=== PATIENT | female | born 1990 | race Caucasian/White ===

== ENCOUNTER 2018-02-03 12:10 | Emergency (ER) | payer SELFPAY ==
[~2018-02-03] VITALS: Ht 170.2 cm; Wt 154.5 kg
[2018-02-03 12:19] VITALS: Ht 170.2 cm; Wt 154.5 kg
[2018-02-03 12:52] LABS: BASOPHILS 0.2 % (0-2); EOSINOPHILS 0.5 % (0-7); HEMOGLOBIN 14.7 g/dL (12-16); IMMATURE GRANULOCYTES 0.2 % (0-5); LYMPHOCYTES 31.2 % (15-50); MCH 31.1 pg (26.0-34.0); MCV 88.8 fL (80.0-100.0); MEAN PLATELET VOLUME 10.1 fL (7.4-10.4); MONOCYTES 5.5 % (2-11); NEUTROPHILS 62.4 % (40-80); PLATELET COUNT 313 10x3/uL (130-400); RBC 4.73 10x6/uL (4.00-5.40); RDW 12.8 % (11.5-14.5); WBC 12.7 10x3/uL (4.8-10.8)
[2018-02-03 12:53] LABS: APPEARANCE HAZY (CLEAR); BACTERIA NONE SEEN /hpf (NONE SEEN); BILIRUBIN NEGATIVE (NEGATIVE); COLOR YELLOW (YELLOW); EPITHELIAL CELLS 0-5 /hpf (0-5); GLUCOSE NEGATIVE (NEGATIVE); KETONE NEGATIVE (NEGATIVE); NITRITE NEGATIVE (NEGATIVE); PROTEIN NEGATIVE (NEGATIVE); RED CELLS - URINE RARE /hpf (0-5); SPECIFIC GRAVITY 1.015 (1.005-1.020); UROBILINOGEN NORMAL (NORMAL); WHITE CELLS - URINE OCC /hpf (0-5)
[2018-02-03 13:06] LABS: ALBUMIN 3.7 g/dL (3.4-5.0); ALKALINE PHOSPHATASE 89 U/L (46-116); ALT (SGPT) 41 U/L (10-68); AMYLASE - SERUM 24 U/L (25-115); BILIRUBIN - TOTAL 0.26 mg/dL (0.2-1.3); CALC OSMOLALITY 269 mosm/kg (275-300); CALCIUM 9.3 mg/dL (8.5-10.1); CARBON DIOXIDE 24.6 mmol/L (21.0-32.0); CHLORIDE - SERUM 100 mmol/L (98-107); CREATININE - SERUM 0.8 mg/dL (0.6-1.3); GLUCOSE 94 mg/dL (74-106); LIPASE 99 U/L (73-393); POTASSIUM - SERUM 4.1 mmol/L (3.5-5.1); PROTEIN - SERUM 8.7 g/dL (6.4-8.2); SODIUM 135 mmol/L (136-145); UREA NITROGEN 13 mg/dL (7-18); eGFR NON AFRICAN AMERICAN 90 mL/min (90-120)
[2018-02-03 13:58] LABS: HCG URINE NEGATIVE (NEGATIVE)
[2018-02-03] MEDS ORDERED: ZOFRAN8 MG PO (16:10)
[2018-02-03 18:54] VITALS: BP 116/65
== END 2018-02-03 18:55 | disposition home or self-care (01) ==
LOC: D.ER 12:10
PROVIDERS: Emergency Medicine
DX: R10.32 Left lower quadrant pain (principal); F17.200 Nicotine dependence, unspecified, uncomplicated; R19.7 Diarrhea, unspecified

== ENCOUNTER 2018-02-05 17:42 | Emergency (ER) | payer MEDICAID ==
[~2018-02-05] VITALS: Ht 170.2 cm; Wt 154.5 kg
[~2018-02-05 17:42] MED LIST: ZOFRAN8 MG PO
[2018-02-05 17:53] VITALS: Ht 170.2 cm; Wt 154.5 kg
[2018-02-05] MEDS ORDERED: VIBRAMYCIN 100100 MG PO (19:01)
[2018-02-05] MEDS ORDERED: VOLTAREN75 MG PO (19:01)
[2018-02-05 19:55] VITALS: BP 132/90
== END 2018-02-05 19:55 | disposition home or self-care (01) ==
LOC: D.ER 17:42
DX: L03.113 Cellulitis of right upper limb (principal); F17.200 Nicotine dependence, unspecified, uncomplicated

== ENCOUNTER 2018-02-17 13:51 | Emergency (ER) | payer MEDICAID ==
[~2018-02-17 13:51] MED LIST changes: +VIBRAMYCIN 100100 MG PO; +VOLTAREN75 MG PO
[2018-02-17 14:05] VITALS: Ht 170.2 cm
[2018-02-17] MEDS ORDERED: TORADOL10 MG PO (15:17)
[2018-02-17] MEDS ORDERED: MEDROL DOSE PACK4 MG PO (15:17)
[2018-02-17] MEDS ORDERED: CLEOCIN HCL300 MG PO (15:17)
[2018-02-17 15:21] VITALS: BP 149/82
== END 2018-02-17 15:21 | disposition home or self-care (01) ==
LOC: D.ER 13:51
DX: R21 Rash and other nonspecific skin eruption (principal); F17.200 Nicotine dependence, unspecified, uncomplicated

== ENCOUNTER 2018-02-19 09:20 | Emergency (ER) | payer SELFPAY ==
[~2018-02-19] VITALS: Ht 170.2 cm; Wt 154.2 kg
[~2018-02-19 09:20] MED LIST changes: +CLEOCIN HCL300 MG PO; +MEDROL DOSE PACK4 MG PO; +TORADOL10 MG PO
[2018-02-19 09:29] VITALS: Ht 170.2 cm; Wt 154.2 kg
[2018-02-19 10:53] VITALS: BP 118/63
== END 2018-02-19 10:54 | disposition home or self-care (01) ==
LOC: D.ER 09:20
DX: L03.114 Cellulitis of left upper limb (principal)

== ENCOUNTER 2018-03-11 16:43 | Emergency (ER) | payer MEDICAID ==
[~2018-03-11] VITALS: Ht 170.2 cm; Wt 154.5 kg
[2018-03-11 16:45] VITALS: Ht 170.2 cm; Wt 154.5 kg
[2018-03-11] MEDS ORDERED: PEPCID AC20 MG PO (17:22)
[2018-03-11] MEDS ORDERED: KENALOG 0.1 % O15 GM TOPICAL (17:22)
[2018-03-11 17:40] VITALS: BP 146/89
[2018-03-12] MEDS ORDERED: MEDROL DOSE PACK4 MG PO (12:44)
== END 2018-03-11 17:41 | disposition home or self-care (01) ==
LOC: D.ER 16:43
DX: L50.9 Urticaria, unspecified (principal); F17.200 Nicotine dependence, unspecified, uncomplicated

== ENCOUNTER 2018-03-12 07:55 | Emergency (ER) | payer MEDICAID ==
[~2018-03-12] VITALS: Ht 170.2 cm; Wt 154.5 kg
[~2018-03-12 07:55] MED LIST changes: +KENALOG 0.1 % O15 GM TOPICAL; +PEPCID AC20 MG PO
[2018-03-12 07:58] VITALS: Ht 170.2 cm; Wt 154.5 kg
[2018-03-12 08:45] LABS: BASOPHILS 0.2 % (0-2); HEMATOCRIT 40.9 % (36.0-48.0); IMMATURE GRANULOCYTES 0.2 % (0-5); LYMPHOCYTES 34.7 % (15-50); MCH 31.2 pg (26.0-34.0); MCHC 34.2 g/dL (31.0-37.0); MCV 91.1 fL (80.0-100.0); MEAN PLATELET VOLUME 10.1 fL (7.4-10.4); MONOCYTES 6.5 % (2-11); NEUTROPHILS 57.4 % (40-80); PLATELET COUNT 252 10x3/uL (130-400); RBC 4.49 10x6/uL (4.00-5.40); RDW 13.2 % (11.5-14.5)
[2018-03-12 08:54] LABS: ALBUMIN 3.3 g/dL (3.4-5.0); ALKALINE PHOSPHATASE 74 U/L (46-116); ALT (SGPT) 23 U/L (10-68); BILIRUBIN - TOTAL 0.31 mg/dL (0.2-1.3); C-REACTIVE PROTEIN 1.8 mg/dL (0.0-0.9); CALC OSMOLALITY 274 mosm/kg (275-300); CARBON DIOXIDE 28.1 mmol/L (21.0-32.0); CHLORIDE - SERUM 104 mmol/L (98-107); CREATININE - SERUM 0.7 mg/dL (0.6-1.3); GLUCOSE 96 mg/dL (74-106); PROTEIN - SERUM 7.4 g/dL (6.4-8.2); SODIUM 138 mmol/L (136-145); UREA NITROGEN 9 mg/dL (7-18); eGFR NON AFRICAN AMERICAN > 90 mL/min (90-120)
[2018-03-12 09:59] LABS: ERYTHROCYTE SEDIMENTATION RATE 14 mm/hr (0-20)
[2018-03-12] MEDS ORDERED: MEDROL DOSE PACK4 MG PO (12:44)
[2018-03-12 13:04] VITALS: BP 141/65
[2018-03-13 06:15] LABS: RAPID PLASMA REAGIN Non Reactive (Non Reactive)
== END 2018-03-12 13:07 | disposition home or self-care (01) ==
LOC: D.ER 07:55
PROVIDERS: Family Medicine
DX: L50.9 Urticaria, unspecified (principal); T78.40XA Allergy, unspecified, initial encounter; J02.9 Acute pharyngitis, unspecified; F17.200 Nicotine dependence, unspecified, uncomplicated

== ENCOUNTER 2018-03-15 08:28 | Emergency (ER) | payer MEDICAID ==
[2018-03-15 08:35] VITALS: Ht 170.2 cm
[2018-03-15] MEDS ORDERED: HYDROXYZINE HCL50 MG PO (09:12)
[2018-03-15] MEDS ORDERED: ZITHROMAX TRI-500 MG PO (09:12)
[2018-03-15] MEDS ORDERED: NORCO 5/325 TAB1 TAB PO (09:13)
[2018-03-15 09:49] VITALS: BP 150/088
== END 2018-03-15 09:51 | disposition home or self-care (01) ==
LOC: D.ER 08:28
DX: L50.9 Urticaria, unspecified (principal); F17.200 Nicotine dependence, unspecified, uncomplicated

== ENCOUNTER 2018-04-02 12:39 | Emergency (ER) | payer MEDICAID ==
[~2018-04-02] VITALS: Ht 170.2 cm; Wt 168.2 kg
[~2018-04-02 12:39] MED LIST changes: +HYDROXYZINE HCL50 MG PO; +NORCO 5/325 TAB1 TAB PO; +ZITHROMAX TRI-500 MG PO
[2018-04-02 13:00] VITALS: Ht 170.2 cm; Wt 168.2 kg
[2018-04-02] MEDS ORDERED: VENTOLIN HFA18 GM INH (17:20)
[2018-04-02 17:45] VITALS: BP 131/77
== END 2018-04-02 17:46 | disposition home or self-care (01) ==
LOC: D.ER 12:39
DX: J40 Bronchitis, not specified as acute or chronic (principal); R09.89 Other specified symptoms and signs involving the circulatory and respiratory systems; F17.200 Nicotine dependence, unspecified, uncomplicated

== ENCOUNTER 2018-04-09 09:06 | Emergency (ER) | payer MEDICAID ==
[2018-04-09 09:57] LABS: BASOPHILS 0.2 % (0-2); EOSINOPHILS 1.2 % (0-7); HEMATOCRIT 41.5 % (36.0-48.0); HEMOGLOBIN 14.1 g/dL (12-16); IMMATURE GRANULOCYTES 0.5 % (0-5); LYMPHOCYTES 34.2 % (15-50); MCV 91.2 fL (80.0-100.0); MONOCYTES 4.4 % (2-11); NEUTROPHILS 59.5 % (40-80); PLATELET COUNT 250 10x3/uL (130-400); RBC 4.55 10x6/uL (4.00-5.40); RDW 13.3 % (11.5-14.5); WBC 10.5 10x3/uL (4.8-10.8)
[2018-04-09 10:17] LABS: ALBUMIN 3.3 g/dL (3.4-5.0); ALKALINE PHOSPHATASE 70 U/L (46-116); ALT (SGPT) 26 U/L (10-68); BILIRUBIN - TOTAL 0.26 mg/dL (0.2-1.3); CALC OSMOLALITY 275 mosm/kg (275-300); CALCIUM 8.6 mg/dL (8.5-10.1); CARBON DIOXIDE 24.2 mmol/L (21.0-32.0); CHLORIDE - SERUM 102 mmol/L (98-107); CREATININE - SERUM 0.6 mg/dL (0.6-1.3); GLUCOSE 112 mg/dL (74-106); POTASSIUM - SERUM 4.3 mmol/L (3.5-5.1); PROTEIN - SERUM 7.9 g/dL (6.4-8.2); SODIUM 137 mmol/L (136-145); UREA NITROGEN 14 mg/dL (7-18); eGFR NON AFRICAN AMERICAN > 90 mL/min (90-120)
== END 2018-04-09 11:38 | disposition home or self-care (01) ==
LOC: D.ER 09:06
PROVIDERS: Family Medicine
DX: R05 Cough (principal); R07.89 Other chest pain; R09.89 Other specified symptoms and signs involving the circulatory and respiratory systems; R07.81 Pleurodynia; F17.200 Nicotine dependence, unspecified, uncomplicated

== ENCOUNTER 2018-05-10 11:05 | Emergency (ER) | payer MEDICAID ==
[~2018-05-10] VITALS: Ht 170.2 cm; Wt 150.0 kg
[~2018-05-10 11:05] MED LIST changes: +ACETAMINOPHEN500 M1 PO; +CYCLOBENZAPRINE10 MG PO; +SCOT-TUSSI10 MG/5 ML PO; +VENTOLIN HFA18 GM INH
[2018-05-10 11:36] VITALS: Ht 170.2 cm; Wt 150.0 kg
[2018-05-10] MEDS ORDERED: ZANTAC300 MG PO (11:39)
[2018-05-10] MEDS ORDERED: ZYRTEC10 MG PO (11:41)
[2018-05-10] MEDS ORDERED: FIORICET/ESGIC1 TAB PO (11:41)
[2018-05-10] MEDS ORDERED: PENICILLIN V P500 MG PO (11:42)
[2018-05-10 14:27] LABS: HEMATOCRIT 37.1 % (36.0-48.0); HEMOGLOBIN 12.9 g/dL (12-16); LYMPHOCYTES 30.6 % (15-50); MCHC 34.8 g/dL (31.0-37.0); MCV 89.2 fL (80.0-100.0); MEAN PLATELET VOLUME 10.1 fL (7.4-10.4); NEUTROPHILS 63.3 % (40-80); PLATELET COUNT 232 10x3/uL (130-400); RBC 4.16 10x6/uL (4.00-5.40); RDW 12.4 % (11.5-14.5); WBC 10.7 10x3/uL (4.8-10.8)
[2018-05-10 14:30] LABS: ALBUMIN 3.2 g/dL (3.4-5.0); ALKALINE PHOSPHATASE 66 U/L (46-116); ALT (SGPT) 28 U/L (10-68); BILIRUBIN - TOTAL 0.22 mg/dL (0.2-1.3); CALC OSMOLALITY 275 mosm/kg (275-300); CALCIUM 8.5 mg/dL (8.5-10.1); CARBON DIOXIDE 25.9 mmol/L (21.0-32.0); CHLORIDE - SERUM 103 mmol/L (98-107); CREATININE - SERUM 0.7 mg/dL (0.6-1.3); GLUCOSE 90 mg/dL (74-106); POTASSIUM - SERUM 3.9 mmol/L (3.5-5.1); PROTEIN - SERUM 7.3 g/dL (6.4-8.2); SODIUM 138 mmol/L (136-145); UREA NITROGEN 13 mg/dL (7-18); eGFR NON AFRICAN AMERICAN > 90 mL/min (90-120)
[2018-05-10] MEDS ORDERED: ZOFRAN4 MG PO (14:39)
[2018-05-10 14:52] VITALS: BP 119/40
== END 2018-05-10 14:54 | disposition home or self-care (01) ==
LOC: D.ER 11:05
PROVIDERS: Family Medicine
DX: G43.909 Migraine, unspecified, not intractable, without status migrainosus (principal); R11.2 Nausea with vomiting, unspecified; F17.200 Nicotine dependence, unspecified, uncomplicated

== ENCOUNTER → 2018-06-15 08:49 | Outpatient (CLI) | payer MEDICAID ==
[2018-05-10 11:36] VITALS: BMI 51.8
[~2018-06-15 08:49] MED LIST changes: +FIORICET/ESGIC1 TAB PO; +PENICILLIN V P500 MG PO; +ZANTAC300 MG PO; +ZOFRAN4 MG PO; +ZYRTEC10 MG PO
== END | disposition home or self-care (01) ==
LOC: D.RAD 08:49
DX: R05 Cough (principal)

== ENCOUNTER → 2018-06-29 17:48 | Outpatient (CLI) | payer MEDICAID ==
[2018-05-10 11:36] VITALS: BMI 51.8
[~2018-06-29 17:48] MED LIST changes: +ADDERALL 10 MG10 MG PO; +ADDERALL 20 MG20 M1 PO; +IBUPROFEN800 MG PO; +KLONOPIN0.5 MG PO
== END | disposition home or self-care (01) ==
LOC: D.LABREF 17:48
PROVIDERS: ATTEND Student in an Organized Health Care Education/Training Program
DX: R53.83 Other fatigue (principal)

== ENCOUNTER 2018-07-05 11:21 | Emergency (ER) | payer MEDICAID ==
[~2018-07-05] VITALS: Ht 170.2 cm; Wt 172.7 kg
[~2018-07-05 11:21] MED LIST changes: -ADDERALL 10 MG10 MG PO; -ADDERALL 20 MG20 M1 PO; -IBUPROFEN800 MG PO; -KLONOPIN0.5 MG PO
[2018-07-05 11:26] VITALS: Ht 170.2 cm; Wt 172.7 kg
[2018-07-05] MEDS ORDERED: ADDERALL 20 MG20 M1 PO (11:28)
[2018-07-05] MEDS ORDERED: IBUPROFEN800 MG PO (11:29)
[2018-07-05] MEDS ORDERED: KLONOPIN0.5 MG PO (11:29)
[2018-07-05] MEDS ORDERED: ADDERALL 10 MG10 MG PO (11:29)
[2018-07-05 12:14] LABS: BASOPHILS 0.5 % (0-2); EOSINOPHILS 0.6 % (0-7); HEMATOCRIT 39.3 % (36.0-48.0); HEMOGLOBIN 13.4 g/dL (12-16); IMMATURE GRANULOCYTES 0.3 % (0-5); LYMPHOCYTES 33.6 % (15-50); MCH 30.7 pg (26.0-34.0); MCHC 34.1 g/dL (31.0-37.0); MCV 90.1 fL (80.0-100.0); MEAN PLATELET VOLUME 10.2 fL (7.4-10.4); RBC 4.36 10x6/uL (4.00-5.40); RDW 12.9 % (11.5-14.5); WBC 10.9 10x3/uL (4.8-10.8)
[2018-07-05 12:19] LABS: PLATELET COUNT 282 10x3/uL (130-400)
[2018-07-05 12:20] LABS: APPEARANCE CLEAR (CLEAR); BILIRUBIN NEGATIVE (NEGATIVE); COLOR YELLOW (YELLOW); GLUCOSE NEGATIVE (NEGATIVE); KETONE NEGATIVE (NEGATIVE); NITRITE NEGATIVE (NEGATIVE); PROTEIN NEGATIVE (NEGATIVE); UROBILINOGEN NORMAL (NORMAL)
[2018-07-05 12:28] LABS: HCG SERUM NEGATIVE (NEGATIVE)
[2018-07-05 12:35] LABS: ALBUMIN 3.5 g/dL (3.4-5.0); ALKALINE PHOSPHATASE 83 U/L (46-116); ALT (SGPT) 32 U/L (10-68); AMYLASE - SERUM 20 U/L (25-115); BILIRUBIN - TOTAL 0.27 mg/dL (0.2-1.3); CALC OSMOLALITY 274 mosm/kg (275-300); CALCIUM 8.8 mg/dL (8.5-10.1); CARBON DIOXIDE 26.2 mmol/L (21.0-32.0); CHLORIDE - SERUM 101 mmol/L (98-107); CREATININE - SERUM 0.6 mg/dL (0.6-1.3); GLUCOSE 90 mg/dL (74-106); LIPASE 72 U/L (73-393); POTASSIUM - SERUM 4.3 mmol/L (3.5-5.1); SODIUM 138 mmol/L (136-145); UREA NITROGEN 10 mg/dL (7-18); eGFR NON AFRICAN AMERICAN > 90 mL/min (90-120)
[2018-07-05] MEDS ORDERED: TORADOL10 MG PO (18:07)
[2018-07-05 19:33] VITALS: BP 148/78
== END 2018-07-05 19:36 | disposition home or self-care (01) ==
LOC: D.ER 11:21
PROVIDERS: Family Medicine
DX: N94.89 Other specified conditions associated with female genital organs and menstrual cycle (principal); F17.200 Nicotine dependence, unspecified, uncomplicated

== ENCOUNTER → 2018-07-19 08:15 | Outpatient (CLI) | payer MEDICAID ==
[2018-07-05 11:26] VITALS: BMI 59.6
[~2018-07-19 08:15] MED LIST changes: +ADDERALL 10 MG10 MG PO; +ADDERALL 20 MG20 M1 PO; +IBUPROFEN800 MG PO; +KLONOPIN0.5 MG PO; +ZOLOFT25 MG PO
== END | disposition home or self-care (01) ==
LOC: D.CT 08:00
PROVIDERS: ATTEND Internal Medicine Gastroenterology
DX: R10.33 Periumbilical pain (principal); R10.812 Left upper quadrant abdominal tenderness; R11.2 Nausea with vomiting, unspecified

== ENCOUNTER → 2018-07-25 06:00 | Day surgery (SDC) | payer MEDICAID ==
[2018-07-24 11:11] LABS: BASOPHILS 0.3 % (0-2); EOSINOPHILS 0.8 % (0-7); HEMATOCRIT 38.6 % (36.0-48.0); HEMOGLOBIN 13.2 g/dL (12-16); IMMATURE GRANULOCYTES 0.3 % (0-5); LYMPHOCYTES 30.3 % (15-50); MCH 30.8 pg (26.0-34.0); MCHC 34.2 g/dL (31.0-37.0); MEAN PLATELET VOLUME 10.1 fL (7.4-10.4); MONOCYTES 4.3 % (2-11); PLATELET COUNT 294 10x3/uL (130-400); RBC 4.29 10x6/uL (4.00-5.40); WBC 11.8 10x3/uL (4.8-10.8)
[~2018-07-25] VITALS: Ht 170.2 cm; Wt 176.0 kg
--- NOTE | ~2018-07-25 | OP ---
PATIENT NAME: RAY HERRING MEDICAL RECORD: [id number] :86 LOCATION:[facility] ADMISSION DATE: SURGEON: RAYMOND MANDUJANO MD DATE OF OPERATION: 07/25/2018 PREOPERATIVE DIAGNOSIS: Vulvar and periclitoral condyloma. POSTOPERATIVE DIAGNOSIS: Vulvar and periclitoral condyloma. PROCEDURE: Laser ablation of vulvar condyloma. SPECIMENS: Periclitoral condyloma. COMPLICATIONS: None apparent. FINDINGS: One 3- to 4-mm right vulvar condyloma, several 1-mm condyloma in the posterior fourchette, and a 2- to 3-mm periclitoral condyloma. DESCRIPTION OF PROCEDURE: I became involved in the procedure following the portion performed by Dr. Benton. The patient was prepped and draped in normal sterile fashion in the dorsal lithotomy position. The carbon dioxide laser was then calibrated and tested on a wooden tongue depressor. At this point, attention was turned to her right 3- to 4-mm vulvar condyloma, which was laser ablated to the level of the dermis, which remained intact. Following complete removal of condyloma, the Bovie cautery was used on a very low setting at the edges to decrease the size of the epidermal defect. Two to three 1-mm condylomas were then removed from the posterior fourchette. Attention was then turned to the prepuce of the clitoris where, on the left aspect, a 3-mm condyloma was identified. This was grasped with a forceps and removed at the level of the epidermis using the Metzenbaum scissors. The Bovie cautery on a very low setting was then used to ablate the surgical margins. The epidermal defect did not extend into the dermis and all sites were hemostatic. The patient tolerated the procedure well and was transferred to postanesthesia recovery stable without incident. TRANSINT:[id number] Voice Confirmation ID: [id number] DOCUMENT ID: [id number] RAYMOND MANDUJANO MD CC: [id number] DICTATION DATE: 08/05/18623 ACTIMIZE ARCHITECT: 08/05/18 1517 [facility] 07/25/18 [place] [address]
[~2018-07-25 06:00] MED LIST changes: +HYDROCODON-ACE1 EAC7 PO; +MIRALAX17 GM PO; +VALIUM5 MG PO
[2018-07-25 07:04] VITALS: BP 125/79; Ht 170.2 cm; Wt 176.0 kg
[2018-07-25 07:20] LABS: HCG URINE NEGATIVE (NEGATIVE)
== END | disposition home or self-care (01) ==
LOC: D.OPS 06:00 → D.PAN 08:15 → D.OPS 10:45 → D.PAN 10:45
PROVIDERS: Obstetrics & Gynecology; ATTEND Surgery
DX: K60.1 Chronic anal fissure (principal); A63.0 Anogenital (venereal) warts; N80.0 Endometriosis of uterus; R19.8 Other specified symptoms and signs involving the digestive system and abdomen; K64.0 First degree hemorrhoids; Z01.812 Encounter for preprocedural laboratory examination

== ENCOUNTER 2018-07-26 09:54 | Emergency (ER) | payer MEDICAID ==
[~2018-07-26] VITALS: Ht 170.2 cm; Wt 173.2 kg
[2018-07-26 10:05] VITALS: Ht 170.2 cm; Wt 173.2 kg
[2018-07-26 11:14] VITALS: BP 136/84
== END 2018-07-26 11:20 | disposition home or self-care (01) ==
LOC: D.ER 09:54
DX: G89.18 Other acute postprocedural pain (principal); F17.210 Nicotine dependence, cigarettes, uncomplicated; F41.8 Other specified anxiety disorders

== ENCOUNTER 2018-08-23 08:01 | Emergency (ER) | payer MEDICAID ==
[~2018-08-23] VITALS: Ht 170.2 cm; Wt 175.0 kg
[2018-08-23 08:11] VITALS: Ht 170.2 cm; Wt 175.0 kg
[2018-08-23] MEDS ORDERED: LEXAPRO10 MG (08:15)
[2018-08-23] MEDS ORDERED: PEPCID AC20 MG PO (08:47)
[2018-08-23] MEDS ORDERED: BENADRYL50 MG PO (08:47)
[2018-08-23] MEDS ORDERED: PREDNISONE20 MG PO (08:47)
[2018-08-23 09:21] VITALS: BP 132/70
== END 2018-08-23 09:17 | disposition home or self-care (01) ==
LOC: D.ER 08:01
DX: R21 Rash and other nonspecific skin eruption (principal); F17.200 Nicotine dependence, unspecified, uncomplicated

== ENCOUNTER 2018-08-30 13:19 | Emergency (ER) | payer MEDICAID ==
[~2018-08-30 13:19] MED LIST changes: +BENADRYL50 MG PO; +LEXAPRO10 MG; +PREDNISONE20 MG PO
[2018-08-30 13:26] VITALS: BP 158/86; BMI 60.4
[2018-08-30] MEDS ORDERED: VOLTAREN75 MG PO (14:12)
== END 2018-08-30 14:19 | disposition home or self-care (01) ==
LOC: D.ER 13:19
DX: R10.9 Unspecified abdominal pain (principal)

== ENCOUNTER 2018-09-09 09:56 | Emergency (ER) | payer MEDICAID ==
[2018-09-09 10:11] VITALS: BMI 60.4
[2018-09-09 11:26] VITALS: BP 132/88
== END 2018-09-09 11:31 | disposition home or self-care (01) ==
LOC: D.ER 09:56
DX: L50.9 Urticaria, unspecified (principal)

== ENCOUNTER 2018-09-12 11:11 | Emergency (ER) | payer MEDICAID ==
[~2018-09-12] VITALS: Ht 170.2 cm; Wt 173.3 kg
[2018-09-12 11:15] VITALS: Ht 170.2 cm; Wt 173.3 kg
[2018-09-12 11:53] LABS: BASOPHILS 0.2 % (0-2); HEMATOCRIT 41.4 % (36.0-48.0); IMMATURE GRANULOCYTES 0.2 % (0-5); LYMPHOCYTES 29.9 % (15-50); MCH 29.9 pg (26.0-34.0); MCHC 33.8 g/dL (31.0-37.0); MCV 88.3 fL (80.0-100.0); MEAN PLATELET VOLUME 10.3 fL (7.4-10.4); MONOCYTES 6.5 % (2-11); NEUTROPHILS 62.2 % (40-80); PLATELET COUNT 291 10x3/uL (130-400); RBC 4.69 10x6/uL (4.00-5.40); RDW 13.4 % (11.5-14.5); WBC 12.6 10x3/uL (4.8-10.8)
[2018-09-12 12:00] VITALS: BP 142/76
[2018-09-12 12:12] LABS: APPEARANCE CLEAR (CLEAR); BILIRUBIN NEGATIVE (NEGATIVE); COLOR YELLOW (YELLOW); GLUCOSE NEGATIVE (NEGATIVE); KETONE NEGATIVE (NEGATIVE); NITRITE NEGATIVE (NEGATIVE); PROTEIN NEGATIVE (NEGATIVE); UROBILINOGEN NORMAL (NORMAL)
[2018-09-12 12:13] LABS: BACTERIA FEW /hpf (NONE SEEN); EPITHELIAL CELLS 0-5 /hpf (0-5); RED CELLS - URINE RARE /hpf (0-5); WHITE CELLS - URINE RARE /hpf (0-5)
[2018-09-12 12:18] LABS: HCG URINE NEGATIVE (NEGATIVE)
[2018-09-12 12:20] LABS: ALBUMIN 3.2 g/dL (3.4-5.0); ALKALINE PHOSPHATASE 70 U/L (46-116); ALT (SGPT) 21 U/L (10-68); BILIRUBIN - TOTAL 0.17 mg/dL (0.2-1.3); CALC OSMOLALITY 274 mosm/kg (275-300); CALCIUM 8.5 mg/dL (8.5-10.1); CARBON DIOXIDE 26.3 mmol/L (21.0-32.0); CHLORIDE - SERUM 100 mmol/L (98-107); CREATININE - SERUM 0.7 mg/dL (0.6-1.3); GLUCOSE 96 mg/dL (74-106); PROTEIN - SERUM 7.5 g/dL (6.4-8.2); SODIUM 138 mmol/L (136-145); UREA NITROGEN 10 mg/dL (7-18); eGFR NON AFRICAN AMERICAN > 90 mL/min (90-120)
[2018-09-12 12:22] LABS: AMYLASE - SERUM 21 U/L (25-115); LIPASE 79 U/L (73-393)
[2018-09-12 12:24] LABS: TROPONIN-I < 0.017 ng/mL (0.000-0.060)
[2018-09-12] MEDS ORDERED: VISTARIL25 MG PO (13:54)
--- NOTE | 2018-09-13 17:30 | PN ---
PATIENT:RAY OBRIEN MEDICAL RECORD: [id number] LOCATION:[facility] ADMISSION DATE: 09/12/18 PROGRESS NOTE DATE OF SERVICE: 09/12/2018 PROGRESS NOTE: I was asked by the Emergency Room staff to come and see Ms. Obrien. She presents again complaining of abdominal pain as well as hives and nausea. I came to the patient's bedside. The entire history as well as physical examination was performed in the presence of a female director of human resources. Her PCP is Tj Richard. The patient has an appointment with Dr. Valdes sometime next month to discuss removal of some mesh. She states that she has a Ventrio ST mesh that has been recalled and she is certain that this is the source of her problem. She has seen Dr. Odell and he has done a laparoscopy on her. The patient is accompanied by her father. She has a normal eosinophil count. She states she has had hives since November. She has been told by a healthcare provider that he thought that the hives were due to a mesh infection. I performed limited physical examination on the patient. She does have some pain in the periumbilical area. This may be pain around the edge of the mesh. Sometimes when the abdominal wall is stretched, there could be pain at the margins of the mesh. So there is a possibility that the mesh could be causing pain, but I do not think it is causing hives and that is her main symptom. I discussed with them that removal of mesh for pain is not part of my practice. I told him I am not sure that it is part of Dr. Valdes's practice either. They are very insistent that the mesh be removed. The mesh was placed in [place] for umbilical hernia. The patient is very tearful and cried almost the entire time I was discussing things with her. I have asked her if she has ever sought a surgical opinion elsewhere regarding removal of the mesh and she states that she had not. I told her that we really cannot fit her in any earlier in the office and that it may be to her benefit to seek a surgical opinion elsewhere where she might be able to get in to see a surgeon quicker. I told them that it is very difficult to remove the mesh laparoscopically and that frequently it will cause a lot of pain and you almost always have to replace the mesh with another piece of mesh in order to prevent a recurrent hernia. I am not sure they were satisfied with this explanation, but I wished them luck. TRANSINT:[id number] Voice Confirmation ID: [id number] DOCUMENT ID: [id number] EBEN GEIGER MD at 1730 CC: TJ RICHARD DO and ANURADHA VALDES MD [id number] DICTATION DATE: 09/12/18 1355 MARINE PAINTER: 09/12/18 1435 [facility] 09/12/18 [id number] [place] [address]
== END 2018-09-12 14:18 | disposition home or self-care (01) ==
LOC: D.ER 11:11
PROVIDERS: Family Medicine
DX: R10.9 Unspecified abdominal pain (principal); L50.1 Idiopathic urticaria

== ENCOUNTER 2018-09-26 08:28 | Outpatient (CLI) | payer MEDICAID ==
[~2018-09-26] VITALS: Ht 170.2 cm; Wt 173.6 kg
[~2018-09-26 08:28] MED LIST changes: +VISTARIL25 MG PO
[2018-09-26 08:56] LABS: HEMATOCRIT 40.9 % (36.0-48.0); HEMOGLOBIN 13.9 g/dL (12-16); MCH 30.1 pg (26.0-34.0); MCV 88.5 fL (80.0-100.0); MEAN PLATELET VOLUME 10.3 fL (7.4-10.4); RBC 4.62 10x6/uL (4.00-5.40); RDW 13.8 % (11.5-14.5); WBC 11.5 10x3/uL (4.8-10.8)
[2018-09-26 09:04] VITALS: BP 135/80; Ht 170.2 cm; Wt 173.6 kg
== END 2018-09-26 10:33 | disposition home or self-care (01) ==
LOC: D.OPS 08:28
PROVIDERS: Anesthesiology; ATTEND Internal Medicine Gastroenterology
DX: R19.4 Change in bowel habit (principal); R11.2 Nausea with vomiting, unspecified

== ENCOUNTER 2018-10-17 11:42 | Emergency (ER) | payer MEDICAID ==
[~2018-10-17] VITALS: Ht 170.2 cm; Wt 177.3 kg
[2018-10-17 12:09] VITALS: Ht 170.2 cm; Wt 177.3 kg
[2018-10-17] MEDS ORDERED: TYLENOL #4 W/CO1 TAB PO (12:14)
[2018-10-17] MEDS ORDERED: CYCLOBENZAPRINE10 MG PO (12:15)
[2018-10-17 17:00] VITALS: BP 124/89
== END 2018-10-17 17:01 | disposition home or self-care (01) ==
LOC: D.ER 11:42
DX: M54.16 Radiculopathy, lumbar region (principal)

== ENCOUNTER 2018-10-31 07:20 | Inpatient (IN) | payer MEDICAID ==
[2018-10-26 10:43] LABS: BASOPHILS 0.3 % (0-2); EOSINOPHILS 0.3 % (0-7); HEMATOCRIT 40.4 % (36.0-48.0); HEMOGLOBIN 13.8 g/dL (12-16); IMMATURE GRANULOCYTES 0.3 % (0-5); LYMPHOCYTES 31.1 % (15-50); MCH 30.1 pg (26.0-34.0); MCHC 34.2 g/dL (31.0-37.0); MCV 88.2 fL (80.0-100.0); MONOCYTES 6.4 % (2-11); NEUTROPHILS 61.6 % (40-80); PLATELET COUNT 262 10x3/uL (130-400); RBC 4.58 10x6/uL (4.00-5.40); RDW 13.7 % (11.5-14.5); WBC 11.8 10x3/uL (4.8-10.8)
[2018-10-26 11:03] LABS: CALC OSMOLALITY 276 mosm/kg (275-300); CALCIUM 9.1 mg/dL (8.5-10.1); CARBON DIOXIDE 27.4 mmol/L (21.0-32.0); CHLORIDE - SERUM 102 mmol/L (98-107); CREATININE - SERUM 0.7 mg/dL (0.6-1.3); GLUCOSE 87 mg/dL (74-106); POTASSIUM - SERUM 4.6 mmol/L (3.5-5.1); SODIUM 139 mmol/L (136-145); UREA NITROGEN 13 mg/dL (7-18); eGFR NON AFRICAN AMERICAN > 90 mL/min (90-120)
[2018-10-31] VITALS (11 sets, daily range): BP systolic 101–149; BP diastolic 55–85; Ht 170.2 cm; Wt 177.3 kg
[~2018-10-31] VITALS: Ht 170.2 cm; Wt 177.3 kg
[~2018-10-31 07:20] MED LIST changes: +TYLENOL #4 W/CO1 TAB PO
[2018-10-31 07:49] LABS: HCG URINE NEGATIVE (NEGATIVE)
--- NOTE | 2018-10-31 13:16 | NUR ---
VOICED THAT PT COULD HAVE TORADOL 30MG IV IF NEEDED FOR PAIN. V.O. READ BACK CORRECT. WILL CONTINUE TO MONITOR PAIN.
--- NOTE | 2018-10-31 14:26 | NUR ---
PT RCVD VIA BED FROM RECOVERY TO ROOM 1276. PT AAOx3, CRYING IN PAIN, RATING PAIN 10/10. PT ON 2L OXYGEN VIA NC, O2 SATS 97%. VSS, SEE FLOWSHEET. LR INFUSING ORDERED TO PT'S LEFT HAND PIV. ABD INCISION AT UMBILICUS AND LOW TRANSVERS ABD INCISION ARE BOTH C/D WITH DERMABOND INTACT. PERIPAD PLACED TO LOW ABD INCISION TO ABSORB MOISTURE. ICE PACK TO INCISION. NO VAGINAL BLEEDING NOTED, PERIPAD PLACED TO MONITOR. GUNDERSON CATH IS DRAINING DARK YELLOW URINE TO BEDSIDE DRAINAGE. SCD'S ON LE BILAT AND ON PUMP. PT INSTRUCTED ON INCENTIVE SPIROMETER, UNDERSTANDING VERBALIZED. WILL SET UP CLOTHING PATTERN PREPARER ORDERED FOR PAIN CONTROL.
--- NOTE | 2018-10-31 14:33 | NUR ---
GEAR CUTTING MACHINE SET UP OPERATOR SETUP ORDERED, SEE EMAR FOR DOC. 0.4MG BOLUS DOSE ADMIN VIA GEAR CUTTING MACHINE SET UP OPERATOR PER ORDER. PT AND FAMILY INSTRUCTED ON GEAR CUTTING MACHINE SET UP OPERATOR AND IS PT ADMIN ONLY. UNDERSTANDING VERBALIZED.
--- NOTE | 2018-10-31 14:33 | NUR ---
DILAUDID SANITATION ENGINEER SET UP ORDERED, SEE EMAR FOR DOC. PT AND FAMILY INSTRUCTED ON USE AND THAT ONLY PT MAY PRESS BUTTON. UNDERSTANDING VERBALIZED. SRUX2, CL IN REACH. WILL CONT TO MONITOR.
--- NOTE | 2018-10-31 14:45 | NUR ---
PT REPORTS SOME RELIEF FROM PAIN WITH SPECIALTY PERSON. ICE WATER GIVEN. PT ENCOURAGED TO SIP SLOWLY AND REPORT ANY NAUSEA. EMESIS BAG GIVEN. SRUx2, CL IN REACH.
--- NOTE | 2018-10-31 16:09 | NUR ---
NEW BAG LR UP AT 125ML/H ORDERED. REGLAN ADMIN IVP ORDERED. SEE EMAR FOR MED DOC.
--- NOTE | 2018-10-31 16:15 | NUR ---
INCISION AND PERIPAD CHECKED, NO CHANGES NOTED. C/D, NO DRAINAGE.
--- NOTE | 2018-10-31 16:20 | NUR ---
PT C/O PAIN RATED 8/10, STATES HIGHWAY WORKER IS ONLY PROVIDING "A LITTLE" RELIEF FROM PAIN. DR WYMAN ON UNIT, NOTIFIED OF PT'S COMPLAINTS. STATES WILL GO SEE PT.
--- NOTE | 2018-10-31 16:32 | NUR ---
DR WYMAN AT BEDSIDE. DISCUSSING PT'S PAIN AND POC. ORDER RCVD TO ADMIN 0.5MG BOLUS DOSE DILAUDID NOW VIA PROCESS DEVELOPER, AND CHANGE PT'S PROCESS DEVELOPER ADMIN CRITERIA TO 0.3MG/6MIN WITH 8MG/4HOUR LOCKOUT, WITH 0.5MG BOLUS DOSE PRN Q3H. PHARMACY NOTIFIED AND CRITERIA UPDATED.
--- NOTE | 2018-10-31 16:33 | NUR ---
0.5MG DILAUDID BOLUS ADMIN ORDERED BY DR WYMAN AT BEDSIDE.
--- NOTE | 2018-10-31 16:45 | NUR ---
PT REPORTS MUCH BETTER PAIN RELIEF AFTER INSULATION BOARD HEAD SAW OPERATOR BOLUS AND INCREASING DOSE ORDERED. WILL CONT TO MONITOR.
[2018-10-31 17:13] LABS: HEMATOCRIT 41.4 % (36.0-48.0); HEMOGLOBIN 13.9 g/dL (12-16); MCHC 33.6 g/dL (31.0-37.0); MCV 89.4 fL (80.0-100.0); MEAN PLATELET VOLUME 10.4 fL (7.4-10.4); PLATELET COUNT 266 10x3/uL (130-400); RBC 4.63 10x6/uL (4.00-5.40); RDW 13.7 % (11.5-14.5); WBC 21.8 10x3/uL (4.8-10.8)
[2018-10-31 17:37] LABS: CALC OSMOLALITY 276 mosm/kg (275-300); CALCIUM 8.7 mg/dL (8.5-10.1); CHLORIDE - SERUM 102 mmol/L (98-107); CREATININE - SERUM 0.7 mg/dL (0.6-1.3); GLUCOSE 107 mg/dL (74-106); POTASSIUM - SERUM 4.7 mmol/L (3.5-5.1); SODIUM 138 mmol/L (136-145); UREA NITROGEN 14 mg/dL (7-18); eGFR NON AFRICAN AMERICAN > 90 mL/min (90-120)
--- NOTE | 2018-10-31 18:13 | NUR ---
NEW MOLD RELEASE WORKER VIAL VERIFIED WITH DINESH ADAMS.
[2018-10-31 18:57] LABS: EOSINOPHILS 2 % (0-7); LYMPHOCYTES 7 % (15-50); MONOCYTES 1 % (2-11); NEUTROPHILS 84 % (40-80); PLATELET ESTIMATE NORMAL
--- NOTE | 2018-10-31 19:00 | NUR ---
REPORT TO PM SHIFT.
--- NOTE | 2018-10-31 19:05 | NUR ---
REPORT RECIEVED FROM JOAQUIM MONTIEL.
--- NOTE | 2018-10-31 20:00 | NUR ---
PATIENT LYING QUIETLY IN BED WITH EYES CLOSED. EASILY AROUSED. STATES PAIN 6 OUT OF 10. ASSESSMENT DONE. RESPIRATIONS AT EASE. LUNG SOUNDS CLEAR IN ALL GARCIA. HEART REGULAR RATE AND RHYTHM. ABDOMEN SOFT AND TENDER TO TOUCH. INCISION TO UMBILICUS AND TRANSVERSE INCISION TO LOWER ABDOMEN NOTED. NO REDNESS, EDEMA, OR DRAINAGE NOTED. BOWEL SOUNDS HYPOACTIVE IN ALL QUADRANTS. NO EDEMA NOTED TO EXTREMITIES. SCD'S ON AND WORKING. PATIENT EDUCATED ON COUGHING AND DEEP BREATHING WELL USE OF INCENTIVE SPIROMETER. PATIENT DEMONSTRATED KNOWLEDGE. PATIENT REPOSITIONS SELF IN BED. BED IN LOWEST POSITION, SIDE RAILS UP X 2, C/L AND WATER WITHIN USE.
--- NOTE | 2018-10-31 21:30 | NUR ---
PATIENT LYING QUIETLY IN BED WITH EYES CLOSED. RESPIRATIONS AT EASE. BED IN LOWEST POSITION, SIDE RAILS UP X 2, C/L, DISTRIBUTION ENGINEER BUTTON, AND WATER WITHIN REACH.
--- NOTE | 2018-10-31 23:02 | NUR ---
PATIENT LYING QUIETLY IN BED WITH EYES CLOSED. RESPIRATIONS AT EASE. BED IN LOWEST POSITION, SIDE RAILS UP X 2, WATER WITHIN REACH, C/L AND AEROPHYSICIST BUTTON WITHIN REACH.
--- NOTE | 2018-10-31 23:59 | NUR ---
PATIENT LYING QUIETLY IN BED WITH EYES CLOSED. EASILY AROUSED. STATES HER PAIN LEVEL IS 6 OUT OF 10. PATIENT PUSHED CARBIDE GRINDER BUTTON AT THIS TIME. PATIENT DENIES ANY FURTHER NEEDS. BED IN LOWEST POSITION, SIDE RAILS UP X 2, C/L AND WATER WITHIN REACH.
--- NOTE | 2018-11-01 00:13 | NUR ---
PATIENT SITTING UP IN BED. STATES PAIN 7 OUT OF 10. SUPERVISOR COMPRESSED YEAST SYRINGE EMPTY. REPLACED SUPERVISOR COMPRESSED YEAST SYRINGE AT THIS TIME. SEE MAR. BOLUS OF 0.5 MG ADMINISTERED AT THIS TIME PER PAIENT REQUEST. SABINO MONTIEL SECOND WITNESS. PATIENT DENIES ANY FURTHER NEEDS. BED IN LOWEST POSITION, SIDE RAILS UP X 2, C/L, WATER AND SUPERVISOR COMPRESSED YEAST BUTTON WITHIN REACH.
--- NOTE | 2018-11-01 02:07 | NUR ---
PATIENT SITTING UP IN BED. STATES PAIN IS 7 OUT OF 10. SCHEDULED TORADOL 30 MG ADMINISTERED SLOW IVP. PATIENT DENIES ANY FURTHER NEEDS. BED IN LOWEST POSITION, SIDE RAILS UP X 2, C/L, WATER, AND SPANISH LITERATURE PROFESSOR BUTTON WITHIN REACH.
--- NOTE | 2018-11-01 04:02 | NUR ---
PATIENT LYING QUIETLY IN BED WITH EYES CLOSED. RESPIRATIONS AT EASE. NO SIGNS OF DISTRESS NOTED. BED IN LOWEST POSITION, SIDE RAILS UP X 2, C/L, WATER, AND ADMIN ASST BUTTON WITHIN REACH.
--- NOTE | 2018-11-01 06:10 | NUR ---
CALLED AT THIS TIME. REPORT GIVEN THAT SUPERIOR COURT CLERK SYRINGE IS EMPTY. ORDERS RECEIVED TO SALINE LOCK IV, D/C GUNDERSON, WELL PO MEDICATIONS. SEE MAR FOR NEW MEDICATIONS. ORDERS REPEATED AND VERIFIED.
--- NOTE | 2018-11-01 06:15 | NUR ---
PATIENT SITTING UP IN BED. TEACHER THEATER ARTS DISCONTINUED PER DR. SAWANT ORDER. IV SALINE LOCKED. GUNDERSON CATHETER DISCONTINUED PER DR. WYMAN. 1300 CC'S OF DARK YELLOW URINE NOTED IN GUNDERSON BAG. JOSE PAD CHANGED. PATIENT DENIES ANY FURTHER NEEDS. BED IN LWEST POSITION, SIDE RAILS UP X 2, C/L AND WATER WITHIN REACH.
[2018-11-01 06:21] VITALS: BP 106/53
--- NOTE | 2018-11-01 06:44 | NUR ---
PATIENT SITTING UP IN BED. STATES PAIN 9 OUT OF 10. PRN PERCOCET 10/325 ADMINISTERED PO AT THIS TIME. PATIENT DENIES FURTHER NEEDS. BED IN LOWEST POSITION, SIDE RAILS UP X 2, C/L AND WATER WITHIN REACH.
--- NOTE | 2018-11-01 06:55 | NUR ---
PATIENT REQUESTING TO AMBULATE IN ROOM. ASSISTED PATIENT OUT OF BED. PATIENT AMBULATED IN ROOM. ASSISTED PATIENT BACK TO BED. BED IN LOWEST POSITION, SIDE RAILS UP X 2, C/L AND WATER WITHIN REACH.
[2018-11-01 07:39] VITALS: BP 110/56
--- NOTE | 2018-11-01 07:50 | NUR ---
ENTERED ROOM. PT AWAKE AND TALKING ON PHONE. ASSESSMENT DONE. VERBAL RESPONSES APPRO TO QUESTIONS. NI AT WILL. CO FEELNG LIKE NEEDS TO VOID. CO PAIN AT SURG SITE AND RATES PAIN A 9 ON SCALE OF 0-10. STATES THAT SHE IS PASSING GAS AND STATES IS "STARVING" CLEAR LIQ DIET SERVED. AMBULATORY TO BATHROOM- UNABLE TO VOID AT THIS TIME. RETURNS TO BED.
--- NOTE | 2018-11-01 09:16 | NUR ---
PT CALLS SHEET METAL WORKER HELPER LIGHT. C/O PAIN. THIS NURSE TO ROOM. PT TEARFUL. PT STATES HAS NOT VOIDED YET. PT OOB AND AMB WITH STEADY, BUT SLOW GAIT TO BR. VOIDS 100 ML OF CLOUDY, YELLOW URINE. PERICARE DONE PER PT. PINK VAGINAL DISCHARGE NOTED ON WASHCLOTH. PERIPAD IN PLACE. PT AMBULATES BACK TO BED. PT STATES "IT'S A LITTLE BETTER". SR UP X2. CALL LIGHT IN REACH.
--- NOTE | 2018-11-01 09:25 | NUR ---
ENTERED ROOM TO REPLACE SCD'S. PT CO PAIN AT INCISION. VIEWED INCISION- APPEARANCE WNL- NO DRAINAGE-NO REDNESS. JOSE REPLACED. ICE CAP TO SITE.
--- NOTE | 2018-11-01 09:31 | NUR ---
DR WYMAN CALLS UNIT. REPORT GIVEN OF PT CO TERIBLE PAIN- RATES PAIN A 9 ON SCALE OF 0-10. ORDER RECEIVED TO GIVE ANOTHER DOSE OF PERCOCET NOW.
--- NOTE | 2018-11-01 09:41 | NUR ---
ENTERED ROOM. CO PAIN AT AN 8 ON SCALE OF 0-10. STATES PAIN IS AT INCISION AND ABD. CO BEING HUNGRY AND EQUESTING FOOD.
--- NOTE | 2018-11-01 11:20 | NUR ---
UP TO BATHROOM TO VOID- 250CC URINE IN CONTAINER.
--- NOTE | 2018-11-01 11:33 | NUR ---
DR WYMAN HERE TO SEE PT. DISCUSSES PAIN MANAGEMENT - DISCUSS DIET WITH PT. STATES HE WILL PLACE ORDERS FOR PAIN MANAGEMENT.
[2018-11-01 12:15] VITALS: BP 102/51
--- NOTE | 2018-11-01 13:06 | NUR ---
states pain is better- rates pain a 4-5 on scale of 0-10. states needs to get up to bathroom. states will shower now also.
--- NOTE | 2018-11-01 13:32 | NUR ---
up to bathroom- voided 400cc. into shower- linens changed. instructed on care of incision. returns to bed- tolerated well.
--- NOTE | 2018-11-01 13:44 | NUR ---
states is ready for nap. denies needs.
--- NOTE | 2018-11-01 14:00 | NUR ---
DR WYMAN NOTIFIED PT PAIN IMPROVED, SHOWERED AND INCISION CLEAR. ORDER RECEIVED FOR REGULAR DIET AND ABDOMINAL BINDER IF PT DESIRES.
--- NOTE | 2018-11-01 16:06 | NUR ---
pt states has been sleeping but up to bathroom and voided 800cc in container. requesting pain medication- rates pain an 8 on scale of 0-10. med given.
[2018-11-01 17:15] VITALS: BP 110/51
--- NOTE | 2018-11-01 17:18 | NUR ---
ate 100% of reg diet. co gas at this time. co pain with gas.
--- NOTE | 2018-11-01 17:29 | NUR ---
AMBULATORY AROUND UNIT- TOLERATED WELL.
--- NOTE | 2018-11-01 17:52 | NUR ---
resting in bed. watching tv. abd incision remains clean and dry- appearance wnl.
[2018-11-01 19:41] VITALS: BP 131/61
--- NOTE | 2018-11-01 19:41 | NUR ---
SHIFT ASSESSMENT COMPLETED PER FLOWSHEET. VSS. C/O PAIN 12/08, ABD AND INCISIONAL, CONSTANT BURNING AND STINGING AND PRESSURE. REPORTS THAT FOLLOWING EATING EVENING MEAL SHE HASN'T BEEN ABLE TO PASS FLATUS AND FEELS THAT PRESSURE HAS INCREASED SINCE. ORDERS REC'D FOR SIMETHCONE. ENCOURAGED TO AMBULATE. STATES THAT SHE IS HURTING TO BAD TO AMBULATE AT THIS TIME. REFUSES SCD'S. PERIPAD CURRENTLY COVERING LOWER TRANSVERSE ABD INCISION, VERBALIZES UNDERSTANDING OF INCISIONAL CARE. INCISION WILL APPROXIMATED, GLUE INTACT. NO DRAINAGE OF S/S OF INFECTION NOTED. CLEAN PERIPAD PLACED. ICE WATER PROVIDED. INDEPENDENTLY REPOSITIONED TO RIGHT SIDE. PILLOWS PLACED BEHIND BACK FOR COMFORT AND SUPPORT. 4 MG HYDROMORPHONE AND 0.5 MG KLOPIN GIVEN PER ORDER AND PT REQUEST ALONG WITH SCHEDULED TORADOL. BED IN LOW POSITION WITH UPPER SIDE RAILS RAISED X2. CALL LIGHT AND PHONE WITHIN REACH. WILL CONTINUE TO MONITOR.
--- NOTE | 2018-11-01 20:24 | NUR ---
RESTING WITH EYES CLOSED IN SEMI-FOWLERS POSITION UPON ENTRY TO ROOM, AROUSES TO VOICE. PAIN REASSESSMENT 08/08, STATES THAT PAIN IS "MUCH BETTER, THE DILUADID JUST KNOCKS ME OUT." LT HAND PIV FLUSHED WITH 10 MLS NS, NO S/S OF INFILTRATION NOTED, TOLERATED WELL. 2 GM IVP ANCEF HUNG PER ORDER. 160 MG PO SIMETHICONE GIVEN PER ORDER AND PT REQUEST, EDUCATED ON MED, VERBALIZES UNDERSTANDING AND DENIES QUESTIONS. ENCOURAGED TO EMPTY BLADDER, STATES THAT SHE DOESN'T NEED TO VOID AT THIS TIME, EDUCATED ON IMPORTANCE OF VOIDING FREQUENTLY TO PREVENT OVERFILLING OF BLADDER AND FOR PAIN CONTROLL, VERBALIZES UNDERSTANDING AND DENIES NEED TO VOID. BED IN LOW POSITION WITH UPPER SIDE RAILS RAISED X2. CALL LIGHT AND PHONE WITHIN REACH. CONTINUES TO REFUSE SCD'S. WILL CONTINUE TO MONITOR.
--- NOTE | 2018-11-01 21:03 | NUR ---
ANCEF INFUSION COMPLETED. LT HAND PIV FLUSHED AND SL. DENIES NEEDS AT THIS TIME. STATES THAT SHE IS GOING TO REST WHILE PAIN LEVEL IS DONE.
--- NOTE | 2018-11-01 21:16 | NUR ---
CALLS VIA CALL LIGHT. PT EXPRESSES CONCERN THAT HYDROMORPHONE MAKES HER DROWSY AND IS REQUESTING ADJUSTMENT OF PAIN REGIMEN. EXPRESSES CONCERN THAT WHEN SHE D/C'S HOME SHE WILL HAVE TO CARE FOR HER 5 Y/O STARTING MONDAY AND DOESN'T WANT PAIN MEDICATION THAT MAKES HER SO DROWSY. WILL DISCUSS WITH DR. WYMAN. ALSO CONTINUES TO C/O "GAS PAIN." ENCOURAGED TO AMBULATE ONCE AGAIN, STATES THAT SHE DOESN'T WANT TO CURRENTLY "I WALKED 3 TIMES TODAY ALREADY." EDUCATED ABOUT POSSILBE POST OP COMPLICATIONS AND THAT AMBULATION WILL ALSO LIKELY HELP RELIEVE "GAS PAIN." STATES "I FEEL TOO SLEEPY RIGHT NOW." RN OFFERED TO AMBULATE WITH PT, CONTINUES TO REFUSE. WILL REPORT TO DR. WYMAN.
--- NOTE | 2018-11-01 21:44 | NUR ---
SPOKE WITH DR. WYMAN REGARDING PT CONCERNS ABOUT PAIN MEDICATION AND AMBULATING. ORDERS REC'D TO 1/2 CURRENT PAIN MEDICATIONS AND IF PT UNWILLING TO AMBULUATE BEGIN 40 MG SUBQ LOVENOX DAILY. WILL SPEAK WITH PT REGARDING CHANGES TO PLAN OF CARE.
--- NOTE | 2018-11-01 22:16 | NUR ---
SPOKE WITH REGARDING CHANGES IN CURRENT PAIN MED REGIMEN AND ORDERS FOR LOVENOX IF NOT AMBULATING MORE. PT REFUSES LOVENOX, STATES THAT SHE WILL AMBULATE ON UNIT.
--- NOTE | 2018-11-01 22:35 | NUR ---
UP TO VOID AND AMBULATED ON UNIT X3 ROUNDS WITH STANDBY ASSIST OF Kailyn ALBERT RN. STEADY GAIT NOTED.
--- NOTE | 2018-11-02 00:49 | NUR ---
LAYING ON LEFT SIDE RESTING WITH EYES CLOSED. RESPIRATIONS REGULAR AND UNLABORED, NO S/S OF DISTRESS NOTED. BED IN LOW POSITION WITH UPPER SIDE RAILS RAISED X2. CALL LIGHT AND PHONE WITHIN REACH. WILL CONTINUE TO MONITOR AND ASSIST PRN.
[2018-11-02 01:20] VITALS: BP 139/63
--- NOTE | 2018-11-02 01:20 | NUR ---
C/O PAIN 11/07, ABD PRESSURE AND SORENESS WITH INCISIONAL BURNING AND STINGING. HYDROMORPHONE 4 MG PO GIVEN PER ORDER AND PT REQUEST. TORADOL AND NEUROTIN GIVEN PER ORDER. UP TO BATHROOM WITH STANDBY ASSIST, PASSING FLATUS WHILE AMBULATING TO BATHROOM. REPORTS DECREASE IN PAIN WITH PASSING FLATUS. NONSKID SOCKS PROVIDED. AMBULATORY ON UNIT X2 WITH STANDBY ASSIST, STEADY GAIT NOTED. BACK TO ROOM. FAN AND ICE WATER PROVIDED PER REQUEST. DENIES ADDITIONAL NEEDS. CONTINUES TO REFUSE SCD'S. BED IN LOW POSITION WITH UPPER SIDE RAILS RAISED X2. CALL LIGHT AND PHONE WITHIN REACH. WILL CONT TO MONITOR.
--- NOTE | 2018-11-02 02:08 | NUR ---
PT IN SEMI FOWLERS POSITION WATCHING TV. REQUEST ALBUTEROL INHALER SHE USES AT HOME (1-2 PUFFS Q 4 HR PRN SOB). C/O TIGHTNESS TO UPPER CHEST, "I FEEL LIKE I NEED TO COUGH BUT CAN'T DO IT WELL ENOUGH TO CLEAR THE STUFF." BREATH SOUNDS CLEAR AND EQUAL BILATERALLY. INCENTIVE SPIROMETER DONE WITH RN WITH GOOD EFFORT. DEEP BREATHING DONE WELL WITH GOOD EFFORT, WEAK COUGH EFFORT. REPORTS THAT COUGHING HURTS TO MUCH.
--- NOTE | 2018-11-02 02:22 | NUR ---
DR. WYMAN NOTIFIED OF PT COMPLAINTS AND REQUEST FOR INHALER. ORDERS REC'D.
--- NOTE | 2018-11-02 02:32 | NUR ---
SPOKE WITH RT MIKA REGARDING ALBUTEROL HFA INHALER, PER MIKA, MOLD CLOSER HELPER WOULD HAVE TO GET MED AND BRING TO UNIT.
--- NOTE | 2018-11-02 02:34 | NUR ---
MELINDA WASHINGTON, POULTRY INSPECTOR NOTIFIED OF NEED FOR ALBUTEROL HFA. STATES THAT SHE WILL BRING TO UNIT FOLLOWING GETTING MEDS FOR ER. PT NOTIFIED OF ORDERS REC'D AND DELAY FOR MED GETTING TO UNIT.
--- NOTE | 2018-11-02 03:26 | NUR ---
MELINDA WASHINGTON, TECHNOLOGIST INFECTIOUS DISEASE ON UNIT WITH ORDERED ALBUTEROL HFA INHALER. RN TO BEDSIDE, PT RESTING WITH EYES CLOSED IN SEMI-FOWLERS POSITION, DOES NOT ROUSE TO DOOR OPENING. RESPIRATIONS REGULAR AND UNLABORED, NO S/S OF DISTRESS NOTED. WILL CONTINUE TO MONITOR.
--- NOTE | 2018-11-02 03:39 | NUR ---
CALLS VIA CL. REQUESTS INHALER, PROVIDED PER ORDER AND PT REQUEST. PT USED X2. REQUESTS SANDWICH TRAY AND PROVIDED PER REQUEST. DENIES ADDITIONAL NEEDS. BED IN LOW POSITION WITH UPPER SIDE RAILS RAISED X2. CALL LIGHT AND PHONE WITHIN REACH. WILL CONTINUE TO MONITOR AND ASSIST PRN.
--- NOTE | 2018-11-02 04:26 | NUR ---
LT HAND PIV FLUSHED WITH 10 MLS NS, NO S/S OF INFILTRATION NOTED. FLUSHES WITHOUT DIFFICULTY. 2 GM ANCEF HUNG PER ORDER. REQUESTS MELINDA DC, DESIGNATED BROKER NOTIFIED AND WILL COME TO UNIT TO OVERRIDE. PT EXPLAINED DELAY AND VERBALIZES UNDERSTANDING.
[2018-11-02 05:00] VITALS: BP 127/61
--- NOTE | 2018-11-02 05:00 | NUR ---
C/O PAIN 7/10 ABD PRESSURE AND INCISIONAL BURNING AND STINGING. 4 MG HYDROMORPHONE GIVEN PER ORDER AND PT REQUEST. SIMETHICONE GIVEN PER ORDER AND PT REQUEST. ANCEF INFUSION COMPLETED. LT HAND PIV SL AND FLUSHED. VSS. DENIES ADDITIONAL NEEDS, BED IN LOW POSITION WITH UPPER SIDE RAILS RAISED X2. CALL LIGHT AND PHONE WITHIN REACH. WILL CONTINUE TO MONITOR.
--- NOTE | 2018-11-02 05:58 | NUR ---
PAIN REASSESSMENT COMPLETED. RESTING QUIETLY WITH EYES CLOSED. RESPIRATION REGULAR AND UNLABORED, NO S/S OF DISTRESS NOTED.
[2018-11-02 07:33] VITALS: BP 129/59
--- NOTE | 2018-11-02 08:00 | NUR ---
abd david placed. pt states "oh my that makes it feel so much better".
--- NOTE | 2018-11-02 08:55 | NUR ---
dr. jones on unit, report given to md that pt has requested percocet instead of dilaudid.
--- NOTE | 2018-11-02 09:00 | NUR ---
md to room to speak with pt.
--- NOTE | 2018-11-02 09:14 | OP ---
PATIENT NAME: RAY HERRING MEDICAL RECORD: [id number] :88 LOCATION:[id number] ADMISSION DATE:10/31/18 SURGEON: WINSTON WYMAN MD DATE OF OPERATION: 10/31/2018 PREOPERATIVE DIAGNOSES: 1. Morbid, morbid obesity (greater than 60 BMI). 2. DUB. 3. Pelvic pain. POSTOPERATIVE DIAGNOSES: 1. Morbid, morbid obesity (greater than 60 BMI). 2. DUB. 3. Pelvic pain. 4. Pelvic adhesions. PROCEDURES: 1. Exploratory laparotomy. 2. Subtotal hysterectomy. 3. Left salpingo-oophorectomy. SURGEON: Winston Wyman MD IT NETWORK ARCHITECT: Nghia Iniguez ANESTHETIC: General. FINDINGS: Dense adhesions from the umbilicus to the level of the midabdomen. Greater than 7 cm of subcutaneous tissue from skin to fascia. Uterus was unremarkable as well as left ovary and tube. Right ovary was unremarkable. SPECIMENS REMOVED: 1. Uterus without cervix. 2. Left ovary and tube. SPECIMEN DISPOSITION: All specimens to pathology. ESTIMATED BLOOD LOSS: Less than or equal to 300 cc. FLUIDS: 1400 cc of lactated Ringer's. URINE OUTPUT: 500 cc of clear urine. COMPLICATION: None. DRAIN: Drake to gravity. INDICATION: The patient is a 28-year-old parous female with history of dysfunctional uterine bleeding and pelvic pain. The patient desires definitive treatment. The patient has consented for attempted laparoscopic subtotal hysterectomy, possible exploratory laparotomy, and left salpingo-oophorectomy. DESCRIPTION OF PROCEDURE: After informed consent was assured, the patient was taken to the operating room, where anesthetic was obtained. The patient was prepped and draped after securing the pannus above the operative field. An OPERATIVE REPORT [id number] RAY HERRING incision was made at the umbilicus to accommodate Frandy trocar. This incision was taken down to the level of the fascia and previous mesh placement. This was abandoned when it was apparent immediately upon entering the abdomen that dense adhesions were present. The laparoscopic approach was abandoned and attention was directed at the previous lower abdominal incision. A skin incision was made over this incision and carried down to the underlying layer of the fascia, which was opened in the midline and extended laterally. The rectus bellies were dissected free superiorly and inferiorly. Peritoneum was entered and peritoneal opening was extended. Attempts were made to place an Khari retractor, but due to the patient's morbid obesity, it was unable to adequately provide visualization. A Andrés retractor was now inserted. The bowel was packed free of the lower pelvis and an upper blade was placed. Using a broad large Marga retractor, the bladder was deflected inferiorly. Uterus was grasped with Juan clamps on the cornual regions. The uterus was elevated and the round ligament was grasped and elevated. The round ligament was now stick tied. The broad ligament was entered with Bovie cautery through the round ligament. The dissection was carried down to the level of the bladder and the bladder flap was developed to the midline. The bladder was pushed gently with a sponge stick below the level of the internal os. A window was developed in the broad ligament, and through this window, 2 clamps were placed. The uteroovarian ligament was now mobilized and stick tied with [id number] stitch for hemostasis. The connective tissue surrounding the right vascular bundle was dissected free and 2 clamps were applied here. This vascular bundle of the right side was mobilized with scissors and a Juan stitch was applied for hemostasis. Attention was now directed to the left side. The left round ligament was now elevated and stick tied. The broad ligament was entered through the round ligament here and the dissection was carried up inferiorly and the bladder flap was now fully developed. A window was now developed in the posterior leaf of the broad ligament and 2 clamps were placed on the infundibulopelvic ligament behind the left ovary and tube. This pedicle was developed sharply and a [id number] stitch and free tie were applied here to obtain hemostasis. Dissection continues along the sides of the uterus to free the vessels of the left side. The vessels were skeletonized and clamped with a Juan-Pardeeville clamp. The pedicle was mobilized with scissors and a Juan stitch was applied. Uterus was now removed from its attachments to the cervix. Interrupted Vicryl stitches were placed across the cervical stump. The pelvis was copiously irrigated and irrigant was removed. Slight bleeding has occurred at the edge of the peritoneum and Yessenia was placed here. After placement of the Yessenia, inspection of the operative field revealed adequate hemostasis. Mercedes retractor was removed along with all sponges and count was correct. The fascia was now closed. The inferior aspect of the fascia was opened vertically to obtain better visualization during this procedure and this was closed first. Using #0 PDS, this was closed inferiorly to the level of the previous horizontal incision. Once this was secured, the horizontal incision was closed with looped PDS. This was carried from right to left. After securing the stitch, the subcutaneous tissue was irrigated. Bleeding vessel was cauterized and the fat was closed with 2 layers of plain gut. The skin was closed with a subcuticular stitch. Attention was given to the infraumbilical incision made previously and this was closed with a subcuticular stitch as well. Dermabond was applied to all incisions. The sponge, lap, and needle counts were correct times 3 at the close of this procedure. The patient went to the recovery room in stable condition. TRANSINT:[id number] Voice Confirmation ID: [id number] DOCUMENT ID: [id number] OPERATIVE REPORT [id number] RAY HERRING,WINSTON Palma MD at 0914 CC: [id number] DICTATION DATE: 10/31/18 1320 CUSTOMER SUCCESS INTERN: 10/31/18 1412 ADM IN [facility] [address] [place] [address]
--- NOTE | 2018-11-02 10:00 | NUR ---
iv dc'd with cath intact. pt dressing for discharge. pt denies all other needs at this time. see emar for all meds adm by this rn. srup x2, call light and phone within reach.
[2018-11-02] MEDS ORDERED: DILAUDID2 MG PO (10:31)
[2018-11-02] MEDS ORDERED: MOBIC7.5 MG PO (10:32)
[2018-11-02] MEDS ORDERED: NEURONTIN 300300 MG PO (10:33)
--- NOTE | 2018-11-02 11:00 | NUR ---
discharge instructions explained to pt, pt denies questions, copies provided. pt off unit in stable condition by wheelchair to private vehicle.
== END 2018-11-02 11:00 | disposition home or self-care (01) | DRG 742 ==
LOC: D.OPS 07:20 → D.LD 14:15 → D.OPS 14:16 → D.LD 14:17
PROVIDERS: ADMIT Obstetrics & Gynecology; ATTEND Obstetrics & Gynecology
PROC: 0UT60ZZ Resection of Left Fallopian Tube, Open Approach (ICD-10-PCS; 2018-10-31)
PROC: 0UT90ZZ Resection of Uterus, Open Approach (ICD-10-PCS; principal; 2018-10-31 08:30)
PROC: 0UT10ZZ Resection of Left Ovary, Open Approach (ICD-10-PCS; 2018-10-31 08:30)
DX: N93.8 Other specified abnormal uterine and vaginal bleeding (principal); Z68.44 Body mass index [BMI] 60.0-69.9, adult; R10.2 Pelvic and perineal pain; E66.01 Morbid (severe) obesity due to excess calories

== ENCOUNTER 2019-02-23 10:03 | Emergency (ER) | payer MEDICAID ==
[~2019-02-23] VITALS: Ht 170.2 cm; Wt 177.3 kg
[~2019-02-23 10:03] MED LIST changes: +DILAUDID2 MG PO; +MOBIC7.5 MG PO; +NEURONTIN 300300 MG PO
[2019-02-23 10:31] VITALS: Ht 170.2 cm; Wt 177.3 kg
[2019-02-23 10:55] LABS: HEMATOCRIT 43.2 % (36.0-48.0); HEMOGLOBIN 14.5 g/dL (12-16); LYMPHOCYTES 26.5 % (15-50); MCH 29.5 pg (26.0-34.0); MCHC 33.6 g/dL (31.0-37.0); MEAN PLATELET VOLUME 9.4 fL (7.4-10.4); NEUTROPHILS 69.8 % (40-80); PLATELET COUNT 309 10x3/uL (130-400); RBC 4.91 10x6/uL (4.00-5.40); RDW 12.9 % (11.5-14.5); WBC 14.9 10x3/uL (4.8-10.8)
[2019-02-23 11:14] LABS: CALC OSMOLALITY 273 mosm/kg (275-300); CALCIUM 8.8 mg/dL (8.5-10.1); CARBON DIOXIDE 25.8 mmol/L (21.0-32.0); CHLORIDE - SERUM 102 mmol/L (98-107); CREATININE - SERUM 0.7 mg/dL (0.6-1.3); GLUCOSE 108 mg/dL (74-106); POTASSIUM - SERUM 3.8 mmol/L (3.5-5.1); SODIUM 137 mmol/L (136-145); UREA NITROGEN 9 mg/dL (7-18); eGFR NON AFRICAN AMERICAN > 90 mL/min (90-120)
[2019-02-23 11:17] LABS: ALBUMIN 3.3 g/dL (3.4-5.0); ALKALINE PHOSPHATASE 88 U/L (46-116); ALT (SGPT) 45 U/L (10-68); BILIRUBIN - TOTAL 0.41 mg/dL (0.2-1.3); CREATINE KINASE 80 UL (21-215); PRO BNP 139 pg/mL (0-125)
[2019-02-23] MEDS ORDERED: VIBRAMYCIN 100100 MG PO (11:55)
[2019-02-23] MEDS ORDERED: PREDNISONE20 MG PO (11:55)
[2019-02-23 12:13] VITALS: BP 132/74
[2019-04-05] MEDS ORDERED: ALBUTEROL SULF8.5 GM INH (09:35)
== END 2019-02-23 12:14 | disposition home or self-care (01) ==
LOC: D.ER 10:03
PROVIDERS: Family Medicine
DX: J20.9 Acute bronchitis, unspecified (principal)

== ENCOUNTER 2019-03-29 17:41 | Emergency (ER) | payer MEDICAID ==
[~2019-03-29] VITALS: Ht 170.2 cm; Wt 185.1 kg
[2019-03-29 18:00] VITALS: Ht 170.2 cm; Wt 185.1 kg
[2019-03-29] MEDS ORDERED: TYLENOL #4 W/CO1 TAB (18:01)
[2019-03-29 18:35] LABS: BASOPHILS 0.3 % (0-2); EOSINOPHILS 0.5 % (0-7); HEMATOCRIT 40.3 % (36.0-48.0); HEMOGLOBIN 13.5 g/dL (12-16); IMMATURE GRANULOCYTES 0.3 % (0-5); LYMPHOCYTES 32.9 % (15-50); MCH 30.9 pg (26.0-34.0); MCHC 33.5 g/dL (31.0-37.0); MCV 92.2 fL (80.0-100.0); MEAN PLATELET VOLUME 10.3 fL (7.4-10.4); MONOCYTES 7.4 % (2-11); NEUTROPHILS 58.6 % (40-80); PLATELET COUNT 301 10x3/uL (130-400); RBC 4.37 10x6/uL (4.00-5.40); RDW 13.5 % (11.5-14.5); WBC 11.9 10x3/uL (4.8-10.8)
[2019-03-29 18:50] LABS: APPEARANCE CLEAR (CLEAR); COLOR YELLOW (YELLOW)
[2019-03-29 18:51] LABS: BILIRUBIN NEGATIVE (NEGATIVE); GLUCOSE NEGATIVE (NEGATIVE); KETONE NEGATIVE (NEGATIVE); NITRITE NEGATIVE (NEGATIVE); PROTEIN NEGATIVE (NEGATIVE); UROBILINOGEN NORMAL (NORMAL)
[2019-03-29 18:52] LABS: CALC OSMOLALITY 278 mosm/kg (275-300); CALCIUM 9.2 mg/dL (8.5-10.1); CARBON DIOXIDE 26.2 mmol/L (21.0-32.0); CHLORIDE - SERUM 104 mmol/L (98-107); CREATININE - SERUM 0.8 mg/dL (0.6-1.3); GLUCOSE 113 mg/dL (74-106); POTASSIUM - SERUM 4.1 mmol/L (3.5-5.1); SODIUM 140 mmol/L (136-145); UREA NITROGEN 10 mg/dL (7-18); eGFR NON AFRICAN AMERICAN 89 mL/min (90-120)
[2019-03-29 19:01] LABS: ALBUMIN 3.4 g/dL (3.4-5.0); ALKALINE PHOSPHATASE 87 U/L (46-116); ALT (SGPT) 34 U/L (10-68); AMYLASE - SERUM 21 U/L (25-115); BILIRUBIN - TOTAL 0.15 mg/dL (0.2-1.3); LIPASE 118 U/L (73-393); PROTEIN - SERUM 7.3 g/dL (6.4-8.2)
[2019-03-29 19:04] LABS: TROPONIN-I < 0.017 ng/mL (0.000-0.060)
[2019-03-29] MEDS ORDERED: HYDROCODON-ACE1 EA10 PO (21:42)
[2019-03-29 22:19] VITALS: BP 165/76
[2019-04-05] MEDS ORDERED: ALBUTEROL SULF8.5 GM INH (09:35)
== END 2019-03-29 22:00 | disposition home or self-care (01) ==
LOC: D.ER 17:41
PROVIDERS: Family Medicine
DX: N83.201 Unspecified ovarian cyst, right side (principal); N80.9 Endometriosis, unspecified

== ENCOUNTER 2019-04-08 06:56 | Day surgery (SDC) | payer MEDICAID ==
[2019-04-05 10:26] LABS: CALC OSMOLALITY 273 mosm/kg (275-300); CALCIUM 8.5 mg/dL (8.5-10.1); CARBON DIOXIDE 26.7 mmol/L (21.0-32.0); CHLORIDE - SERUM 102 mmol/L (98-107); CREATININE - SERUM 0.7 mg/dL (0.6-1.3); GLUCOSE 93 mg/dL (74-106); SODIUM 137 mmol/L (136-145); UREA NITROGEN 13 mg/dL (7-18); eGFR NON AFRICAN AMERICAN > 90 mL/min (90-120)
[2019-04-05 10:35] LABS: BASOPHILS 0.4 % (0-2); EOSINOPHILS 2.4 % (0-7); HEMATOCRIT 40.4 % (36.0-48.0); HEMOGLOBIN 13.9 g/dL (12-16); IMMATURE GRANULOCYTES 0.2 % (0-5); LYMPHOCYTES 24.7 % (15-50); MCH 31.3 pg (26.0-34.0); MCHC 34.4 g/dL (31.0-37.0); MEAN PLATELET VOLUME 10.3 fL (7.4-10.4); MONOCYTES 7.5 % (2-11); NEUTROPHILS 64.8 % (40-80); PLATELET COUNT 330 10x3/uL (130-400); RBC 4.44 10x6/uL (4.00-5.40); RDW 13.5 % (11.5-14.5); WBC 12.3 10x3/uL (4.8-10.8)
[~2019-04-08] VITALS: Ht 170.2 cm; Wt 183.7 kg
--- NOTE | ~2019-04-08 | OP ---
PATIENT NAME: RAY HERRING MEDICAL RECORD: [id number] :88 LOCATION:D.OPS ADMISSION DATE: SURGEON: WINSTON WYMAN MD DATE OF OPERATION: 04/08/2019 PREOPERATIVE DIAGNOSES: 1. Pelvic pain. 2. Pelvic mass. POSTOPERATIVE DIAGNOSES: 1. Simple right ovarian cyst. 2. Severe pelvic adhesions. PROCEDURES: 1. Diagnostic laparoscopy. 2. Right cystectomy. SURGEON: Winston Wyman MD EXTRUDER OPERATOR HORIZONTAL: Serafin. ANESTHESIOLOGIST: Juan Oliveira PLASTER HELPER: Delgado Rodríguez. ANESTHESIA: General. FINDINGS: There are dense adhesions of the omentum and small bowel to the anterior abdominal wall. Right ovary with 4 cm cyst anteriorly, the medial aspect not adhesed, simple cyst containing straw-colored fluid. SPECIMEN REMOVED: Ovarian cyst wall and capsule. SPECIMEN DISPOSITION: Pathology. ESTIMATED BLOOD LOSS: Minimal. FLUIDS: 300 cc lactated Ringer's. URINE OUTPUT: 200 cc of clear urine. COMPLICATIONS: None. DRAINS: None. INDICATIONS: The patient is a 28-year-old female with previous hysterectomy with increasing pelvic pain and pressure. The patient was found to have a pelvic mass on ultrasound. The patient was consented for diagnostic laparoscopy and cystectomy. DESCRIPTION OF PROCEDURE: After informed consent was assured, the patient was taken to the operating room where anesthetic was obtained without difficulty. The patient is now prepped and draped in the usual sterile fashion. The attention was directed to the umbilicus where an incision was made and trocar inserted. Pneumoperitoneum was developed and accessory ports now placed in the OPERATIVE REPORT [id number] RAY HERRING right lower quadrant. Through this port, a blunt probe was used and the ovaries easily identified and is anterior to the bowel. Thunderbeat coagulation cutter was now inserted. The base of the cyst is identified at its attachment to the ovary. The cyst cavity was entered. This dissection was carried out until a 2 cm window was removed from the cyst and cyst wall. This was grasped with a Thunderbeat coagulation cutter and removed from the pelvis and sent to pathology. The pelvis was irrigated, irrigant removed and inspection of the operative site revealed adequate hemostasis. The camera was now placed through the right lower quadrant and looks back anteriorly and superiorly and the trocar was identified. It is well away from any vital organ and there appears to be no trauma to bowel or adjacent structures. The pneumoperitoneum was now released and the trocars were removed. The primary trocars were removed after release of the complete pneumoperitoneum. All sites closed with subcuticular stitch and Dermabond applied. Sponge, lap, needle counts were correct times 2. TRANSINT:[id number] Voice Confirmation ID: [id number] DOCUMENT ID: [id number] WINSTON WYMAN MD CC: [id number] DICTATION DATE: 04/08/19 1100 WOOD MODEL BUILDER: 04/08/19 1352 [facility] 04/08/19 [id number] [place] [address]
[~2019-04-08 06:56] MED LIST changes: +ALBUTEROL SULF8.5 GM INH; +HYDROCODON-ACE1 EA10 PO; +TYLENOL #4 W/CO1 TAB
[2019-04-08 08:02] VITALS: Ht 170.2 cm; Wt 183.7 kg
--- NOTE | 2019-04-08 11:59 | NUR ---
1159 FL DIET SERVED
--- NOTE | 2019-04-08 11:59 | NUR ---
1150 UP TO BR VOIDS QS
--- NOTE | 2019-04-08 13:10 | NUR ---
DISCHARGE INSTRUCTIONS PROVIDED, IV REMOVED WITH TIP INTACT. WHEELED OUT TO PT VEHICLE.
== END 2019-04-08 13:14 | disposition home or self-care (01) ==
LOC: D.OPS 06:56 → D.PAN 07:00 → D.OPS 09:00 → D.PAN 09:05 → D.OPS 13:14
PROVIDERS: Anesthesiology; ATTEND Obstetrics & Gynecology
DX: R10.2 Pelvic and perineal pain (principal); R19.00 Intra-abdominal and pelvic swelling, mass and lump, unspecified site; N83.291 Other ovarian cyst, right side; N73.6 Female pelvic peritoneal adhesions (postinfective); E78.5 Hyperlipidemia, unspecified; E66.01 Morbid (severe) obesity due to excess calories; Z68.41 Body mass index [BMI] 40.0-44.9, adult

== ENCOUNTER 2019-04-12 15:24 | Inpatient (IN) | payer MEDICAID ==
[~2019-04-12] VITALS: Ht 170.2 cm; Wt 181.4 kg
[2019-04-12 16:18] LABS: BASOPHILS 0.2 % (0-2); EOSINOPHILS 0.5 % (0-7); HEMATOCRIT 41.5 % (36.0-48.0); HEMOGLOBIN 13.9 g/dL (12-16); IMMATURE GRANULOCYTES 0.5 % (0-5); LYMPHOCYTES 16.5 % (15-50); MCH 30.7 pg (26.0-34.0); MCHC 33.5 g/dL (31.0-37.0); MCV 91.6 fL (80.0-100.0); MEAN PLATELET VOLUME 9.9 fL (7.4-10.4); MONOCYTES 5.6 % (2-11); NEUTROPHILS 76.7 % (40-80); PLATELET COUNT 281 10x3/uL (130-400); RBC 4.53 10x6/uL (4.00-5.40); RDW 13.5 % (11.5-14.5); WBC 19.9 10x3/uL (4.8-10.8)
[2019-04-12 16:19] LABS: CALC OSMOLALITY 265 mosm/kg (275-300); CALCIUM 9.1 mg/dL (8.5-10.1); CARBON DIOXIDE 27.1 mmol/L (21.0-32.0); CHLORIDE - SERUM 97 mmol/L (98-107); CREATININE - SERUM 0.6 mg/dL (0.6-1.3); GLUCOSE 88 mg/dL (74-106); POTASSIUM - SERUM 4.1 mmol/L (3.5-5.1); SODIUM 134 mmol/L (136-145); UREA NITROGEN 9 mg/dL (7-18); eGFR NON AFRICAN AMERICAN > 90 mL/min (90-120)
[2019-04-12 16:20] LABS: APTT 27.4 SECONDS (22.8-39.4); PROTIME 12.7 SECONDS (11.6-15.0)
[2019-04-12 16:36] LABS: ALBUMIN 3.4 g/dL (3.4-5.0); ALKALINE PHOSPHATASE 82 U/L (46-116); ALT (SGPT) 26 U/L (10-68); BILIRUBIN - TOTAL 0.36 mg/dL (0.2-1.3); CKMB 0.3 U/L (0.0-3.6); CREATINE KINASE 51 UL (21-215); PROTEIN - SERUM 7.5 g/dL (6.4-8.2)
[2019-04-12 16:41] LABS: APPEARANCE CLEAR (CLEAR); BILIRUBIN NEGATIVE (NEGATIVE); COLOR YELLOW (YELLOW); GLUCOSE NEGATIVE (NEGATIVE); KETONE NEGATIVE (NEGATIVE); NITRITE NEGATIVE (NEGATIVE); PROTEIN NEGATIVE (NEGATIVE); UROBILINOGEN NORMAL (NORMAL)
[2019-04-12 19:00] VITALS: BP 132/72
--- NOTE | 2019-04-12 19:11 | NUR ---
BS REPORT TO DINESH BUNCH
--- NOTE | 2019-04-12 19:16 | NUR ---
PATIENT TO CT VIA STRETCHER PER OVIDIO, PT STABLE.
--- NOTE | 2019-04-12 19:25 | NUR ---
BACK FROM CT, CALL LIGHT WITHIN REACH
[2019-04-12 20:09] VITALS: BP 106/54
[2019-04-12 21:00] VITALS: BP 177/61
[2019-04-12 22:45] VITALS: BP 118/65
--- NOTE | 2019-04-12 22:46 | NUR ---
PT ADMITTED FROM THE ER WITH FEVER, EXP LAP ON 04/08/19 WITH ABD PAIN. SHE STATES SHE HAS SOME CYST REMOVED FROM HER ONE OVARY. PT STATES SHE HAS SOME RESP. PROBLEMS WITH DYSPNEA AND COUGHING. HER SPUTUM IS THICK AND GREEN TINGED. PT IS NOT ON O2 AT THIS TIME. PT THREE INCISION SITES WERE VIEWED. THE ON IN THE UMBILICUS LOOKS GOOD WITH NO DRAINAGE. THE SITES ON EITHER SIDE OF HER ABD. LOOK SLIGHTLY PINK WITH NO DRAINAGE. THE TWO ABD SITED ARE UNDER FOLDS OF SKIN. SHE HAS AN IV SITED IN THE LEFT AC. SHE STATES IT TOOK 4 STICKS TO GET THE IV SHE HAS. SHE HAS 0.9% NS INFUSING AT 150ML/HR. SHE HAS IV ANTIBIOTICS ORDERED. PT C/O OF PAIN AT A 01/08 AFTER RECEIVING A TOTAL OF 16 MG OF MORPHINE IN THE ER. A CBC WAS ORDERED FOR TOMORROW MORNING. AT TIME OF ADMISSION HER WBC IS 19.9 PT STATES WEIGHT IS 400 LBS. PT/INR WNL. PT IS A SMOKER. SHE ADMITS TO 1/2 PPD. INFORMATION OFFERED ABOUT QUITING SMOKING. PT HAS A DOPPLER STUDY OF LOWER EXTREMITIES WHICH WAS NEGATIVE FOR DVT. SHE HAS AN ORDER FOR A CHEST CT BUT PT IS ALLERGIC TO THE CONTRAST DYE. SHE WILL BE PREMEDICATED BEFORE SCAN TOMORROW. PT IS ON A CLEAR LIQUID DIET UNTIL SEES PT.
[2019-04-12] MEDS ORDERED: PERCOCET 5-3251 TAB PO (22:57)
[2019-04-12] MEDS ORDERED: NEURONTIN 300300 MG PO (22:58)
[2019-04-12] MEDS ORDERED: MOBIC7.5 MG PO (22:59)
[2019-04-12] MEDS ORDERED: KLONOPIN0.5 MG PO (23:02)
[2019-04-12 23:22] VITALS: BP 118/64; BMI 62.8
--- NOTE | 2019-04-13 00:30 | NUR ---
WENT INTO PT ROOM TO APPLY ALLERGY BAND. SHE AND HER ARE SLEEPING SOUNDLY.
--- NOTE | 2019-04-13 00:40 | NUR ---
DILAUDID COACH WIRER PUMP INITIATED PER ORDERS
--- NOTE | 2019-04-13 02:00 | NUR ---
PT IS COUGHING. SHE HAS THICK CLEAR LOOKING SPUTUM NOW. SHE IS SLEEPING ON AND OFF. IS SLEEPING. IV FLUIDS CONT. tEMP IS 98.8. PT STATES SHE CAN FEEL HER TEMP COMNG UP.
--- NOTE | 2019-04-13 03:05 | NUR ---
PT COUGHING AGAIN. RN GAVE HER AN INCINTIVE SPIROMITER TO USE. I EXPLAINED HOW TO MAKE THIS WORK. I TOLD HER THIS WOULD MAKE HER COUGH BUT THE SPUTUM COULD BE COUGHED UP.
--- NOTE | 2019-04-13 04:00 | NUR ---
PT CALLED FOR A GLASS OF WATER. THIS WAS SERVED TO HER. SHE ALSO STATES THAT HER DEVELOPER ADVISOR SYRINGE HASN'T MOVED ANY SINCE GETTING IT HOOKED UP. I CHECKED THE PUMP, SYRNIGE, AND ASSURED HER IT WAS WORKING CORRECTLY.
--- NOTE | 2019-04-13 04:30 | NUR ---
CALLED CT FOR THE PROTOCOL FOR WHAT TO GIVE BEFORE CT WHEN PT ALLERGIC TO THE DYE. THIS WAS SUPPOSED TO BE FAXED EARLIER, BUT WASN'T. I CALLED X2 TO ASK IT TO BE REFAXED BUT I DID NOT GET AN ANSWER UNTIL 419. ORDERS HAVE BEEN WRITTEN AND THE FIRST FRONT VENTILATOR HAS BEEN NOTIFIED THAT SHE WILL NEED TO BRING THE MEDS TO US.
--- NOTE | 2019-04-13 05:00 | NUR ---
IV ANTIBIOTIC HUNG. TEMP WAS 98.8. PT IS SITTING UP IN BED NOW. SHE REQUESTED AND WAS SERVED WATER. STATES HER THROAT HURTS.
--- NOTE | 2019-04-13 06:06 | NUR ---
PT IS QUIET FOR NOW. NO COUGHING THE LAST SEVERAL MINUTES. DOING WELL AT THIS TIME.
--- NOTE | 2019-04-13 06:30 | NUR ---
AT THE DESK AT THIS TIME. REPORT OF CT PROTOCOL GIVEN TO AT THIS TIME. MD ASKED TO VERIFY THIS WITH RADIOLOLGY. RADIOLOLOGY CALLED AND IT WAS VERIFIED THAT THE PATIENT WOULD NOT BE ABLE TO HAVE THE SCAN BEFORE 6 P.M. TONIGHT SINCE FIRST DOSE OF PREDNISONE WAS GIVEN AT 0500. JAMES IN RADIOLOGY STATED TO SEE IF A DIMER COULD BE DRAWN INSTEAD OF THE CT. IF THE D-DIMER CAOULD NOT BE DRAWN THEN THE CT WOULD BE DONE ABOUT 6 P.M. Reinier SUN RN
--- NOTE | 2019-04-13 06:50 | NUR ---
BACK TO WOMEN'S DESK AND STATED THAT HE WOULD ORDER A D-DIMER BUT HE WANTED THE CT DONE. STATES TO PLACE SCDS ON PATIENT AT THIS TIME. Reinier SUN RN
[2019-04-13 07:17] LABS: HEMATOCRIT 35.3 % (36.0-48.0); HEMOGLOBIN 11.4 g/dL (12-16); MCH 30.2 pg (26.0-34.0); MCHC 32.3 g/dL (31.0-37.0); MCV 93.6 fL (80.0-100.0); MEAN PLATELET VOLUME 9.8 fL (7.4-10.4); PLATELET COUNT 227 10x3/uL (130-400); RBC 3.77 10x6/uL (4.00-5.40); RDW 13.9 % (11.5-14.5); WBC 21.7 10x3/uL (4.8-10.8)
--- NOTE | 2019-04-13 07:18 | NUR ---
RECEIVED SHIFT REPORT FROM LUCIANO DILL RN, INFORMED PT THAT I WILL BE BACK SHORTLY TO DO ASSESSMENT, PT VERBALIZES UNDERSTANDING, BREAKFAST TRAY SERVED, PT DENIES FURTHER NEEDS
--- NOTE | 2019-04-13 07:30 | NUR ---
DR MANDUJANO ON UNIT, VERBAL ORDERS RCEIVED TO CHANGE DIET TO REGULAR DIET, AND NOTIFY HIM IF TEMP GREATER THAN 100.5
[2019-04-13 07:40] LABS: EOSINOPHILS 2 % (0-7); LYMPHOCYTES 20 % (15-50); MONOCYTES 3 % (2-11); NEUTROPHILS 72 % (40-80); PLATELET ESTIMATE NORMAL
[2019-04-13 08:15] VITALS: BP 87/65
--- NOTE | 2019-04-13 08:15 | NUR ---
ASSESSMENT PER FLOW SHEET, VS OBTAINED, IV IN LEFT AC INTACT WITH NO REDNESS OR EDEMA INFUSING VIA PUMP LR AT 125 ML/HR, DILAUDID FIELD SOFTWARE ENGINEER TO DELIVER 0.2MG/1OMINS, PT RATES ABD PAIN 10/08, PT INST ON AND VERBALIZES UNDERSTANDING OF FIELD SOFTWARE ENGINEER, PT PUSHES BUTTON AT THIS TIME, 1 UMB AND 2 LOWER LAP INC WITH DERMABOND CDI WITH NO DRAINAGE NOTED, PT REPORTS FLATUS, BM, AND VOIDING WITH NO DIFFICULTY, PT INST ON AND DEMONSTRATED I.S. WITH GOOD EFFORT, PT INST ON AND PROVIDED PILLOW TO SPLINT ABD WHEN COUGHING, SCD'S ON AND WORKING PROPERLY, PT REQUESTED AND SERVED FRESH H20, AND FAN TO CIRCULATE AIR, PT INFORMED THAT SHE MAY AMB AROUND UNIT, BUT WAS NOT ALLOWED TO GO OUTSIDE TO SMOKE, PT VERBALIZES UNDERSTANDING, DENIES FURTHER NEEDS AT THIS TIME, BED IN LOW POSITION, SIDE RAILS X 2, CALL LIGHT IN REACH
--- NOTE | 2019-04-13 09:05 | NUR ---
DAGO FROM IMAGING CALLED REGARDING CT, CONTINUE ORDERS OF PREMEDICATION FOR CT SCAN, CT WILL BE DONE AT 1800
--- NOTE | 2019-04-13 09:23 | NUR ---
PT LOCKER ROOM ATTENDANT LIGHT, SCD'S DISCONNECTED, PT UP TO BR, GAIT STEADY, VOIDED WITH NO DIFFICULTY, PT BACK TO BED, SCD'S RECONNECTED AND WORKING PROPERLY, PT DENIES FURTHER NEEDS, BED IN LOW POSITION, SIDE RAILS X 2, CALL LIGHT IN REACH
--- NOTE | 2019-04-13 10:02 | NUR ---
DR MANDUJANO PAGED
--- NOTE | 2019-04-13 10:03 | NUR ---
DR MANDUJANO CALLS UNIT, REPORT TO VERIFY ORDERS FOR RESP CONS, ORDERS RECEIVED FOR PULMONOLOGY CONS AND UPDRAFTS Q4-6HPRN, ORDERS READ BACK AND VERIFIED
--- NOTE | 2019-04-13 10:06 | NUR ---
DR VINSON, CAMP TENDER PAGED
--- NOTE | 2019-04-13 10:10 | NUR ---
DR VINSON CALLS UNIT, ORDERS RECEIVED FOR DUONEB QID AND ALBUTEROL 2.5MG Q2HPRN, ORDERS READ BACK AND VERIFIED
--- NOTE | 2019-04-13 10:39 | NUR ---
NEW VIAL OF DILAUDID TO LOT PORTER PUMP PER MD ORDERS, SEE EMAR, PT DENIES NEEDS AT THIS TIME, PT'S SON AND S/O AT BEDSIDE
--- NOTE | 2019-04-13 12:22 | NUR ---
SHIFT REPORT TO RAJ MCLAUGHLIN RN
--- NOTE | 2019-04-13 12:23 | NUR ---
SHIFT REPORT TO JOSEPH JAY RN
--- NOTE | 2019-04-13 12:30 | NUR ---
ASSUMED CARE OF THIS PATIENT AT THIS TIME. REPORT RECIEVED. INFORMED PT ON 02 AT 2 LITERS AND TO MAINTAIN O2 SATS >95. PT TO RECEIVE CONTRAST ALLERGY PROTOCOL PRE-OP MEDS AT [address] AT 1800 THIS PM. IV NS INFUSING IN RIGHT AC, RUBBERIZING MECHANIC CONTROLLER BEEPING, PER REPORT NEEDS RUBBERIZING MECHANIC TUBING CHANGE WHICH WAS DONE WITHOUT DIFFICULTY. AMBULATED TO 1274 WITHOUT DIFFICULTY. UP AD TOR TO VOID. ORIENTED TO NEW ROOM. SIDE RAILS UP X 2, CALL LIGHT IN REACH. REGULAR DIET SERVED. SIDE RAILS UP X 2, CALL LIGHT IN REACH. O2 ON AT 2 LITER VIA NC.
[2019-04-13 13:00] VITALS: BP 142/65
--- NOTE | 2019-04-13 13:00 | NUR ---
FINISHED LUNCH. SCD'S REPLACED AND WORKING BILATERALLY. SITTING WITH HOB AT 45 DEGREES. INCENTIVE SPIROMETER USED X 3 FOLLOWED BY DEEP PRODUCTIVE COUGH, YELLOW THICK MUCUS WITH FAINT BLOOD TINGED STREAK. EXPLAINED TO PT POSSIBLE SECONDARY TO HARD COUGHING, DRY NOSE THROAT. HAS BEEN USING FAN IN ROOM. ENCOURAGED TO CONTINUE TO PO HYDRATE TO LOOSEN MUCUS. ALSO DISCUSSED AFFECTS OF SMOKING ON CILIA AND IMPORTANCE OF CONSIDERING TRYING TO QUIT SMOKING. SIDE RAILS UP X 2, CALL LIGHT IN REACH.
--- NOTE | 2019-04-13 13:40 | NUR ---
CONFLICT IN ORDER FOR ALBUTEROL ORDERED FOR QID THEN WAS MARKED PRN. CONTACTED DR VINSON TO CONFIRM ORDER IS FOR QID AND NOT PRN. CONCURS ALBUTEROL QID.
--- NOTE | 2019-04-13 13:45 | NUR ---
O2 SATS < 95%. INCREASED O2 TO L LITERS BY NC. PATIENT AROUSED FROM SLEEP EASILY.
--- NOTE | 2019-04-13 14:00 | NUR ---
RESPIRATORY THERAPIST HERE. INFORMED OF 02 INCREASE WITH NOTED IMPROVEMENT OF 02 SATS. ANTIPATES LEAVING 02 AT 3 L.
--- NOTE | 2019-04-13 14:29 | NUR ---
TALKED TO Marcie HICKEY RN REGARDING ORDER FOR 02. PER RN SHE RECIEVED O2 ORDER FROM DR MANDUJANO THIS AM TO MAINTAIN 02 SATS > OR EQUAL TO 95%.
--- NOTE | 2019-04-13 14:42 | NUR ---
SITTING UP IN BED TALKING TO . DENIES NEEDING ANYTHING AT PRESENT. CONTINUES USE OF INCENTIVE SPIROMETER. IV PATENT NS AT 125ML/HR IN RIGHT AC. DILAUDID OIL AND GAS WELL TREATMENT OPERATOR CONTROLLER IN REACH. SCD'S IN PLACE AND WORKING BILATERALLY. SAYS SHE FEELS BETTER AFTER RESPIRATORY TREATMENT. SIDE RAILS UP X 2, CALL LIGHT IN REACH.
--- NOTE | 2019-04-13 15:35 | NUR ---
02 SATS MAINTAINING >95%. PULSE OX OFF. UP AD TOR TO BATHROOM. TOOK SCD'S OFF. DESIRES TO LEAVE OFF "THEY MAKE ME HOT". EXPLAINED PURPOSE OF SCDS'. AGREED TO HAVE THEM BACK ON AT 1600. ICE WATER GIVEN. VISITOR SLEEPING ON COUCH. SIDE RAILS UP X 2, CALL LIGHT IN REACH.
--- NOTE | 2019-04-13 16:03 | NUR ---
SITTING UP IN BED WATCHING TV. AUDIBLE COUGH NOTED FROM ROOM. PRODUCTIVE. OCCASIONAL 6/10 CHEST, BACK AND LOW ABD PAIN, SAYS PUSHING THE CHILD MONITOR BUTTON HELPS. ENCOURAGED TO CONTINUE TO USE INCENTIVE SPIROMETER, DEEP BREATH AND COUGH. SCD'S PLACED BACK ON BILATERALLY AND WORKING. SIDERAILS UP X 2, CALL LIGHT IN REACH.
--- NOTE | 2019-04-13 16:35 | NUR ---
JARED YEAST WASHER DC'D. PT INFORMED OF PLAN TO SWITCH TO PO PAIN MEDICATION.
--- NOTE | 2019-04-13 16:41 | NUR ---
CONFIRMED [address] MANDUJANO. NEW ORDERS RECEIVED. SEE ORDERS.
[2019-04-13 16:50] VITALS: BP 134/62
--- NOTE | 2019-04-13 16:53 | NUR ---
NORCO 10 MG GIVEN PO FOR RELIEF OF 6/10 RIGHT UPPER ABD ACHING. SIDE RAILS UP X2, CALL LIGHT IN REACH. SAYS SHE PLANS TO QUIT SMOKING SHE SAYS SHE IS FEELING BETTER NOW.
--- NOTE | 2019-04-13 17:14 | NUR ---
DURING BENADRYL AND PREDNASONE ADMINISTRATION PATIENT STATES "ARE YOU GIVING ME ZOFRAN? IF THEY WOULD JUST GIVE ME ZOFRAN I WON'T HAVE THE NAUSEA AND VOMITING. I MAY THROW UP ONCE" SAYS SHE HAS TOLD SEVERAL PEOPLE TODAY. CONTACTED DR MANDUJANO. ORDERS RECIEVED FOR ZOFRAN.
--- NOTE | 2019-04-13 17:30 | NUR ---
UP TO BATHROOM TO VOID. SAYS HER PAIN IS MUCH BETTER, ALMOST GONE. SAYS THE NORCO WORKED BETTER THAN THE DILAUDID. SITE FOREMAN NOTIFIED OF NEED FOR ODT ZOFRAN OUT OF PIXIX. WILL HOLD DINNER UNTIL PT RETURNS FROM CT IN CASE OF N&V. IN ROOM.
--- NOTE | 2019-04-13 17:35 | NUR ---
DR GIBBONS VISITED. REAL ESTATE SALES ASSOCIATE WAS HERE BUT LEFT BEFORE PULLING SELENE.
--- NOTE | 2019-04-13 17:45 | NUR ---
RADIOLIGY HERE TO ENGINEER AND GEOLOGIST PATIENT. WAITING FOR ASPHALT PLANT OPERATOR TO RETURN TO [facility].
--- NOTE | 2019-04-13 17:55 | NUR ---
RADIOLOGY OFF FLOOR, TO CALL WHEN PT READY.
--- NOTE | 2019-04-13 18:01 | NUR ---
BRAND RECORDER CONTACTED AND INFORMED PT NEEDS SELENE BEFORE GOING TO CT. SAYS WE ARE NEXT ON HER LIST.
--- NOTE | 2019-04-13 18:15 | NUR ---
ZOFRAN GIVEN ODT. RADIOLOGY NOTIFIED PATIENT READY FOR PICKUP. IV PATENT LEFT ANTECUBITAL NS AT 125 ML/HR. IV HAS BEEN IN LEFT ANTECUBITAL ALL DAY, THIS CORRECTS ANY DOCUMENTATION OF RIGHT ANTECUBITAL.
--- NOTE | 2019-04-13 18:17 | NUR ---
RADIOLOGY HERE TO TAKE PATIENT FOR CT SCAN VIA WHEELCHAIR.
--- NOTE | 2019-04-13 18:40 | NUR ---
RETURNED FROM CT IN WHEELCHAIR. DENIES N&V. REGULAR DIET SERVED. IV NS PLACED BACK ON ALARIS PUMP AT 125 ML/HR. SIDERAILS UP X2, CALL LIGHT IN REACH.
[2019-04-13 19:41] VITALS: BP 149/67
--- NOTE | 2019-04-13 19:41 | NUR ---
PT REC'D COMING FROM RESTROOM AT THIS TIME. IV TO THE LEFT AC PATENT. SITE CLEAR. INCISIONS X3 NOTED TO ABDOMEN. NO DRAINAGE NOTED. INCISION TO RT LOWER ABDOMEN PARTIALLY HEALED. O2 AT 3L VIA NC. PT TOLERATING WELL. SCDWS PLACED. PT RELUCTANT TO WEAR THEM. EXPLAINED THE IMPORTANCE OF SCDS. NO ACUTE DISTRESS NOTED. SEE FLOWSHEET FOR COMPLETE ASSESSMENT. Reinier SUN RN
--- NOTE | 2019-04-13 20:20 | NUR ---
PT SITTING UP EATING IN BED AT THIS TIME. RESPIRATORY IN ROOM FOR TREATMENT. NO DISTRESS NOTED. Reinier SUN RN
--- NOTE | 2019-04-13 21:28 | NUR ---
2100 MEDICATIONS GIVEN AT THIS TIME. PT ALSO MEDICATED FOR PAIN LEVEL OF 9 WITH HYDROCODONE. LOVENOX TO THE LLQ. NO ACUTE DISTRESS NOTED AT THIS TIME. Reinier SUN RN
--- NOTE | 2019-04-13 22:30 | NUR ---
PT REC'D UP GOING TO THE BATHROOM. DENIES ANY NEEDS/PAIN. Reinier SUN RN
--- NOTE | 2019-04-13 23:21 | NUR ---
NEW BAG NS HUNG TO CONTINUE TO INFUSE AT 125 MLS/HR PER ORDER. PT RESTING WITH EYES CLOSED, BUT AROUSED TO TOUCH AND VOICE. DENIES NEEDS. BED IN LOW POSITION WITH SRUP X2. CALL LIGHT AND PHONE WITHIN REACH. SIGNIFICANT OTHER RESTING ON COUCH AT BEDSIDE. SCD'S ON BLE. FAN ON AND ROOM TEMP DECREASED PER PT REQUEST.
[2019-04-14 02:00] VITALS: BP 125/54
--- NOTE | 2019-04-14 02:00 | NUR ---
VITAL SIGNS STABLE AT THIS TIME. PT RESTING COMFORTABLY. NO DISTRESS NOTED.Reinier SUN RN
--- NOTE | 2019-04-14 04:39 | NUR ---
ANTIBIOTIC UP AT THIS TIME. PT MEDICATED FOR PAIN WITH HYDROCODONE. Reinier SUN RN
--- NOTE | 2019-04-14 04:45 | NUR ---
SPUTUM SAMPLE COLLEDTED AND TO LAB. Reinier SUN RN
[2019-04-14 05:33] LABS: BASOPHILS 0 % (0-2); EOSINOPHILS 0 % (0-7); HEMATOCRIT 35.3 % (36.0-48.0); HEMOGLOBIN 11.3 g/dL (12-16); IMMATURE GRANULOCYTES 0.9 % (0-5); LYMPHOCYTES 7.3 % (15-50); MCH 30.2 pg (26.0-34.0); MCV 94.4 fL (80.0-100.0); MEAN PLATELET VOLUME 10.2 fL (7.4-10.4); MONOCYTES 4.4 % (2-11); NEUTROPHILS 87.4 % (40-80); PLATELET COUNT 244 10x3/uL (130-400); RBC 3.74 10x6/uL (4.00-5.40); RDW 13.7 % (11.5-14.5); WBC 22.6 10x3/uL (4.8-10.8)
[2019-04-14 06:06] LABS: COMPLEMENT C4 31.6 mg/dL (17.4-52.2)
[2019-04-14 07:41] VITALS: BP 145/70
--- NOTE | 2019-04-14 07:41 | NUR ---
AWAKE. ALERT AND ORIENTED. SHIFT ASSESSMENT COMPLETED. FRESH WATER GIVEN. DESIRES PAIN MEDICATION WHEN TIME. SIDE RAILS UP X 2, CALL LIGHT IN REACH. VISITOR SLEEPING ON COUCH.
--- NOTE | 2019-04-14 08:24 | NUR ---
NORCO 10 MG GIVEN PO FOR RELIEF OF 8/10 UPPER ABDOMINAL ACHING, SHARP PAIN WORSE WITH COUGHING. SAYS THE NORCO HELPS A LOT BY DECREASING THE COUGHING AND PAIN. SIDE RAILS UP X 2, CALL LIGHT IN REACH.
--- NOTE | 2019-04-14 09:11 | NUR ---
DR MANDUJANO VISITING PATIENT.
--- NOTE | 2019-04-14 09:45 | NUR ---
ENTERED ROOM AND NOTICE PATIENT WITH BLACK ITEM IN HAND. ASKED PT WHAT IS WAS, DID NOT WANT TO TELL THIS RN. FINALLY PT ADMITTED TO VAPING STATES "I'M NOT INHALING". INSTRUCTED PT THAT SHE CANNOT USE IN HOSPITAL AND THAT SPOUSE NEEDS TO REMOVE FROM THE ROOM. VERBALIZED UNDERSTANDING AND SAYS SHE WILL GIVE TO SPOUSE. DR MANDUJANO ON L&D AND INFORMED OF ABOVE INFORMATION. EXPLAINED TO PT DUE TO RESPIRATORY ISSUES SHE SHOULD NOT BE VAPING OR SMOKING DUE TO INCREASE RISK FOR LUNG DAMAGE.
--- NOTE | 2019-04-14 10:00 | NUR ---
UP TO SHOWER. IV SITE COVERED. ITEMS GIVEN FOR SHOWER, COMPLETE LINEN CHANGE DONE.
--- NOTE | 2019-04-14 10:23 | NUR ---
NICODERM PATCH CAME OFF UPPER RIGHT ARM. PT DESIRES TO CONTINUE TO USE. REPLACE PATCH AT THIS TIME UPPER RIGHT SHOULDER BLADE. INSTRUCTED TO NOTIFY RN IF PATCH COMES OFF OR SHE DESIRES REMOVAL FOR PROPER DISPOSAL.
--- NOTE | 2019-04-14 10:33 | NUR ---
PRIOR TO RETURNING TO BED HAD COUGHING SPELL WITH C/O GENERALIZED CHEST PAIN, O2 BACK ON, ENCOURAGED SLOW BREATHING, SMALL SIPS OF WATER. COUGHING RESOLVED DID CHEST PAIN. SAYS THIS HAPPENS TO HER SOMETIMES WHEN COUGHING. RETURNED TO BED. SCDS PLACED, IV RESTARTED, SIDERAILS UP X 2, CALL LIGHT IN REACH.
--- NOTE | 2019-04-14 10:40 | NUR ---
PATIENT HAS ACCESS TO HOSPITAL PORTAL AND CAN SEE LAB RAD RESULTS. SAYS SHE LOOKED AT US RESULTS OF OVARY AND CONCERNED THAT THE CYST SHE HAD SURGERY FOR IS STILL THERE. INSTRUCTED THAT PHYSICIAN WILL NEED TO DISCUSS WITH HER AND CAN BETTER ANSWER HER QUESTIONS. WILL ASK MD TO TALK TO PATIENT IF HE RETURNS TO L&D TODAY. VERBALIZED UNDERSTANDING.
--- NOTE | 2019-04-14 10:50 | NUR ---
NOTED DR VINSON PROGRESS NOTE SAYS TO TITRATE O2 TO MAINTAIN 02 SAT'S ABOVE 90%. PT WITH 02 SAT AT 94% ON ROOM AIR EARLIER THIS AM. CURRENTLY RECEIVING RESP TREATMENT. O2 DECREASED TO 1 L VIA NC PER RESPIRATORY THERAPIST AT THIS TIME.
--- NOTE | 2019-04-14 11:11 | NUR ---
CRYING, UPSET BECAUSE HER WANTS HER TO COME HOME BECAUSE HE SAYS HE CANNOT TAKE CARE OF EVERYTHING INCLUDING HER 7 YEAR OLD SON. SON HAS BEEN STAYING WITH PT'S FATHER. NO FRIENDS OR OTHER RELATIVES THAT CAN ASSIST. INFORMED PT THAT DOUBT MD WILL MEDICALLY DISCHARGE HER. SHE SAYS SHE MAY HAVE TO LEAVE ANYWAY. SHE WILL CALL HER FATHER AND DISCUSS. ALSO OFFERED DRY PAN CHARGER CONSULT FOR POSSIBLE ASSISTANCE, PT DECLINES AT THIS TIME.
[2019-04-14 12:03] VITALS: BP 133/69
--- NOTE | 2019-04-14 12:04 | NUR ---
SITTING UP IN BED LOOKING AT CELL PHONE. IN ROOM. BROUGHT PT LUNCH. PT SAYS HER PAIN IS STARTING TO GET BAD AGAIN. "I THINK I CAN HAVE IT IN ABOUT 20 MINS" (REFERRING TO PAIN MEDICATION). 12/08 UPPER ABD/LOWER RIGHT COSTAL REGION. SIDERAILS UP X 2, CALL LIGHT IN REACH.
--- NOTE | 2019-04-14 12:24 | NUR ---
RETURNING FROM BATHROOM, NOTED TO HAVE PROLONG COUGHING EPISODE WITH C/O UPPER CHEST PAIN. RETURNED TO BED, O2 BACK ON AT 1 L PER NASAL CANNULA, ENCOURAGED SLOW BREATHS, SMALL SIPS OF WATER AND RELAXATION. COUGHING EPISODE PASSED, SAYS PAIN IS GETTING BETTER. NORCO 10 MG GIVEN PO FOR RELIEF OF 9/10 PAIN ACHING/SHARP. C/O PAIN NEAR IV SITE, TAPE REMOVED, STATES "IT DOESN'T HURT NOW. AREA RED UNDER TAPE AFTER REMOVAL. CHANGED OPT SITE, REMOVED ALL EXISTING TAPE, CLOTH TAPE PLACED. STATES "THAT IS BETTER". NO ERRYTHEMA AT SITE OR SIGNS OF INFILTRATION. WILL MONITOR. PT TO NOTIFY RN IF ANY PAIN. VISITORS X 4 IN ROOM. SIDERAILS UP X 2, CALL LIGHT.
--- NOTE | 2019-04-14 14:10 | NUR ---
IV PUMP INCREASED BEEPING DUE TO OCCLUSION. IV DC'D, NOTED BENT CATHETER. TIP INTACT. WILL RESTART.
--- NOTE | 2019-04-14 14:20 | NUR ---
DR VINSON VISITED PT. INFORMED THAT PATIENT SAYS SHE FEELS LIKE SHE COUGHS MORE AT THE CURRENT OXYGEN LEVEL (1 LITER) PER DR GIBBONS CAN UP O2 NEEDED SINCE SHE DOES NOT HAVE COPD. O2 INCREASED TO 2 LITERS. IV RESTARTED IN LEFT HAND WITHOUT DIFFICULTY. 20 G CATH. NS PLACED BACK ON ALARIS PUMP AT 125 ML/HR. SIDE RAILS UP X 2, CALL LIGHT IN REACH. SAYS SHE HAS BEEN USING INCENTIVE SPIROMETER AND FLUTTER HOURLY. ENCOURAGED TO CONTINUE USE WITH EVERY COMMERCIAL BREAK. VERALIZED UNDERSTANDING.
--- NOTE | 2019-04-14 15:47 | NUR ---
CBC, RPR, NPO, START IV ORDERED ON WRONG PT. METALLURGICAL SPECIALIST ALREADY TO ROOM AND FERNANDA BLOOD. LAB NOTIFIED OF CANCELLATION OF ORDER. PT NOTIFIED. C/O SWELLING IN RIGHT KNEE. DR MANDUJANO ON L&D AND NOTIFIED. RIGHT AND LEFT CALF WARM, + PEDAL PULSES BILATERALLY, CALF MEASUREMENT 17 4/3" BILATERALLY. PT FEELS HER RIGHT SIDE IS MORE SWOLLEN THAN LEFT SIDE TO INCLUDE KNEE AND LEFT HAND. WEARING CALF LENGTH TIGHTER EXERCISE PANTS. RECOMMENDED TO PATIENT THAT SHE SHOULD CONSIDER TAKING THEM OFF. ALSO ENCOURAGE FREQUENT MOVEMENT OF LE. SCD'S ON. REMINDED PT THAT THEY NEED TO GO ON AFTER GETTING UP TO BATHROOM TO VOID. SAYS SHE CANNOT REACH THEM. INSTRUCTED TO CALL RN TO GET HELP TO REPLACE. VERBALIZED UNDERSTANDING. SAYS HER UPPER ABDOMEN AND CHEST ACHING/SHARPNESS IS INCREASING. NOW 6 05/02/09. SAYS HER PAIN MEDICATION IS DUE IN 45 MINS. IN ROOM. SIDE RAILS UP X 2. NO DISTRESS NOTED. 02 AT 2 LITER PER NC. O2 SATS AT 97%. PT SAYS SHE FEELS BETTER WITH O2 AT THIS RATE.
--- NOTE | 2019-04-14 16:33 | NUR ---
SITTING UP IN BED, TV ON, LOOKING AT CELL PHONE. NORCO 10 MG GIVEN PO FOR RELIEF OF UPPER ABDOMENAL, CHEST ACHING/SHARP PAIN. STATES "THAT MEDICINE REALLY HELPS. MY PAIN GOES DOWN TO A 2 OR THREE IN ABOUT 10 MINS." O2 CONT AT 2 L PER NC. SCD'S IN PLACE BILATERALLY AND WORKING. IV PATENT. NO CURRENT VISITORS. SAYS SHE JUST FINISHED USING INCENTIVE SPIROMETER AND FLUTTER. REVIEWED NEXT MEDICATIONS FOR RESPIRATORY TREATMENTS AT 1900 AND SCHEDULED MEDS AT 2100. VERBALIZED UNDERSTANDING. FRESH WATER GIVEN. CALL LIGHT IN REACH. TO CALL IF ANYTHING IS NEEDED. ENCOURAGED TO CONTINUE TO MOVE EXTREMETIES FREQUENTLY TO ENCOURAGE BLOOD FLOW AND DECREASE EDEMA.
[2019-04-14 16:36] VITALS: BP 153/70
--- NOTE | 2019-04-14 19:11 | NUR ---
TO ROOM TO CHECK ON PATIENT. SITTING UP IN BED, STARTED TALKING THEN CRYING SAYING SHE NEEDED A "P" BREATHING TREATMENT. HAS PRN TREATMENTS ORDERED, IT IS TIME FOR SCHEDULED TREATMENT. RESPIRATORY THERAPY NOTIFIED. PULSE OX PLACED 97%. O2 ON AT 2 LITERS. ENCOURAGED TO RELAX, TAKE SMALL SIPS OF WATER, REFOCUS. CRYING SLOWED DOWN AND FOLLOWED DIRECTIONS. SIDE RAILS UP X2, CALL LIGHT IN REACH. BEDSIDE REPORT GIVEN TO LYDIA MCKNIGHT RN.
--- NOTE | 2019-04-14 19:48 | NUR ---
RT AT BEDSIDE FOR TREATMENTS AND ASSESSMENT.
[2019-04-14 21:01] VITALS: BP 141/69
--- NOTE | 2019-04-14 21:01 | NUR ---
SHIFT ASSESSMENT COMPLETED PER FLOWSHEET. VSS. 2L O2 VIA NC ON. FINE CRACKLES AUSCULATED TO LEFT LOWER LOBE. PRODUCTIVE COUGH OF YELLOW TO GREEN THICK SPUTUM NOTED. MEDS GIVEN PER EMAR. SCD'S CURRENTLY OFF AND PLACED BACK ON PT. L HAND PIV INFUSING WITHOUT DIFFICULTY, NO S/S OF INFILTRATION NOTED. REINFORCED IMPORTANCE OF USING FLUTTER VALVE AND INCENTIVE SPIROMETER, VERBALIZES UNDERSTANDING. LOVENOX GIVEN TO LUQ, TOLERATED WELL. ENCOURAGED PO FLUID, ICE WATER PROVIDED. REQUEST MEDICATION FOR COUGH. WILL NOTIFY MD OF PT REQUEST.
--- NOTE | 2019-04-14 21:26 | NUR ---
DR. MANDUJANO PAGED TO NOTIFY OF PT REQUEST FOR COUGH MEDS. ORDERS REC'D.
--- NOTE | 2019-04-14 21:40 | NUR ---
AGUSTÍN RRT NOTIFIED OF NEED FOR KESHIA AND GERARD. STATES THAT SHE WILL BRING TO UNIT.
--- NOTE | 2019-04-14 22:23 | NUR ---
UPDATED ON CHANGES IN POC, VERBALIZES UNDERSTANDING. GERARD HUNG PER ORDER AND KESHIA PROVIDED PER PT REQUEST. EDUCATED ON BOTH MEDS. SCD'S ON BLE. ICE WATER PROVIDED. DENIES ADDITIONAL NEEDS AT THIS TIME. BED IN LOW POSITION WITH SRUP X2. CALL LIGHT AND PHONE WITHIN REACH. WILL CONTINUE TO MONITOR.
--- NOTE | 2019-04-15 00:39 | NUR ---
C/O PAIN TO UPPER ABD AND CHEST, SORENESS. 12/08, NORCO GIVEN PER ORDER AND REQUEST. VSS. ICE WATER PROVIDED. SCD'S ON BLE. FAN ON PER PT REQUEST. DENIES ADDITIONAL NEEDS. BED IN LOW POSITION WITH SRUP X2. CALL LIGHT AND PHONE WITHIN REACH. WILL CONTINUE TO MONITOR. O2 NC REMAINS AT 2L/MIN.
[2019-04-15 00:42] VITALS: BP 131/60
--- NOTE | 2019-04-15 01:21 | NUR ---
PAIN REASSESSMENT COMPLETED. RESTING WITH EYES CLOSED LAYING ON LEFT SIDE. HOB ELEVATED 30 DEGREES. RESP REGULAR AND UNLABORED. NC REMAINS ON. SCD'S ON BLE. BED IN LOW POSITION WITH SRUP X2. CALL LIGHT AND PHONE WITHIN REACH. WILL CONTINUE TO MONITOR.
--- NOTE | 2019-04-15 03:01 | NUR ---
LAYING ON LT SIDE RESTING WITH EYES CLOSED. RESP REGULAR AND UNLABORED, NO S/S OF DISTRESS NOTED. O2 AND SCD'S ON. BED IN LOW POSITION WITH SRUP X2. CALL LIGHT AND PHONE WITHIN REACH. WILL CONTINUE TO MONITOR.
--- NOTE | 2019-04-15 04:39 | NUR ---
SCHEDULED ENOC HUNG PER ORDER. C/O CHEST SORENESS 12/08, NORCO GIVEN PER ORDER AND PT REQUEST. ROBITUSSIN ALSO GIVEN PER PT REQUEST. CONTINUES TO HAVE PRODUCTIVE COUGH, THICK YELLOW SPUTUM NOTED WITH OCCASIONAL SCANT AMT OF BLOOD. REQUEST PRN RT TREATMENT. RT NOTIFIED AND WILL COME TO UNIT. SCD'S OFF PER PT AND REQUEST TO LEAVE SCD'S OFF. BED IN LOW POSITION WITH SRUP X2. CALL LIGHT AND PHONE WITHIN REACH. WILL CONTINUE TO MONITOR AND ASSIST PRN.
[2019-04-15 04:47] VITALS: BP 153/72
--- NOTE | 2019-04-15 05:21 | NUR ---
PAIN REASSESSMENT COMPLETED. 10/08, STATES THAT PAIN MED "HELPED A LITTLE." ICE WATER PROVIDED. DENIES ADDITIONAL NEEDS.
--- NOTE | 2019-04-15 06:17 | NUR ---
RAILWAY SIGNAL ELECTRICIAN TO DESK, STATES THAT PT IS REFUSING AM LAB DRAW. RN TO ROOM TO FOLLOW UP WITH PT AND EXPLAIN IMPORTANCE AND PURPOSE OF LAB DRAW.
--- NOTE | 2019-04-15 06:22 | NUR ---
RN TO BEDSIDE. PT EDUCATED ON PURPOSE OF AND IMPORTANCE OF LAB DRAW, VERBALIZES UNDERSTANDING AND IS AGREEABLE TO LAB DRAW. NATALY [employer] ARCHITECT NOTIFIED.
--- NOTE | 2019-04-15 06:22 | NUR ---
NATALY, INSTANT POTATO PROCESSING SUPERVISOR AT BEDSIDE TO DRAW ORDERED LAB. PT C/O VAGINAL BURNING, STINGING, AND ITCHING. STATES "IT FEELS JUST A YEAST INFECTION." NO DISCHARGE NOTED AND PT DENIES DISCHARGE. WILL REPORT TO DR. MANDUJANO.
[2019-04-15 06:45] LABS: BASOPHILS 0.2 % (0-2); EOSINOPHILS 1.7 % (0-7); HEMATOCRIT 32.9 % (36.0-48.0); HEMOGLOBIN 10.5 g/dL (12-16); IMMATURE GRANULOCYTES 0.8 % (0-5); LYMPHOCYTES 22.2 % (15-50); MCH 30.3 pg (26.0-34.0); MCHC 31.9 g/dL (31.0-37.0); MCV 95.1 fL (80.0-100.0); MEAN PLATELET VOLUME 9.8 fL (7.4-10.4); NEUTROPHILS 67.1 % (40-80); PLATELET COUNT 237 10x3/uL (130-400); RBC 3.46 10x6/uL (4.00-5.40); RDW 14.2 % (11.5-14.5)
--- NOTE | 2019-04-15 06:46 | NUR ---
DR. MANDUJANO PAGED WITH IMMEDIATE CALL BACK REC'D. REPORT GIVEN REGARDING PT COMPLAINTS OF VAGINAL BURNING, STINGING, AND ITCHING. ORDERS REC'D.
[2019-04-15 07:05] LABS: WBC 14.1 10x3/uL (4.8-10.8)
[2019-04-15 07:15] LABS: CALC OSMOLALITY 279 mosm/kg (275-300); CALCIUM 7.9 mg/dL (8.5-10.1); CARBON DIOXIDE 23.8 mmol/L (21.0-32.0); CHLORIDE - SERUM 108 mmol/L (98-107); CREATININE - SERUM 0.5 mg/dL (0.6-1.3); GLUCOSE 88 mg/dL (74-106); MAGNESIUM - SERUM 1.9 mg/dL (1.8-2.4); PHOSPHOROUS 3.1 mg/dL (2.5-4.9); SODIUM 141 mmol/L (136-145); UREA NITROGEN 12 mg/dL (7-18); eGFR NON AFRICAN AMERICAN > 90 mL/min (90-120)
[2019-04-15 08:28] VITALS: BP 136/65
--- NOTE | 2019-04-15 08:28 | NUR ---
THIS RN TO ROOM FOR SHIFT ASSESSMENT. VSS, SHIFT ASSESSMENT COMPLETE, SEE FLOWSHEET FOR FULL ASSESSMENT DETAILS. PT RATING PAIN 8/10 AT THIS TIME, UPPER ABD/CHEST MUSCLES FROM COUGHING. PT REQUESTING NORCO. WILL ADMIN ORDERED.
--- NOTE | 2019-04-15 09:23 | NUR ---
PT SIG OTHER TO UNIT DESK STATING PT IS REQUESTING PRN UPDRAFT. RESPIRATORY PAGED AND NOTFIED.
--- NOTE | 2019-04-15 09:36 | NUR ---
RESPIRATORY TO ROOM FOR UPDRAFT.
--- NOTE | 2019-04-15 10:37 | NUR ---
DR WYMAN GIVES VERBAL ORDER TO TRANSFER PT TO MED SURG FLOOR AT APPROX 1000. CHARGE NURSE DINESH BIRD NOTIFIES RN SOCIAL SERVICES. TINO RN SOCIAL SERVICES CALLS BACK WITH BED #2227 TO TRANSFER PT TO.
--- NOTE | 2019-04-15 11:30 | NUR ---
PT GIVEN UPDATE ON POC AND ORDER FOR TRANSFER. SIG OTHER GATHERING BELONGINGS.
--- NOTE | 2019-04-15 11:40 | NUR ---
REPORT GIVEN TO RECEIVING RN.
--- NOTE | 2019-04-15 11:50 | NUR ---
THIS RN SPOKE WITH PHARMACIST REGARDING TIMING OF VANK PEAK/TROUGH ORDERS NEEDED. STATES THEY WILL MANAGE LAB TIMES.
--- NOTE | 2019-04-15 11:56 | NUR ---
PT TRANSFERRED TO ROOM 1227 VIA W/C PER TRANSFER ORDER. REPORT GIVEN TO RECEIVING RN. PT TO BED WITH SRUx2, LOW POSITION. OXYGEN AT 2L NC AND IV INFUSING ORDERED.
--- NOTE | 2019-04-15 12:00 | NUR ---
PT RECIEVED FROM LABOR AND DELIEVERY. NO SIGNS OF DISTRESS. IV TO LEFT HAND PATENT NO REDNESS OR TENDERNESS. HAS 3 LAP SITES TO ABDOMEN. COMPLAINS OF PAIN. WILL ADDRESS. ON 2L NC. DENIES ANY FURTHER NEED AT THIS TIME. CALL LIGHT IN REACH. BED LOW POSITION. FAMILY AT BEDSIDE
[2019-04-15 13:24] VITALS: BP 102/61
[2019-04-15 20:50] VITALS: BP 118/62
--- NOTE | 2019-04-15 21:19 | NUR ---
MEDS GIVEN PER JUN. LAP SITES TO ABD. C/D/I. C/O PAIN INCISIONAL AREA. RATES LEVEL #6. NORCO TAB ONE PO GIVEN FOR PAIN CONTROL.
--- NOTE | 2019-04-15 22:47 | NUR ---
ASSESSMENT PER FLOWSHEET. IV PATENT LEFT HAND OF NS AT 125CC'S/HR SITE CLEAR.
[2019-04-16 00:59] VITALS: BP 108/59
--- NOTE | 2019-04-16 01:53 | NUR ---
C/O INCISIONAL PAIN RATES PAIN LEVEL #8. NORCO TAB ONE PO GIVEN FOR PAIN CONTROL.
[2019-04-16 04:06] VITALS: BP 123/68
[2019-04-16 06:59] LABS: BASOPHILS 0.1 % (0-2); EOSINOPHILS 0.1 % (0-7); HEMATOCRIT 35.8 % (36.0-48.0); HEMOGLOBIN 11.8 g/dL (12-16); IMMATURE GRANULOCYTES 0.6 % (0-5); LYMPHOCYTES 10.4 % (15-50); MCH 30.7 pg (26.0-34.0); MCV 93.2 fL (80.0-100.0); MEAN PLATELET VOLUME 9.8 fL (7.4-10.4); MONOCYTES 1.8 % (2-11); RBC 3.84 10x6/uL (4.00-5.40); RDW 13.5 % (11.5-14.5)
[2019-04-16 07:22] LABS: PLATELET COUNT 301 10x3/uL (130-400)
--- NOTE | 2019-04-16 07:30 | NUR ---
PATIENT IN BED WITH IV INTACT. SITTING UP TALKING ON PHONE. DENIES ANY NEEDS AT THIS TIME. CALL LIGHT WITHIN REACH.
[2019-04-16 07:34] LABS: CALC OSMOLALITY 276 mosm/kg (275-300); CALCIUM 9.3 mg/dL (8.5-10.1); CARBON DIOXIDE 28.8 mmol/L (21.0-32.0); CHLORIDE - SERUM 101 mmol/L (98-107); CREATININE - SERUM 0.8 mg/dL (0.6-1.3); GLUCOSE 180 mg/dL (74-106); MAGNESIUM - SERUM 2.3 mg/dL (1.8-2.4); PHOSPHOROUS 3.1 mg/dL (2.5-4.9); POTASSIUM - SERUM 4.7 mmol/L (3.5-5.1); PRO BNP 606 pg/mL (0-125); SODIUM 136 mmol/L (136-145); UREA NITROGEN 12 mg/dL (7-18); eGFR NON AFRICAN AMERICAN 89 mL/min (90-120)
[2019-04-16 08:11] LABS: IMMUNOGLOBULIN A 181 mg/dL (87-352); IMMUNOGLOBULIN G 752 mg/dL (700-1600)
[2019-04-16 09:24] VITALS: BP 139/84
--- NOTE | 2019-04-16 09:28 | MORECARE ---
CASE MANAGEMENT DISCHARGE SUMMARY PATIENT: RAY HERRING UNIT: [id number] ADM DATE: 04/12/19 AGE: 28 : [birth year] SEX: F ROOM/BED: D.2227 AUTHOR: AARON NAVARRETE PHYSICIAN: REFERRING PHYSICIAN: RAYMOND MANDUJANO MD DATE OF SERVICE: 04/16/19 Discharge Plan Patient Name: RAY HERR[facility] [facility] 1990 Planned Disposition: Home Anticipated Discharge Date: Discharge Date: Expected LOS: Initial Reviewer: [email or web address] Initial Review Date: 04/16/2019 Generated: 04/16/19 10:28 am DCPIA - Discharge Planning Initial Assessment Updated by [email or web address]: Olesya Mckeon on 04/16/19 9:27 am * Is the patient Alert and Oriented? Yes * How many steps to enter\exit or inside your home? 0/0 * PCP [facility] on [address] - she sees Niall Bryant or Dina * Pharmacy [facility] on [facility] * Preadmission Environment Home with Family * ADLs Independent * Equipment None * List name and contact numbers for known caregivers / representatives who currently or will assist patient after discharge: Juan melchor?e - [phone] * Verbal permission to speak to the caregivers and representatives has been obtained from the patient. Yes * Community resources currently utilized None * Additional services required to return to the preadmission environment? Yes * Can the patient safely return to the preadmission environment? Yes * Has this patient been hospitalized within the prior 30 days at any hospital? No Patient Name: RAY HERRING Page [id number] at 0928 All edits/amendments must be made on the electronic document DICTATION DATE: 04/16/19927 PACKAGING SALES CONSULTANT: ITZEL 04/16/19927 RPT#: [id number] DC DATE: STATUS: ADM IN [facility] [address] [place] [address] END OF REPORT
--- NOTE | 2019-04-16 09:36 | MORECARE ---
CASE MANAGEMENT DISCHARGE SUMMARY PATIENT: RAY HERRING UNIT: [id number] ADM DATE: 04/12/19 AGE: 28 : [birth year] SEX: F ROOM/BED: D.2227 AUTHOR: ROSALBA,DOC PHYSICIAN: REFERRING PHYSICIAN: RAYMOND MANDUJANO MD DATE OF SERVICE: 04/16/19 Discharge Plan Patient Name: RAY HERRING Facility: [facility]:[place] : 1990 Planned Disposition: Home Anticipated Discharge Date: Discharge Date: Expected LOS: Initial Reviewer: [id number] Initial Review Date: 04/16/2019 Generated: 04/16/19 10:35 am Comments DCP- Discharge Planning Updated by [email or web address]: Olesya Mckeon on 04/16/19 8:[address] Patient Name: RAY HERRING Admission Status: ER Accout number: [id number] Admission Date: 04-12-2019 : 1990 Admission Diagnosis: Attending: RAYMOND MANDUJANO Current LOS: 4 Anticipated DC Date: Planned Disposition: Home Primary Insurance: MEDICAID [place] Discharge Planning Comments: CM met with patient to complete initial dc planning assessment. CM educated patient on the CM role and verbal consent given by patient to complete assessment. Patient lives at home with her fiancee. At discharge patient plans to return and feels this is a safe discharge. CM discussed availability of home health, rehab services, and medical equipment. Patient states she will need a nebulizer if Dr. Dallas orders it, RAJINDER for Michael signed. I will need to contact Dr. Dallas for the order. CM will continue to follow and will assist as needed with dc plans/needs. Oil Treater: Olesya Mckeon DCPIA - Discharge Planning Initial Assessment Updated by [email or web address]: Olesya Mckeon on 04/16/19 9:27 am * Is the patient Alert and Oriented? Yes * How many steps to enter\exit or inside your home? 0/0 * PCP [facility] on [address] - she sees Niall Bryant or Dina * Pharmacy [facility] on [facility] * Preadmission Environment Home with Family * ADLs Independent * Equipment None * List name and contact numbers for known caregivers / representatives who currently or will assist patient after discharge: Juan Jacobsencirilo melchor?e - [phone] * Verbal permission to speak to the caregivers and representatives has been obtained from the patient. Yes * Community resources currently utilized None * Additional services required to return to the preadmission environment? Yes * Can the patient safely return to the preadmission environment? Yes * Has this patient been hospitalized within the prior 30 days at any hospital? No Coverage Notice Reviewer: [id number] Roddy Mckeon Notice Issued Date-Time: 04/16/2019 9:31 Notice Type: Patient Choice Letter Notice Delivered To: Patient Relationship to Patient: Rn Research Name: Delivery Method: HAND - Hand Delivered Brandy Days: Prior Verbal Notification: Recipient Understood Notice: Yes Recipient Signature: Yes Med Rec Note Co-signed by Attending: Coverage Notice Comment: RAJINDER for Michael Ugalde DP export: 04/16/19 8:28 Patient Name: RAY HERRING Page [phone] at 0936 All edits/amendments must be made on the electronic document DICTATION DATE: 04/16/19934 MORTGAGE PROCESSOR: TIZEL 04/16/19934 RPT#: [id number] DC DATE: STATUS: ADM IN [facility] [address] [place] [address] END OF REPORT
[2019-04-16 10:10] LABS: ANA REFLEX - DIRECT Negative (Negative)
[2019-04-16 13:14] VITALS: BP 122/60
--- NOTE | 2019-04-16 14:11 | NUR ---
PATIENT WANTING TO GO HOME. EXPLAINED HAD TO WAIT FOR PHYSICIAN TO OK. VERBALIZED UNDERSTANDING. NO COMPLAINTS. CALL LGIHT WITHIN REACH. IV INTACT.
--- NOTE | 2019-04-16 15:00 | MORECARE ---
CASE MANAGEMENT DISCHARGE SUMMARY PATIENT: RAY HERRING UNIT: [id number] ADM DATE: 04/12/19 AGE: 28 : [birth year] SEX: F ROOM/BED: D.2227 AUTHOR: ROSALBA,DOC PHYSICIAN: REFERRING PHYSICIAN: RAYMOND MANDUJANO MD DATE OF SERVICE: 04/16/19 Discharge Plan Patient Name: RAY HERRING Facility: [facility]:[place] : 1990 Planned Disposition: Home Anticipated Discharge Date: Discharge Date: Expected LOS: Initial Reviewer: [email or web address] Initial Review Date: 04/16/2019 Generated: 04/16/19 3:59 pm Comments DCP- Discharge Planning Updated by [email or web address]: Olesya Mckeon on 04/16/19 8:[address] Patient Name: RAY HERRING Admission Status: ER Accout number: [id number] Admission Date: 04-12-2019 : 1990 Admission Diagnosis: Attending: RAYMOND MANDUJANO Current LOS: 4 Anticipated DC Date: Planned Disposition: Home Primary Insurance: MEDICAID [place] Discharge Planning Comments: CM met with patient to complete initial dc planning assessment. CM educated patient on the CM role and verbal consent given by patient to complete assessment. Patient lives at home with her fiancee. At discharge patient plans to return and feels this is a safe discharge. CM discussed availability of home health, rehab services, and medical equipment. Patient states she will need a nebulizer if Dr. Dallas orders it, RAJINDER for Michael signed. I will need to contact Dr. Dallas for the order. CM will continue to follow and will assist as needed with dc plans/needs. Bushing Press Operator: Olesya Mckeon DCPIA - Discharge Planning Initial Assessment Updated by [email or web address]: Olesya Mckeon on 04/16/19 9:27 am * Is the patient Alert and Oriented? Yes * How many steps to enter\exit or inside your home? 0/0 * PCP [facility] on [address] - she sees Niall Bryant or Dina * Pharmacy [facility] on [facility] * Preadmission Environment Home with Family * ADLs Independent * Equipment None * List name and contact numbers for known caregivers / representatives who currently or will assist patient after discharge: Juan Juarez Roddy tristanporsha?e - [phone] * Verbal permission to speak to the caregivers and representatives has been obtained from the patient. Yes * Community resources currently utilized None * Additional services required to return to the preadmission environment? Yes * Can the patient safely return to the preadmission environment? Yes * Has this patient been hospitalized within the prior 30 days at any hospital? No External Providers External Provider: Reynaldo Next Contact Date: Service Request Date: Service Type: Resolution: Reviewer: Comments: Coverage Notice Reviewer: [id number] Roddy Mckeon Notice Issued Date-Time: 04/16/2019 9:31 Notice Type: Patient Choice Letter Notice Delivered To: Patient Relationship to Patient: Clinical Aide Name: Delivery Method: HAND - Hand Delivered Brandy Days: Prior Verbal Notification: Recipient Understood Notice: Yes Recipient Signature: Yes Med Rec Note Co-signed by Attending: Coverage Notice Comment: RAJINDER for Michael Last DP export: 04/16/19 8:36 Patient Name: RAY HERRING Page 12764 at 1500 All edits/amendments must be made on the electronic document DICTATION DATE: 04/16/191458 INSTALLER: ITZEL 04/16/191458 RPT#: [id number] DC DATE: STATUS: ADM IN [facility] [address] [place] [address] END OF REPORT
--- NOTE | 2019-04-16 15:09 | MORECARE ---
CASE MANAGEMENT DISCHARGE SUMMARY PATIENT: RAY HERRING UNIT: [id number] ADM DATE: 04/12/19 AGE: 28 : [birth year] SEX: F ROOM/BED: D.2227 AUTHOR: ROSALBA,DOC PHYSICIAN: REFERRING PHYSICIAN: RAYMOND MANDUJANO MD DATE OF SERVICE: 04/16/19 Discharge Plan Patient Name: RAY HERRING Facility: [facility]:[place] : 1990 Planned Disposition: Home Anticipated Discharge Date: Discharge Date: Expected LOS: Initial Reviewer: [email or web address] Initial Review Date: 04/16/2019 Generated: 04/16/19 4:09 pm Comments DCP- Discharge Planning Updated by [email or web address]: Olesya Mckeon on 04/16/19 2:[address] CLINICAL FAXED TO [facility] FOR NEBULIZER. CM WILL CONTINUE TO FOLLOW AND ASSIST WITH DISCHARGE PLANNING/NEEDS. DCP- Discharge Planning Updated by [email or web address]: Olesya Mckeon on 04/16/19 8:[address] Patient Name: RAY HERRING Admission Status: ER Accout number: [id number] Admission Date: 04-12-2019 : 1990 Admission Diagnosis: Attending: RAYMOND MANDUJANO Current LOS: 4 Anticipated DC Date: Planned Disposition: Home Primary Insurance: MEDICAID [place] Discharge Planning Comments: CM met with patient to complete initial dc planning assessment. CM educated patient on the CM role and verbal consent given by patient to complete assessment. Patient lives at home with her fiancee. At discharge patient plans to return and feels this is a safe discharge. CM discussed availability of home health, rehab services, and medical equipment. Patient states she will need a nebulizer if Dr. Dallas orders it, RAJINDER for [facility] signed. I will need to contact Dr. Dallas for the order. CM will continue to follow and will assist as needed with dc plans/needs. Tariff Compiling Clerk: Olesya Mckeon DCPIA - Discharge Planning Initial Assessment Updated by [id number]: Olesya Mckeon on 04/16/19 9:27 am * Is the patient Alert and Oriented? Yes * How many steps to enter\exit or inside your home? 0/0 * PCP [facility] [address] - she sees Niall Alfarogreg or Dina * Pharmacy [facility] [address] * Preadmission Environment Home with Family * ADLs Independent * Equipment None * List name and contact numbers for known caregivers / representatives who currently or will assist patient after discharge: Juan melchor?e - [phone] * Verbal permission to speak to the caregivers and representatives has been obtained from the patient. Yes * Community resources currently utilized None * Additional services required to return to the preadmission environment? Yes * Can the patient safely return to the preadmission environment? Yes * Has this patient been hospitalized within the prior 30 days at any hospital? No Coverage Notice Reviewer: [id number] Roddy Mckeon Notice Issued Date-Time: 04/16/2019 9:31 Notice Type: Patient Choice Letter Notice Delivered To: Patient Relationship to Patient: Manager Card Name: Delivery Method: HAND - Hand Delivered Brandy Days: Prior Verbal Notification: Recipient Understood Notice: Yes Recipient Signature: Yes Med Rec Note Co-signed by Attending: Coverage Notice Comment: RAJINDER for Michael Ugalde DP export: 04/16/19 2:00 Patient Name: RAY HERRING Page 34510 at 1509 All edits/amendments must be made on the electronic document DICTATION DATE: 04/16/191508 SUPERVISOR SLEEPING BAG DEPARTMENT: ITZEL 04/16/19 150 RPT#: [id number] DC DATE: STATUS: ADM IN [facility] [address] [place] [address] END OF REPORT
[2019-04-16 16:27] VITALS: BP 136/72
--- NOTE | 2019-04-16 18:47 | NUR ---
PATIENT IN BED WITH IV INTACT. NO COMPLAINTS OR SIGNS OF DISTRESS. FAMILY AT BEDSIDE. CALL LIGHT WITHIN REACH.
[2019-04-16 20:40] VITALS: BP 130/70
--- NOTE | 2019-04-16 23:19 | NUR ---
I have reviewed this patient and I concur with the Shift Assessment completed by the Licensed Practical Nurse today this shift.
[2019-04-17 01:00] VITALS: BP 118/58
--- NOTE | 2019-04-17 02:15 | NUR ---
PT RESTING IN BED. EYES CLOSED. NO SIGNS OF DISTRESS. BREATHING EVEN AND UNLABORED. IV SITE LA FA DRESSING CLEAN DRY AND INTACT. NO SIGNS OF INFECTION. 2LO2 NASAL CANNULA. BOWEL SOUNDS ACTIVE NO LOWER LEG SWELLING PRESENT. WILL CONTINUE PLAN OF CARE. CALL LIGHT IN REACH. BED LOWERED AND LOCKED. BED RAILS UPX2.
[2019-04-17 04:47] VITALS: BP 133/67
[2019-04-17 06:09] LABS: IGG SUBCLASS 1 359 mg/dL (248-810); IGG SUBCLASS 2 255 mg/dL (130-555); IGG SUBCLASS 3 60 mg/dL (15-102); IGG SUBCLASS 4 37 mg/dL (2-96); IGGS - IGG SERUM 745 mg/dL (700-1600)
[2019-04-17 06:34] LABS: BASOPHILS 0.1 % (0-2); EOSINOPHILS 0 % (0-7); HEMATOCRIT 34.9 % (36.0-48.0); HEMOGLOBIN 11.4 g/dL (12-16); IMMATURE GRANULOCYTES 1.3 % (0-5); LYMPHOCYTES 13.9 % (15-50); MCH 30.6 pg (26.0-34.0); MCHC 32.7 g/dL (31.0-37.0); MCV 93.8 fL (80.0-100.0); MEAN PLATELET VOLUME 10.2 fL (7.4-10.4); MONOCYTES 6.3 % (2-11); NEUTROPHILS 78.4 % (40-80); PLATELET COUNT 303 10x3/uL (130-400); RBC 3.72 10x6/uL (4.00-5.40); RDW 13.4 % (11.5-14.5); WBC 18.1 10x3/uL (4.8-10.8)
[2019-04-17 06:54] LABS: CALC OSMOLALITY 274 mosm/kg (275-300); CALCIUM 8.7 mg/dL (8.5-10.1); CARBON DIOXIDE 27.9 mmol/L (21.0-32.0); CHLORIDE - SERUM 101 mmol/L (98-107); CREATININE - SERUM 0.6 mg/dL (0.6-1.3); GLUCOSE 163 mg/dL (74-106); POTASSIUM - SERUM 4.5 mmol/L (3.5-5.1); SODIUM 135 mmol/L (136-145); UREA NITROGEN 15 mg/dL (7-18); eGFR NON AFRICAN AMERICAN > 90 mL/min (90-120)
--- NOTE | 2019-04-17 07:44 | NUR ---
ALERT AND ORIENTED. LUNGS WITH BILATERAL WHEEZES. HEART SOUNDS S1 AND S2 HEARD IN ALL GARCIA. BOWEL SOUNDS ACTIVE X 4. SKIN INTACT WITHOUT REDNESS. IV TO LEFT HAND PATENT WITHOUT REDNESS. O2 IN PLACE AT 2L NC. DENIES NEEDS. BED LOW. CALL LOPEZ AND PERSONAL ITEMS IN REACH. WILL CONTINUE TO MONITOR.
--- NOTE | 2019-04-17 08:00 | NUR ---
REQUESTED AND GIVEN PRN PAIN MEDICATION.
[2019-04-17 09:02] VITALS: BP 117/64
[2019-04-17 11:10] LABS: C1 ESTERASE INHIBITOR 35 mg/dL (21-39)
--- NOTE | 2019-04-17 12:00 | NUR ---
REQUESTED AND GIVEN PRN PAIN MEDICATION.
[2019-04-17 12:55] VITALS: BP 146/84
--- NOTE | 2019-04-17 14:42 | NUR ---
RESTING IN BED. DENIES NEEDS. WILL CONTINUE TO MONITOR.
--- NOTE | 2019-04-17 15:50 | NUR ---
PATIENT STATES DR GIBBONS WAS ON FLOOR AND DID NOT GET TO SEE. WANTS TO GO HOME. DR GIBBONS PAGED.
[2019-04-17 16:38] VITALS: BP 117/56
--- NOTE | 2019-04-17 19:40 | NUR ---
SITTING UP IN BED WATCHING TV. ALERT AND ORIENTED X4. RESP IRREG. SOB NOTED. REPORTS PROD COUGH WITH CHOWDHURY SPUTUM. REPORTS PAIN IN RT CHEST AND BACK 7. SOB WITH MIN EXERTION. NS @ 50 MLHR INFUSING IN LT HAND WITHOUT DIFF. SCDS REFUSED. AMBULATORY. CL IN REACH.
--- NOTE | 2019-04-17 20:19 | NUR ---
MEDICATED WITH NORCO FOR C/O PAIN IN RT CHEST AND SIDE. CL IN REACH.
[2019-04-17 20:35] VITALS: BP 113/56
--- NOTE | 2019-04-18 00:35 | NUR ---
MEDICATED WITH NORCO FOR C/O PAIN IN RT CHEST AND SIDE. CL IN REACH.
[2019-04-18 01:26] VITALS: BP 110/43
[2019-04-18 03:07] LABS: IMMUNOGLOBULIN E 196 IU/mL (6-495)
--- NOTE | 2019-04-18 04:30 | NUR ---
MEDICATED WITH NORCO FOR C/O RT CHEST AND BACK PAIN. CL IN REACH.
[2019-04-18 05:20] VITALS: BP 154/80
[2019-04-18 06:11] LABS: BASOPHILS 0.1 % (0-2); EOSINOPHILS 0.1 % (0-7); HEMATOCRIT 38.3 % (36.0-48.0); HEMOGLOBIN 12.8 g/dL (12-16); IMMATURE GRANULOCYTES 2.4 % (0-5); LYMPHOCYTES 19.3 % (15-50); MCHC 33.4 g/dL (31.0-37.0); MCV 92.7 fL (80.0-100.0); MONOCYTES 6.8 % (2-11); NEUTROPHILS 71.3 % (40-80); PLATELET COUNT 345 10x3/uL (130-400); RBC 4.13 10x6/uL (4.00-5.40); RDW 13.3 % (11.5-14.5); WBC 18.4 10x3/uL (4.8-10.8)
[2019-04-18 06:24] LABS: CALC OSMOLALITY 278 mosm/kg (275-300); CALCIUM 8.9 mg/dL (8.5-10.1); CARBON DIOXIDE 27.7 mmol/L (21.0-32.0); CHLORIDE - SERUM 100 mmol/L (98-107); CREATININE - SERUM 0.7 mg/dL (0.6-1.3); GLUCOSE 156 mg/dL (74-106); POTASSIUM - SERUM 4.9 mmol/L (3.5-5.1); SODIUM 137 mmol/L (136-145); UREA NITROGEN 18 mg/dL (7-18); eGFR NON AFRICAN AMERICAN > 90 mL/min (90-120)
--- NOTE | 2019-04-18 07:28 | NUR ---
A/A/OX4. POST OP DAY 9 FOR OVARIAN CYST REMOVAL. HAVING PRODUCTIVE COUGH AND REPORTS KNOTT SPUTUM BUT NONE OBSERVED AT THIS TIME. IV PATENT TO LEFT HAND WITHOUT REDNESS OR EDEMA NOTED AT SITE. NO REQUESTS VOICED. ASSESSMENT COMPLETED AND WILL CONTINUE POC.
[2019-04-18 10:53] VITALS: BP 109/51
--- NOTE | 2019-04-18 11:12 | MORECARE ---
CASE MANAGEMENT DISCHARGE SUMMARY PATIENT: RAY HERRING UNIT: [id number] ADM DATE: 04/12/19 AGE: 28 : 88 SEX: F ROOM/BED: D.2227 AUTHOR: ROSALBA,DOC PHYSICIAN: REFERRING PHYSICIAN: RAYMOND MANDUJANO MD DATE OF SERVICE: 04/18/19 Discharge Plan Patient Name: RAY HERRING Facility: [facility]:[place] : 1990 Planned Disposition: Home Anticipated Discharge Date: Discharge Date: Expected LOS: Initial Reviewer: [email or web address] Initial Review Date: 04/16/2019 Generated: 04/18/19 12:11 pm Comments DCP- Discharge Planning Updated by [email or web address]: Olesya Mckeon on 04/18/19 10:[address] Walk test completed per RT. She does not qualify for home oxygen. Her oxygen saturation is 98% on room air at rest and 96% on room air with exertion. She already has her nebulizer from [facility] in the room and will need to get her neb meds at her pharmacy. CM will continue to follow and assist with discharge planning/needs. DCP- Discharge Planning Updated by [email or web address]: Olesya Eliasabbie on 04/16/19 2:[address] CLINICAL FAXED TO [facility] FOR NEBULIZER. CM WILL CONTINUE TO FOLLOW AND ASSIST WITH DISCHARGE PLANNING/NEEDS. DCP- Discharge Planning Updated by [id number]: Olesya Mckeon on 04/16/19 8:[address] Patient Name: RAY HERRING Admission Status: ER Accout number: [id number] Admission Date: 04-12-2019 : 1990 Admission Diagnosis: Attending: RAYMOND MANDUJANO Current LOS: 4 Anticipated DC Date: Planned Disposition: Home Primary Insurance: MEDICAID [place] Discharge Planning Comments: CM met with patient to complete initial dc planning assessment. CM educated patient on the CM role and verbal consent given by patient to complete assessment. Patient lives at home with her fiancee. At discharge patient plans to return and feels this is a safe discharge. CM discussed availability of home health, rehab services, and medical equipment. Patient states she will need a nebulizer if Dr. Dallas orders it, RAJINDER for [facility] signed. I will need to contact Dr. Dallas for the order. CM will continue to follow and will assist as needed with dc plans/needs. Fax Machine Repairer: Olesya Mckeon DCPIA - Discharge Planning Initial Assessment Updated by [id number]: Olesya Mckeon on 04/16/19 9:27 am * Is the patient Alert and Oriented? Yes * How many steps to enter\exit or inside your home? 0/0 * PCP [facility] [address] - she sees Niall Bryant or Dina * Pharmacy [facility] on [facility] * Preadmission Environment Home with Family * ADLs Independent * Equipment None * List name and contact numbers for known caregivers / representatives who currently or will assist patient after discharge: Juan melchor?e - [phone] * Verbal permission to speak to the caregivers and representatives has been obtained from the patient. Yes * Community resources currently utilized None * Additional services required to return to the preadmission environment? Yes * Can the patient safely return to the preadmission environment? Yes * Has this patient been hospitalized within the prior 30 days at any hospital? No Coverage Notice Reviewer: [id number] - Olesya Mckeon Notice Issued Date-Time: 04/16/2019 9:31 Notice Type: Patient Choice Letter Notice Delivered To: Patient Relationship to Patient: Maintenance Carpenter Name: Delivery Method: HAND - Hand Delivered Brandy Days: Prior Verbal Notification: Recipient Understood Notice: Yes Recipient Signature: Yes Med Rec Note Co-signed by Attending: Coverage Notice Comment: RAJINDER for Michael Last DP export: 04/16/19 2:09 Patient Name: RAY HERRING Page [phone] at 1112 All edits/amendments must be made on the electronic document DICTATION DATE: 04/18/19 1111 APPLICATIONS PROGRAMMER ANALYST: ITZEL 04/18/19 1111 RPT#: [id number] DC DATE: STATUS: ADM IN [facility] [address] [place] [address] END OF REPORT
[2019-04-18 12:45] VITALS: BP 135/62
[2019-04-18 14:12] VITALS: Ht 170.2 cm; Wt 181.4 kg
--- NOTE | 2019-04-18 17:00 | NUR ---
DR. WYMAN ON LD, VERBAL ORDER RECEIVED FROM FOR TYLENOL #4, ONE BY MOUTH EVERY 4 HOURS, NO REFILLS, #25, WITH RE[facility] PHONE# [phone]. PRESCRIPTION CALLED TO PHARMACY.
--- NOTE | 2019-04-19 14:24 | MORECARE ---
CASE MANAGEMENT DISCHARGE SUMMARY PATIENT: RAY HERRING UNIT: [id number] ADM DATE: 04/12/19 AGE: 28 : 88 SEX: F ROOM/BED: D.2227 AUTHOR: ROSALBA,DOC PHYSICIAN: REFERRING PHYSICIAN: RAYMOND MANDUJANO MD DATE OF SERVICE: 04/19/19 Discharge Plan Patient Name: RAY HERRING Facility: [facility]:[place] : 1990 Planned Disposition: Home Anticipated Discharge Date: Discharge Date: 04/18/2019 Expected LOS: 0 Initial Reviewer: [email or web address] Initial Review Date: 04/16/2019 Generated: 04/19/19 3:24 pm Comments DCP- Discharge Planning Updated by [email or web address]: Olesya Mike on 04/18/19 10:[address] Walk test completed per RT. She does not qualify for home oxygen. Her oxygen saturation is 98% on room air at rest and 96% on room air with exertion. She already has her nebulizer from [facility] in the room and will need to get her neb meds at her pharmacy. CM will continue to follow and assist with discharge planning/needs. DCP- Discharge Planning Updated by [email or web address]: Olesya Mike on 04/16/19 2:[address] CLINICAL FAXED TO [facility] FOR NEBULIZER. CM WILL CONTINUE TO FOLLOW AND ASSIST WITH DISCHARGE PLANNING/NEEDS. DCP- Discharge Planning Updated by [email or web address]: Olesya Eliasabbie on 04/16/19 8:[address] Patient Name: RAY HERRING Admission Status: ER Accout number: [id number] Admission Date: 04-12-2019 : 1990 Admission Diagnosis: Attending: RAYMOND MANDUJANO Current LOS: 4 Anticipated DC Date: Planned Disposition: Home Primary Insurance: MEDICAID [place] Discharge Planning Comments: CM met with patient to complete initial dc planning assessment. CM educated patient on the CM role and verbal consent given by patient to complete assessment. Patient lives at home with her fiancee. At discharge patient plans to return and feels this is a safe discharge. CM discussed availability of home health, rehab services, and medical equipment. Patient states she will need a nebulizer if Dr. Dallas orders it, RAJINDER for Michael signed. I will need to contact Dr. Dallas for the order. CM will continue to follow and will assist as needed with dc plans/needs. Segment Block Layer: Olesya Mckeon DCPIA - Discharge Planning Initial Assessment Updated by [id number]: Olesya Mckeon on 04/16/19 9:27 am * Is the patient Alert and Oriented? Yes * How many steps to enter\exit or inside your home? 0/0 * PCP [facility] on [address] - she sees Niall Manny or Dina * Pharmacy [facility] * Preadmission Environment Home with Family * ADLs Independent * Equipment None * List name and contact numbers for known caregivers / representatives who currently or will assist patient after discharge: Juan melchor?e - [phone] * Verbal permission to speak to the caregivers and representatives has been obtained from the patient. Yes * Community resources currently utilized None * Additional services required to return to the preadmission environment? Yes * Can the patient safely return to the preadmission environment? Yes * Has this patient been hospitalized within the prior 30 days at any hospital? No Coverage Notice Reviewer: [id number] - Olesya Mckeon Notice Issued Date-Time: 04/16/2019 9:31 Notice Type: Patient Choice Letter Notice Delivered To: Patient Relationship to Patient: Ems Director Name: Delivery Method: HAND - Hand Delivered Brandy Days: Prior Verbal Notification: Recipient Understood Notice: Yes Recipient Signature: Yes Med Rec Note Co-signed by Attending: Coverage Notice Comment: RAJINDER for Michael Last DP export: 04/18/19 10:12 Patient Name: RAY HERRING Page [phone] at 1424 All edits/amendments must be made on the electronic document DICTATION DATE: 04/19/191422 APPAREL RENTAL CLERK: ITZEL 04/19/19 142 RPT#: [id number] DC DATE:04/18/19 STATUS: DIS IN [facility] [address] [place] [address] END OF REPORT
[2019-04-23 16:08] LABS: COMPLEMENT C1Q 11.3 mg/dL (10.3-20.5)
== END 2019-04-18 17:47 | disposition home or self-care (01) | DRG 193 ==
LOC: D.ER 15:24 → D.MS 21:33 → D.WS 21:33 → D.LD 21:33 → D.MS 04-15 11:40
PROVIDERS: Family Medicine; Internal Medicine Pulmonary Disease; ADMIT Obstetrics & Gynecology; ATTEND Obstetrics & Gynecology
DX: J18.9 Pneumonia, unspecified organism (principal); J81.0 Acute pulmonary edema; Z68.44 Body mass index [BMI] 60.0-69.9, adult; J45.901 Unspecified asthma with (acute) exacerbation; G89.18 Other acute postprocedural pain; E66.01 Morbid (severe) obesity due to excess calories; J20.9 Acute bronchitis, unspecified; M54.9 Dorsalgia, unspecified; D64.9 Anemia, unspecified; F41.8 Other specified anxiety disorders; N80.9 Endometriosis, unspecified; R50.82 Postprocedural fever; D72.829 Elevated white blood cell count, unspecified

== ENCOUNTER 2019-05-01 19:34 | Emergency (ER) | payer MEDICAID ==
[~2019-05-01] VITALS: Ht 170.2 cm; Wt 181.8 kg
[~2019-05-01 19:34] MED LIST changes: +PERCOCET 5-3251 TAB PO
[2019-05-01 19:46] VITALS: Ht 170.2 cm; Wt 181.8 kg
[2019-05-01 20:20] LABS: BASOPHILS 0.4 % (0-2); EOSINOPHILS 1.2 % (0-7); HEMATOCRIT 40.2 % (36.0-48.0); HEMOGLOBIN 13.5 g/dL (12-16); IMMATURE GRANULOCYTES 0.4 % (0-5); LYMPHOCYTES 34.2 % (15-50); MCH 30.6 pg (26.0-34.0); MCHC 33.6 g/dL (31.0-37.0); MCV 91.2 fL (80.0-100.0); MEAN PLATELET VOLUME 9.5 fL (7.4-10.4); MONOCYTES 7.1 % (2-11); NEUTROPHILS 56.7 % (40-80); PLATELET COUNT 282 10x3/uL (130-400); RBC 4.41 10x6/uL (4.00-5.40); RDW 13.1 % (11.5-14.5); WBC 11.3 10x3/uL (4.8-10.8)
[2019-05-01 20:27] LABS: HCG SERUM NEGATIVE (NEGATIVE)
[2019-05-01 20:31] LABS: CALC OSMOLALITY 276 mosm/kg (275-300); CALCIUM 8.7 mg/dL (8.5-10.1); CARBON DIOXIDE 25.9 mmol/L (21.0-32.0); CHLORIDE - SERUM 101 mmol/L (98-107); CREATININE - SERUM 0.7 mg/dL (0.6-1.3); GLUCOSE 128 mg/dL (74-106); SODIUM 138 mmol/L (136-145); UREA NITROGEN 10 mg/dL (7-18); eGFR NON AFRICAN AMERICAN > 90 mL/min (90-120)
[2019-05-01 20:38] LABS: ALBUMIN 3.2 g/dL (3.4-5.0); ALKALINE PHOSPHATASE 76 U/L (46-116); ALT (SGPT) 37 U/L (10-68); AMYLASE - SERUM 22 U/L (25-115); BILIRUBIN - TOTAL 0.11 mg/dL (0.2-1.3); LIPASE 113 U/L (73-393); PROTEIN - SERUM 7.4 g/dL (6.4-8.2); TROPONIN-I < 0.017 ng/mL (0.000-0.060)
[2019-05-01] MEDS ORDERED: VOLTAREN75 MG PO (22:02)
[2019-05-01] MEDS ORDERED: TYLENOL #4 W/CO1 TAB PO (22:02)
[2019-05-01] MEDS ORDERED: ZOFRAN ODT4 MG/UDTAB PO (22:03)
[2019-05-01 22:11] VITALS: BP 134/88
== END 2019-05-01 22:12 | disposition home or self-care (01) ==
LOC: D.ER 19:34
PROVIDERS: Family Medicine
DX: N83.209 Unspecified ovarian cyst, unspecified side (principal); R11.0 Nausea

== ENCOUNTER 2019-05-15 05:00 | Inpatient (IN) | payer MEDICAID ==
[2019-05-13 12:05] LABS: BASOPHILS 0.2 % (0-2); EOSINOPHILS 0.9 % (0-7); HEMATOCRIT 38.3 % (36.0-48.0); HEMOGLOBIN 13.1 g/dL (12-16); IMMATURE GRANULOCYTES 0.4 % (0-5); LYMPHOCYTES 35.7 % (15-50); MCH 31.2 pg (26.0-34.0); MCHC 34.2 g/dL (31.0-37.0); MCV 91.2 fL (80.0-100.0); MEAN PLATELET VOLUME 9.9 fL (7.4-10.4); MONOCYTES 5.3 % (2-11); NEUTROPHILS 57.5 % (40-80); PLATELET COUNT 264 10x3/uL (130-400); RDW 13.5 % (11.5-14.5); WBC 10.1 10x3/uL (4.8-10.8)
[2019-05-13 12:11] LABS: CALC OSMOLALITY 269 mosm/kg (275-300); CALCIUM 8.4 mg/dL (8.5-10.1); CARBON DIOXIDE 24.3 mmol/L (21.0-32.0); CHLORIDE - SERUM 102 mmol/L (98-107); CREATININE - SERUM 0.7 mg/dL (0.6-1.3); GLUCOSE 97 mg/dL (74-106); POTASSIUM - SERUM 4.1 mmol/L (3.5-5.1); SODIUM 136 mmol/L (136-145); UREA NITROGEN 8 mg/dL (7-18); eGFR NON AFRICAN AMERICAN > 90 mL/min (90-120)
[2019-05-15] VITALS (9 sets, daily range): BP systolic 100–149; BP diastolic 54–82; Ht 170.2 cm; Wt 185.9 kg
[~2019-05-15] VITALS: Ht 170.2 cm; Wt 185.9 kg
[~2019-05-15 05:00] MED LIST changes: +PROVENTIL/2.5 MG/3 M; +ZOFRAN ODT4 MG/UDTAB PO
--- NOTE | 2019-05-15 10:30 | NUR ---
RECEIVED PATIENT FROM PACU VIA STRETCHER. PT. TRANSFERRED FROM STRETCHER TO BED WITH ASSIST X4, UTILIZING ROLLER. PT ASSISTED SELF TO CENTER OF BED AND ADJUSTED SELF FOR COMFORT. PT. AWAKE, ALERT, RESPONDING APPRORIATELY. O2 AT 3L VIA NC. IV IN RIGHT AC OF LR INFUSING TO GRAVITY. IV PLACED ON PUMP INFUSING AT 125CC/HR. UMBILICAL INCISION NOTED. INCISION CLOSED WITH SKIN GLUE AND INTACT WITHOUT DRAINAGE. BRUISING NOTED AT UMBILICAL SITE. LOW ABDOMENAL TRANSVERSE INCISION NOTED. CLOSED AND INTACT WITH GLUE WITHOUT DRAINAGE. SURGICAL DRESSING IN PLACE OVER INCISION, NOT SECURED. NOT DRAINAGE NOTED ON DRESSING. SCD'S IN PLACE, ON AND CIRCULATING. GUNDERSON CATHETER SECURED AND DRAINING TO GRAVITY DARK YELLOW URINE. STATES IS STARTING TO FEEL PAIN IN ABDOMEN. ICE CHIPS AND WATER GIVEN.
--- NOTE | 2019-05-15 11:27 | NUR ---
PT REQUESTING PAIN MEDICINE. DILAUDID 2MG GIVEN IVP SLOW OVER 2 MINUTES.
--- NOTE | 2019-05-15 11:30 | NUR ---
OXYGEN DECREASED TO 2LITERS/MIN VIA NC.
--- NOTE | 2019-05-15 12:00 | NUR ---
called to room by pt, upon entering room pt is breathing quickly and complaining that she needs a equipment engineer to control her pain. She is able to slow her breathing when prompted. Explain to pt that Dr Odell could be notified for equipment engineer but she just received IV pain med same as the equipment engineer, she agrees to give med time and see if she has decrease pain. Drake cath repositioned and 200ml clear urine drained from bladder, she does state that sharp pressure is not as intense after this. Spouse and son at bedside, side rails up x 2 with phone and call light in her reach.
--- NOTE | 2019-05-15 12:45 | NUR ---
PT PATTERN KEEPER LIGHT. STATES IS STILL HURTING DESPITE DILAUDID 2MG. DR. WYMAN NOTIFIED OF PATIENT STATUS AND THAT DILAUDID 4MG HAS BEEN PLACED ON HOLD BY PHARMACY. INSTRUCTED BY DR. WYMAN TO GIVE ADDITIONAL 2MG DILAUDID NOW AND TO REQUEST PHARMACY REMOVE THE HOLD ON DILAUDID 4MG FOR FUTURE PAIN RELIEF PATIENT IS NOT NAIVE TO NARCOTICS AND HAS A BMI GREATER THAN 62.
--- NOTE | 2019-05-15 13:05 | NUR ---
IN ROOM TO ADMINISTER PAIN MED. PATIENT CRYING REPORTING PAIN LEVEL OF 10. DILAUDID 2MG GIVEN IVP SLOW OVER 2 MINUTES. AND SON AT BEDSIDE.
--- NOTE | 2019-05-15 14:15 | NUR ---
IN TO SEE PATIENT. RESTING COMFORTABLY, CELL PHONE IN HAND, WATCHING TELEVSION. STATES PAIN IS MUCH BETTER. FAN GIVEN FOR PATIENT COMFORT. NO OTHER COMPLAINTS OR NEEDS AT THIS TIME.
--- NOTE | 2019-05-15 15:44 | NUR ---
PT C/O ABDOMINAL PAIN OF "9" ON 0-10 PAIN SCALE. TORADOL 30 MG GIVEN SIVP OVER 2 MINUTES. PT INSTRUCTED ON MED. VERBALIZES UNDERSTANDING.
--- NOTE | 2019-05-15 17:00 | NUR ---
REQUESTING PAIN MEDICATION. DILAUDID 4MG GIVEN IVP SLOW OVER 2 MINUTES. GUNDERSON CONTINUES DRAINING CONCENTRATED URINE. INCISION REMAINS CLEAN, DRY AND INTACT WITH ABSORBANT DRESSING OVER INCISION UNSECURED. DISCUSSED WITH PATIENT TRYING PO PAIN MEDS AT 2100 WHEN PAIN MEDS WILL BE DUE AND AMBULATING IN ROOM. INFORMED PATIENT THAT DR. WYMAN HAS SAID SHE MAY HAVE REGULAR DIET WHEN TOLERATING PO PAIN MEDICATION AND AMBULATING. PT STATES UNDERSTANDING. PATIENT STATES SHE IS USING INCENTIVE SPIROMETER SEVERAL TIMES PER HOUR. OXYGEN PER NASAL CANULA HAS BEEN DISCONTINUED.
--- NOTE | 2019-05-15 19:00 | NUR ---
REPORT RECEIVED FROM HONEY MONTIEL
--- NOTE | 2019-05-15 19:30 | NUR ---
PATIENT SITTING UP IN BED. STATES PAIN 4 OUT OF 10 WHEN NOT MOVING. ASSESSMENT AND VITAL SIGNS DONE. RESPIRATIONS AT EASE. LUNG SOUNDS CLEAR IN ALL GARCIA. HEART REGULAR RATE AND RHYTHM. ABDOMEN SOFT, TENDER TO TOUCH. BOWEL SOUNDS HYPOACTIVE IN ALL QUADRANTS. PATIENT DENIES PASSING FLATUS AT THIS TIME. INCISION INTACT. ABD PAD OVER INCISION. NO REDNESS, DRAINAGE, OR EDEMA NOTED TO INCISION. NO EDEMA NOTED TO EXTREMITIES. SCD'S ON LOWER EXTREMITIES. SCD'S ON AND WORKING. GUNDERSON CATHETER INTACT. GUNDERSON DRAINING CLEAR, YELLOW URINE TO GRAVITY. GUNDERSON CATHETER BAG EMPTIED. 1600 CC'S OF CLEAR YELLOW URINE OBTAINED. IV IN R AC INFUSING LR @ 125 ML/HR. NO REDNESS OR EDEMA NOTED TO SITE. PATIENT EDUCATED ON COUGHING AND DEEP BREATHING. PATIENT TILTED TO R SIDE. EDUCATED ON IMPORTANCE OF REPOSITIONING. EDUCATED ON USE OF INCENTIVE SPIROMETER. PATIENT DEMONSTRATED KNOWLEDGE ON USE. PATIENT ALSO COUGHING AND DEEP BREATHING. EDUCATED PATIENT ON CARE OF INCISION. PATIENT VERBALIZED UNDERSTANDING. NEW ICE PACK PLACED ON INCISION. BED IN LOWEST POSITION, SIDE RAILS UP X 2, C/L AND WATER WITHIN REACH. PATIENT DENIES ANY FURTHER NEEDS OR CONCERNS AT THIS TIME. NO SIGNS OF DISTRESS NOTED.
--- NOTE | 2019-05-15 20:51 | NUR ---
PATIENT SITTING UP IN BED. REPOSITIONED TO BACK. PATIENT STATES PAIN 9 OUT OF 10. SCHEDULED NEURONTIN 300 MG ADMINISTERED PO, PRN TORADOL 10 MG ADMINISTERED PO, PRN PERCOCET 10/325 MG ADMINISTERED PO. PATIENT COUGHING AND DEEP BREATHING. CRACKERS AND PEANUT BUTTER OFFERED TO PATIENT. PATIENT DENIES ANY FURTHER NEEDS. BED IN LOWEST POSITION, SIDE RAILS UP X 2, C/L AND WATER WITHIN REACH.
--- NOTE | 2019-05-15 22:00 | NUR ---
PATIENT SITTING UP IN BED. STATES PAIN LEVEL HAS DECREASED TO 5/10. EMPTIED 1000 CC'S OF CLEAR URINE FROM GUNDERSON BAG. REMOVED GUNDERSON CATHETER AFTER DEFLATING BALLOON. PATIENT TOLERATED WELL. IV SALINE LOCKED. PATIENT AMBULATED WITH ASSIST TO BATHROOM WITH STEADY GAIT. UNABLE TO VOID AT THIS TIME. PATIENT CHANGED INTO PERSONAL CLOTHES WITH ASSIST. PATIENT AMBULATED IN HALLWAY WITH STEADY GAIT ACCOMPANIED THIS RN. PATIENT BACK TO BED AFTER AMBULATING IN HALLWAY. PATIENT ASSISTED BACK TO BED. ICE PACK TO INCISION. PATIENT NOW SITTING UP IN BED EATING SANDWICH TRAY. PATIENT DENIES ANY FURTHER NEEDS. BED IN LOWEST POSITION, SIDE RAILS UP X 2, C/L AND WATER WITHIN REACH.
--- NOTE | 2019-05-15 23:17 | NUR ---
PATIENT SITTING UP IN BED. STATES PAIN 4 OUT OF 10. PATIENT REPOSITIONED TO LEFT SIDE. DENIES ANY FURTHER NEEDS. BED IN LOWEST POSITION, SIDE RAILS UP X 2, C/L AND WATER WITHIN REACH.
--- NOTE | 2019-05-16 01:00 | NUR ---
PATIENT LYING IN BED QUIETLY. STATES PAIN 3 OUT OF 10. PRN PERCOCET 10/325 ADMINISTERED PO. PATIENT REPOSITIONED SELF TO HER BACK. DENIES ANY FURHTER NEEDS. BED IN LOWEST POSITION, SIDE RAILS UP X 2, C/L AND WATER WITHIN REACH.
[2019-05-16 01:03] VITALS: BP 115/57
--- NOTE | 2019-05-16 02:54 | NUR ---
PATIENT LYING IN BED WITH EYES CLOSED. EADILY AROUSED. STATES PAIN 5 OUT OF 10. SCHEDULED TORADOL 10 MG ADMINISTERED PO. PATIENT AMBULATED WITH ASSIST TO BATHROOM. PATIENT VOIDED 400 CC'S OF CLEAR YELLOW URINE. PATIENT AMBULATED BACK TO BED WITH STEADY GAIT. PATIENT TILTED TO LEFT SIDE. PATIENT COUGHING AND DEEP BREATHING. NEW ICE PACK APPLIED TO INCISION. PATIENT DENIES ANY FURTHER NEEDS OR CONCERNS. BED IN LOWEST POSITION, SIDE RAILS UP X 2, C/L AND WATER WITHIN REACH.
--- NOTE | 2019-05-16 04:57 | NUR ---
PATIENT LYING QUIETLY IN BED WITH EYES CLOSED. EASILY AROUSED. STATES PAIN 8 OUT OF 10. PRN PERCOCET 10/325 ADMINISTERED PO. PATIENT REPOSITIONED SELF TO BACK. PATIENT COUGHING AND DEEP BREATHING. VITAL SIGNS DONE AT THIS TIME. PATIENT DENIES FURTHER NEEDS. BED IN LOWEST POSITION, SIDE RAILS UP X 2, C/L AND WATER WITHIN REACH.
[2019-05-16 05:01] VITALS: BP 137/60
--- NOTE | 2019-05-16 06:15 | NUR ---
PATIENT LYING QUIETLY IN BED WITH EYES CLOSED. RESPIRATIONS AT EASE. NO SIGNS OF DISTRESS NOTED. BED IN LOWEST POSITION, SIDE RAILS UP X 2, C/L AND WATER WITHIN REACH.
--- NOTE | 2019-05-16 07:15 | NUR ---
AM ASSESSMENT COMPLETED CHARTED TO FLOWSHEET. PT IS AWAKE AND ALERT X 3 THIS AM, SHE IS DRESSED AND SITTING UP IN BED WITH COMPLAINT OF PAIN AT INCISION SITE THAT SHE RATES AT 4/10. SALINE LOCK TO RIGHT AC, PATENT AND FLUSHED EASILY WITH 5ML NS. BOWEL SOUNDS PRESENT X 4 BUT REMAIN HYPOACTIVE TO BILAT LOWER QUADRANTS. SHE DENIES NAUSEA AND NO DIZZINESS WHEN AMB. UNDERSTANDS THAT ONE ADDITIONAL MEASURED VOID IS NEEDED. BIKINI INCISION IS CLEAN AND DRY, ABD SOFT TO TOUCH. BILAT SCD'S IN PLACE PER ORDERS. QUESTIONS ASKED ABOUT DISCHARGE TODAY AND TIME DR WOULD BE IN TO SEE HER THIS AM. THOSE QUESTIONS ARE ANSWERED PER THIS RN, PT DENIES ANY OTHER NEEDS OR CONCERNS THIS AM. SIDE RAILS UP X 2 WITH PHONE IN REACH.
--- NOTE | 2019-05-16 08:45 | NUR ---
PT UP TO VOID WITH NO ASSISTANCE NEEDED. ABLE TO VOID 500ML WITH NO COMPLAINTS, ASSISTANCE NEEDED WITH JOSE CARE. BACK TO BED AND POSITIONED SELF FOR COMFORT. RATES PAIN AT 7/10, MEDS GIVEN SCANNED TO EMAR. LIGHTS TURNED OUT PER PT REQUEST. SIDE RAILS UP X 2 WITH PHONE AND CALL LIGHT IN REACH.
--- NOTE | 2019-05-16 09:29 | NUR ---
CALLED BACK TO ROOM. SALINE LOCK REMOVED INTACT FROM RIGHT AC PER PT REQUEST. LIGHTS BACK OUT, CALL LIGHT IN REACH WITH SIDE RAILS UP X 2.
--- NOTE | 2019-05-16 11:30 | NUR ---
PT CALLS OUT REQUESTING PAIN MED.
--- NOTE | 2019-05-16 12:54 | NUR ---
PAIN MED GIVEN SCANNED TO EMAR. RATES PAIN AT INCISION SITE AT 9/10, SHE IS SITTING UP EATING REGULAR DIET, PT CAUTIONED ABOUT EATING ALOT OF FRIED FOODS DUE TO INCREASE GAS. STATES HER UNDERSTANDING. CALL LIGHT IN REACH.
[2019-05-16] MEDS ORDERED: ESTRACE2 MG PO (13:23)
[2019-05-16] MEDS ORDERED: MOBIC7.5 MG PO (13:35)
[2019-05-16] MEDS ORDERED: NEURONTIN 300300 MG PO (13:38)
[2019-05-16] MEDS ORDERED: PERCOCET 7.5/321 TAB PO (13:38)
--- NOTE | 2019-05-16 14:26 | NUR ---
VERBAL AND WRITTEN DISCHARGE INSTRUCTIONS GONE OVER WITHOUT QUESTIONS OR CONCERNS. PT GIVEN WRITTEN SCRIPTS FOR MOBIC 15MG, NEUROTIN 300MG, PERCOCET 7.5/325MG AND ESTRACE 1MG. S/S OF INFECTIONS GONE OVER WITH PT AND SHE UNDERSTANDS THAT IF ANY OF THESE PRESENT THAN SHE IS TO GO TO THE ER. WILL CALL WHEN HER SPOUSE ARRIVES.
--- NOTE | 2019-05-16 14:30 | NUR ---
PLATE HANGER NOTIFIED FOR WHEELCHAIR.
--- NOTE | 2019-05-16 14:40 | NUR ---
PT TAKEN OUT BY WHEELCHAIR HOME WITH SPOUSE.
--- NOTE | 2019-06-01 10:50 | OP ---
PATIENT NAME: RAY HERRING MEDICAL RECORD: [id number] :[birth year] LOCATION:[id number] ADMISSION DATE:05/15/19 SURGEON: WINSTON WYMAN MD DATE OF OPERATION: 05/15/2019 PREOPERATIVE DIAGNOSES: 1. Morbid obesity. 2. Chronic pelvic pain. 3. Right pelvic mass. POSTOPERATIVE DIAGNOSES: 1. Morbid obesity. 2. Chronic pelvic pain. 3. Right pelvic mass. 4. Pelvic adhesions. PROCEDURES: 1. Diagnostic laparoscopy. 2. Exploratory laparotomy. 3. Right salpingo-oophorectomy. SURGEON: Winston Wyman MD ALARM MECHANIC: Dr. Betancourt. STUDENT RNA: Brittany. ANESTHESIA: General. FINDINGS: The patient with morbid obesity and 8 cm of subcutaneous tissue between skin and fascia. Adhesions are encountered in the right lower quadrant limiting visualization and mobility of the ovary. At the time of exploratory laparotomy, 6 to 7 cm simple cystic occurring on the right ovary. SPECIMENS REMOVED: Right ovary with mass. SPECIMEN DISPOSITION: Pathology. ESTIMATED BLOOD LOSS: Less than 150 cc. FLUIDS: 1600 cc lactated Ringer's. URINE OUTPUT: 100 cc of clear urine. COMPLICATIONS: None. DRAIN: Drake to gravity. INDICATIONS: The patient is a 28-year-old female with a history of chronic pelvic pain. The patient had undergone subtotal hysterectomy and LSO. The patient has persistent right pelvic pain and recurrent ovarian cysts. The patient is requesting removal of cyst and ovary. The patient understands the risks and benefits of this procedure and understands the need for hormone replacement therapy in the context of the Women's Health Initiative. OPERATIVE REPORT [id number] RAY HERRING DESCRIPTION OF PROCEDURE: After informed consent was assured, the patient was taken to the operating room, anesthetic was obtained. The patient was then prepped and draped in usual sterile fashion. An incision was made at the umbilicus. A long trocar was used to gain access to the abdomen. Pneumoperitoneum was developed and the patient is in Trendelenburg position. Accessory ports placed with visualization of the right lower quadrant being poor due to adhesions and limitations of Trendelenburg. Because of the obesity, it is decided to move forward with an exploratory laparotomy. The trocar was removed after release of the pneumoperitoneum and an incision was made in the midline horizontally 2 fingerbreadths above the symphysis. This dissection was carried down through the subcutaneous tissues using Bovie cautery until the fascia was reached. Once the fascia was reached, the opening extended laterally. The rectus bellies were in the midline. The peritoneum was entered. The pelvis was explored and the ovary identified. Adhesions were encountered and taken down sharply. Once the adhesions had been taken down, the ovary and cyst had been mobilized, it was brought up to the incision and Juan clamps were used to clamp the infundibulopelvic ligament. The ureter was observed to be below the operative field. The pedicle was developed with scissors and a Juan stitch applied to obtain hemostasis on the infundibulopelvic ligament. Remaining dissection of the attachment of the ovary to the right sidewall was carried out with Metzenbaum scissors. Once the ovary and cyst been removed, pelvis was irrigated, irrigant removed. The fascia was now closed with PDS in a running fashion. The subcutaneous tissues closed in 2 separate layers with plain gut. Skin incision was closed and sterile dressing applied. Sponge, lap, and needle counts correct times 2. The patient was awakened and went to the recovery area in stable condition. TRANSINT:[id number] Voice Confirmation ID: [id number] DOCUMENT ID: [id number] WINSTON WYMAN MD at 1050 CC: [id number] DICTATION DATE: 05/30/19 1002 BATCH AND FURNACE OPERATOR: 05/30/19 1110 DIS IN 05/16/19 [facility] [address] [place] [address]
== END 2019-05-16 14:30 | disposition home or self-care (01) | DRG 742 ==
LOC: D.OPS 05:00 → D.PAN 07:00 → D.LD 08:47 → D.OPS 09:46 → D.LD 05-16 14:30
PROVIDERS: Surgery; ADMIT Obstetrics & Gynecology; ATTEND Obstetrics & Gynecology
PROC: 0UT00ZZ Resection of Right Ovary, Open Approach (ICD-10-PCS; 2019-05-15)
PROC: 0UT50ZZ Resection of Right Fallopian Tube, Open Approach (ICD-10-PCS; principal; 2019-05-15 07:00)
DX: N83.201 Unspecified ovarian cyst, right side (principal); Z68.44 Body mass index [BMI] 60.0-69.9, adult; R19.00 Intra-abdominal and pelvic swelling, mass and lump, unspecified site; R10.2 Pelvic and perineal pain; E66.01 Morbid (severe) obesity due to excess calories

== ENCOUNTER 2019-05-27 08:38 | Emergency (ER) | payer MEDICAID ==
[~2019-05-27] VITALS: Ht 170.2 cm; Wt 185.0 kg
[~2019-05-27 08:38] MED LIST changes: +ESTRACE2 MG PO; +PERCOCET 7.5/321 TAB PO
[2019-05-27 08:43] VITALS: BP 143/98; Ht 170.2 cm; Wt 185.0 kg
[2019-05-27 09:42] LABS: BASOPHILS 0.2 % (0-2); EOSINOPHILS 0.7 % (0-7); HEMATOCRIT 36.4 % (36.0-48.0); HEMOGLOBIN 12.3 g/dL (12-16); IMMATURE GRANULOCYTES 0.5 % (0-5); LYMPHOCYTES 37.9 % (15-50); MCH 30.4 pg (26.0-34.0); MCHC 33.8 g/dL (31.0-37.0); MCV 89.9 fL (80.0-100.0); MEAN PLATELET VOLUME 9.9 fL (7.4-10.4); MONOCYTES 5.8 % (2-11); NEUTROPHILS 54.9 % (40-80); PLATELET COUNT 315 10x3/uL (130-400); RBC 4.05 10x6/uL (4.00-5.40); RDW 13.5 % (11.5-14.5); WBC 9.7 10x3/uL (4.8-10.8)
[2019-05-27 10:02] LABS: CALC OSMOLALITY 274 mosm/kg (275-300); CALCIUM 8.6 mg/dL (8.5-10.1); CARBON DIOXIDE 23.9 mmol/L (21.0-32.0); CHLORIDE - SERUM 103 mmol/L (98-107); CREATININE - SERUM 0.7 mg/dL (0.6-1.3); GLUCOSE 99 mg/dL (74-106); POTASSIUM - SERUM 4.4 mmol/L (3.5-5.1); SODIUM 138 mmol/L (136-145); UREA NITROGEN 11 mg/dL (7-18); eGFR NON AFRICAN AMERICAN > 90 mL/min (90-120)
[2019-05-27 10:09] LABS: ALBUMIN 3.2 g/dL (3.4-5.0); ALKALINE PHOSPHATASE 68 U/L (30-120); ALT (SGPT) 27 U/L (10-68); BILIRUBIN - TOTAL 0.16 mg/dL (0.2-1.3); PROTEIN - SERUM 7.3 g/dL (6.4-8.2)
[2019-05-27] MEDS ORDERED: ELIQUIS5 MG PO (14:00)
[2019-05-27] MEDS ORDERED: GUAIFEN-CODEINE10 ML PO (14:00)
== END 2019-05-27 14:27 | disposition home or self-care (01) ==
LOC: D.ER 08:38
PROVIDERS: Family Medicine
DX: I82.611 Acute embolism and thrombosis of superficial veins of right upper extremity (principal); R05 Cough; J45.909 Unspecified asthma, uncomplicated; Z72.0 Tobacco use; Z90.721 Acquired absence of ovaries, unilateral

== ENCOUNTER → 2019-05-29 07:51 | Outpatient (CLI) | payer MEDICAID ==
[2019-05-27 08:43] VITALS: BMI 63.9
[~2019-05-29 07:51] MED LIST changes: +ELIQUIS5 MG PO; +GUAIFEN-CODEINE10 ML PO
== END | disposition home or self-care (01) ==
LOC: D.CT 07:51
PROVIDERS: ATTEND Obstetrics & Gynecology
DX: G89.18 Other acute postprocedural pain (principal)

== ENCOUNTER 2019-08-24 15:08 | Emergency (ER) | payer MEDICAID ==
[~2019-08-24] VITALS: Ht 170.2 cm; Wt 0.0 kg
[2019-08-24 15:15] VITALS: Ht 170.2 cm; Wt 0.0 kg
[2019-08-24 15:53] LABS: BASOPHILS 0.2 % (0-2); EOSINOPHILS 0.8 % (0-7); HEMATOCRIT 43.3 % (36.0-48.0); HEMOGLOBIN 14.2 g/dL (12-16); IMMATURE GRANULOCYTES 0.8 % (0-5); LYMPHOCYTES 32.8 % (15-50); MCH 29.9 pg (26.0-34.0); MCHC 32.8 g/dL (31.0-37.0); MCV 91.2 fL (80.0-100.0); MEAN PLATELET VOLUME 10.1 fL (7.4-10.4); MONOCYTES 6.4 % (2-11); PLATELET COUNT 328 10x3/uL (130-400); RBC 4.75 10x6/uL (4.00-5.40); RDW 13.5 % (11.5-14.5); WBC 10.4 10x3/uL (4.8-10.8)
[2019-08-24 16:00] LABS: CALC OSMOLALITY 268 mosm/kg (275-300); CALCIUM 9.1 mg/dL (8.5-10.1); CARBON DIOXIDE 23.4 mmol/L (21.0-32.0); CHLORIDE - SERUM 99 mmol/L (98-107); CREATININE - SERUM 0.8 mg/dL (0.6-1.3); GLUCOSE 140 mg/dL (74-106); POTASSIUM - SERUM 4.1 mmol/L (3.5-5.1); SODIUM 134 mmol/L (136-145); UREA NITROGEN 11 mg/dL (7-18); eGFR NON AFRICAN AMERICAN 89 mL/min (90-120)
[2019-08-24 16:06] LABS: ALBUMIN 3.3 g/dL (3.4-5.0); ALKALINE PHOSPHATASE 89 U/L (30-120); ALT (SGPT) 26 U/L (10-68); BILIRUBIN - TOTAL 0.22 mg/dL (0.2-1.3); PROTEIN - SERUM 8.4 g/dL (6.4-8.2)
[2019-08-24 16:20] LABS: BILIRUBIN NEGATIVE (NEGATIVE); GLUCOSE NEGATIVE (NEGATIVE); KETONE NEGATIVE (NEGATIVE); NITRITE NEGATIVE (NEGATIVE); UROBILINOGEN NORMAL (NORMAL)
[2019-08-24 16:24] LABS: WHITE CELLS - URINE 0-5 /hpf (NEGATIVE)
[2019-08-24 16:25] LABS: BACTERIA FEW /hpf (NEGATIVE); RED CELLS - URINE 0-5 /hpf (0-5)
[2019-08-24] MEDS ORDERED: HYDROCODON-ACE1 EAC2 PO (17:24)
[2019-08-24 17:56] VITALS: BP 136/72
== END 2019-08-24 17:57 | disposition home or self-care (01) ==
LOC: D.ER 15:08
PROVIDERS: Emergency Medicine
DX: R10.30 Lower abdominal pain, unspecified (principal); J45.909 Unspecified asthma, uncomplicated

== ENCOUNTER 2019-09-16 18:12 | Emergency (ER) | payer MEDICAID ==
[~2019-09-16] VITALS: Ht 170.2 cm; Wt 192.3 kg
[~2019-09-16 18:12] MED LIST changes: +HYDROCODON-ACE1 EAC2 PO
[2019-09-16 18:20] VITALS: Ht 170.2 cm; Wt 192.3 kg
[2019-09-16 19:21] LABS: BASOPHILS 0.3 % (0-2); HEMATOCRIT 40.5 % (36.0-48.0); HEMOGLOBIN 13.2 g/dL (12-16); IMMATURE GRANULOCYTES 0.5 % (0-5); LYMPHOCYTES 34.8 % (15-50); MCH 29.8 pg (26.0-34.0); MCHC 32.6 g/dL (31.0-37.0); MCV 91.4 fL (80.0-100.0); MEAN PLATELET VOLUME 9.8 fL (7.4-10.4); MONOCYTES 4.9 % (2-11); NEUTROPHILS 58.5 % (40-80); PLATELET COUNT 322 10x3/uL (130-400); RBC 4.43 10x6/uL (4.00-5.40); RDW 13.7 % (11.5-14.5); WBC 10.7 10x3/uL (4.8-10.8)
[2019-09-16 19:30] LABS: CALC OSMOLALITY 270 mosm/kg (275-300); CALCIUM 8.7 mg/dL (8.5-10.1); CARBON DIOXIDE 24.9 mmol/L (21.0-32.0); CHLORIDE - SERUM 102 mmol/L (98-107); CREATININE - SERUM 0.6 mg/dL (0.6-1.3); GLUCOSE 151 mg/dL (74-106); POTASSIUM - SERUM 3.9 mmol/L (3.5-5.1); SODIUM 134 mmol/L (136-145); UREA NITROGEN 13 mg/dL (7-18); eGFR NON AFRICAN AMERICAN > 90 mL/min (90-120)
[2019-09-16 19:39] LABS: ALBUMIN 3.3 g/dL (3.4-5.0); ALKALINE PHOSPHATASE 73 U/L (30-120); ALT (SGPT) 22 U/L (10-68); AMYLASE - SERUM 23 U/L (25-115); BILIRUBIN - TOTAL 0.17 mg/dL (0.2-1.3); LIPASE 77 U/L (73-393); PROTEIN - SERUM 7.9 g/dL (6.4-8.2)
[2019-09-16 19:40] LABS: TROPONIN-I < 0.017 ng/mL (0.000-0.060)
[2019-09-16] MEDS ORDERED: HYDROCODON-ACE1 EA10 PO ×2 (19:48→21:04)
[2019-09-16 20:30] VITALS: BP 176/81
== END 2019-09-16 20:30 | disposition home or self-care (01) ==
LOC: D.ER 18:12
PROVIDERS: Family Medicine
DX: R10.9 Unspecified abdominal pain (principal); G89.29 Other chronic pain; L50.9 Urticaria, unspecified; J45.909 Unspecified asthma, uncomplicated; Z72.0 Tobacco use

== ENCOUNTER 2019-09-30 07:59 | Day surgery (SDC) | payer MEDICAID ==
[~2019-09-30] VITALS: Ht 170.2 cm; Wt 203.2 kg
[2019-09-30 08:29] LABS: HEMOGLOBIN 13.5 g/dL (12-16); MCH 30.1 pg (26.0-34.0); MCHC 32.9 g/dL (31.0-37.0); MCV 91.5 fL (80.0-100.0); MEAN PLATELET VOLUME 10.1 fL (7.4-10.4); RBC 4.48 10x6/uL (4.00-5.40); RDW 14.1 % (11.5-14.5); WBC 12.7 10x3/uL (4.8-10.8)
[2019-09-30] MEDS ORDERED: TRICOR145 MG PO (08:43)
[2019-09-30] MEDS ORDERED: TYLENOL W/CODEI1 TAB PO (08:44)
[2019-09-30 08:50] VITALS: BP 137/68; Ht 170.2 cm; Wt 203.2 kg
--- NOTE | 2019-09-30 12:51 | NUR ---
1135 AWAKE & ALERT. REQUESTS D/C. GIVEN DISCHARGE INFORMATION INCLUDING: MED REC, SHEET LISTING NSAIDS TO AVOID, HIGH FIBER DIET INFORMATION & POST ENDOSCOPIC D/C INSTRUCTION SHEET. PT VOICED UNDERSTANDING. TO PRIVATE CAR BY THIS NURSE. HOME WITH FATHER. Ashanti TERRAZAS R.N.
--- NOTE | 2019-10-01 14:16 | OP ---
PATIENT NAME: RAY HERRING MEDICAL RECORD: [id number] :86 LOCATION:D.OPS ADMISSION DATE: SURGEON: MOISE DUPREE DO DATE OF OPERATION: 09/30/2019 PROCEDURE: Colonoscopy with biopsies. INDICATIONS FOR PROCEDURE: Irregular bowel habits, left upper quadrant abdominal tenderness, nausea and vomiting, tenderness of periumbilical region. SCOPE: Olympus video pediatric colonoscope. MEDICATIONS: Propofol 800 mg IV per anesthesia. WITHDRAWAL TIME: 6 minutes. ESTIMATED BLOOD LOSS: Minimal. COMPLICATIONS: None. FINDINGS: Informed consent was given. The patient was made comfortable with the above medication. After reaching an adequate level of sedation by slow IV push, the patient was placed on her left side. A digital rectal examination was performed and was normal. The endoscope was then advanced under direct visualization through the rectum to the cecum and terminal ileum. The endoscope was slowly withdrawn and mucosa was carefully examined. The prep quality was good. There were no polyps visualized on today's examination. No diverticula visualized. Retroflexion was performed in the rectum with normal appearing rectal wall being seen. There were no abnormalities in the entire examination. Stool was collected to submit for further studies regarding the patient's history of diarrhea and random biopsies were collected to rule out microscopic colitis. The endoscope was withdrawn from the patient. The patient tolerated the procedure well and there were no complications. IMPRESSION: Normal colon to cecum and terminal ileum. PLAN AND RECOMMENDATIONS: 1. Discharge home when recovery parameters are met. 2. Follow up biopsy specimen results. 3. High fiber diet. 4. Supplement diet with 1 tablespoon of Metamucil daily. 5. Trial of dicyclomine 20 mg t.i.d. p.r.n. loose stools or abdominal pain. 6. Consider cholestyramine if the dicyclomine is not adequate to help with bowel movements as the patient has had a cholecystectomy. 7. Follow up in GI clinic in 4-6 weeks. 8. Recall colonoscopy at age 48 for colon cancer screening purposes. 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
== END 2019-09-30 11:35 | disposition home or self-care (01) ==
LOC: D.OPS 07:59
PROVIDERS: Anesthesiology; ATTEND Internal Medicine Gastroenterology
DX: R19.4 Change in bowel habit (principal); R10.12 Left upper quadrant pain; R11.2 Nausea with vomiting, unspecified; R10.815 Periumbilic abdominal tenderness

== ENCOUNTER 2019-11-01 18:07 | Emergency (ER) | payer MEDICAID ==
[~2019-11-01] VITALS: Ht 170.2 cm; Wt 181.8 kg
[~2019-11-01 18:07] MED LIST changes: +TRICOR145 MG PO; +TYLENOL W/CODEI1 TAB PO
[2019-11-01 18:08] VITALS: BP 145/85; Ht 170.2 cm; Wt 181.8 kg
[2019-11-01] MEDS ORDERED: VOLTAREN75 MG PO (18:21)
[2019-11-01] MEDS ORDERED: VIGAMOX3 ML RIGHT EYE (18:21)
[2019-11-01] MEDS ORDERED: AUGMENTIN 875-11 TAB PO (18:21)
== END 2019-11-01 18:43 | disposition home or self-care (01) ==
LOC: D.ER 18:07
DX: H04.301 Unspecified dacryocystitis of right lacrimal passage (principal); J45.909 Unspecified asthma, uncomplicated; R10.9 Unspecified abdominal pain

== ENCOUNTER 2019-11-09 22:51 | Emergency (ER) | payer MEDICAID ==
[~2019-11-09] VITALS: Ht 170.2 cm; Wt 182.8 kg
[~2019-11-09 22:51] MED LIST changes: +AUGMENTIN 875-11 TAB PO; +VIGAMOX3 ML RIGHT EYE
[2019-11-09 22:59] VITALS: Ht 170.2 cm; Wt 182.8 kg
[2019-11-09] MEDS ORDERED: TYLENOL W/CODEI1 TAB (23:02)
[2019-11-09 23:33] LABS: BASOPHILS 0.4 % (0-2); EOSINOPHILS 3.7 % (0-7); HEMATOCRIT 37.9 % (36.0-48.0); HEMOGLOBIN 12.5 g/dL (12-16); IMMATURE GRANULOCYTES 1.2 % (0-5); MCH 30.2 pg (26.0-34.0); MCV 91.5 fL (80.0-100.0); MEAN PLATELET VOLUME 9.9 fL (7.4-10.4); MONOCYTES 5.2 % (2-11); NEUTROPHILS 58.5 % (40-80); PLATELET COUNT 271 10x3/uL (130-400); RBC 4.14 10x6/uL (4.00-5.40); RDW 13.7 % (11.5-14.5); WBC 8.9 10x3/uL (4.8-10.8)
[2019-11-09 23:44] LABS: CALC OSMOLALITY 270 mosm/kg (275-300); CALCIUM 8.6 mg/dL (8.5-10.1); CARBON DIOXIDE 29.1 mmol/L (21.0-32.0); CHLORIDE - SERUM 101 mmol/L (98-107); CREATININE - SERUM 0.7 mg/dL (0.6-1.3); GLUCOSE 106 mg/dL (74-106); POTASSIUM - SERUM 3.8 mmol/L (3.5-5.1); SODIUM 136 mmol/L (136-145); UREA NITROGEN 9 mg/dL (7-18); eGFR NON AFRICAN AMERICAN > 90 mL/min (90-120)
[2019-11-09 23:51] LABS: ALBUMIN 3.1 g/dL (3.4-5.0); ALKALINE PHOSPHATASE 76 U/L (30-120); ALT (SGPT) 22 U/L (10-68); AMYLASE - SERUM 13 U/L (25-115); LIPASE 54 U/L (73-393); PROTEIN - SERUM 7.1 g/dL (6.4-8.2); TROPONIN-I < 0.017 ng/mL (0.000-0.060)
[2019-11-10] MEDS ORDERED: LASIX20 MG PO (01:20)
[2019-11-10] MEDS ORDERED: POTASSIUM CHLO20 MEQ PO (01:20)
[2019-11-10] MEDS ORDERED: HYDROCODON-ACE1 EAC7 PO (01:23)
[2019-11-10 01:40] VITALS: BP 148/82
== END 2019-11-10 01:40 | disposition home or self-care (01) ==
LOC: D.ER 22:51
PROVIDERS: Emergency Medicine
DX: I87.303 Chronic venous hypertension (idiopathic) without complications of bilateral lower extremity (principal)

== ENCOUNTER 2020-01-02 15:03 | Emergency (ER) | payer MEDICAID ==
[~2020-01-02] VITALS: Ht 170.2 cm; Wt 191.4 kg
[~2020-01-02 15:03] MED LIST changes: +LASIX20 MG PO; +POTASSIUM CHLO20 MEQ PO; +TYLENOL W/CODEI1 TAB
[2020-01-02 15:14] VITALS: Ht 170.2 cm; Wt 191.4 kg
[2020-01-02 15:41] LABS: BASOPHILS 0.4 % (0-2); EOSINOPHILS 0.9 % (0-7); HEMATOCRIT 41.1 % (36.0-48.0); HEMOGLOBIN 13.7 g/dL (12-16); IMMATURE GRANULOCYTES 0.4 % (0-5); LYMPHOCYTES 36.2 % (15-50); MCH 30.2 pg (26.0-34.0); MCHC 33.3 g/dL (31.0-37.0); MCV 90.5 fL (80.0-100.0); MEAN PLATELET VOLUME 9.8 fL (7.4-10.4); MONOCYTES 6.3 % (2-11); NEUTROPHILS 55.8 % (40-80); PLATELET COUNT 269 10x3/uL (130-400); RBC 4.54 10x6/uL (4.00-5.40); RDW 13.5 % (11.5-14.5)
[2020-01-02 16:10] LABS: ANION GAP 16.3 mmol/L (8-16); CALCIUM 8.9 mg/dL (8.5-10.1); CARBON DIOXIDE 23.8 mmol/L (21.0-32.0); CREATININE - SERUM 1.1 mg/dL (0.6-1.3); POTASSIUM - SERUM 4.1 mmol/L (3.5-5.1)
[2020-01-02 16:18] LABS: ALBUMIN 3.2 g/dL (3.4-5.0); BILIRUBIN - TOTAL 0.17 mg/dL (0.2-1.3); PROTEIN - SERUM 7.3 g/dL (6.4-8.2)
[2020-01-02 16:45] VITALS: BP 144/90
== END 2020-01-02 16:45 | disposition home or self-care (01) ==
LOC: D.ER 15:03
PROVIDERS: Family Medicine
DX: R10.9 Unspecified abdominal pain (principal); G89.29 Other chronic pain; F41.9 Anxiety disorder, unspecified; L50.9 Urticaria, unspecified

== ENCOUNTER 2020-02-09 13:46 | Emergency (ER) | payer MEDICAID ==
[~2020-02-09] VITALS: Ht 170.2 cm; Wt 181.8 kg
[2020-02-09 13:58] VITALS: Ht 170.2 cm; Wt 181.8 kg
[2020-02-09 14:42] LABS: BASOPHILS 0.3 % (0-2); HEMATOCRIT 41.4 % (36.0-48.0); HEMOGLOBIN 13.7 g/dL (12-16); IMMATURE GRANULOCYTES 0.3 % (0-5); LYMPHOCYTES 28.4 % (15-50); MCH 30.1 pg (26.0-34.0); MCHC 33.1 g/dL (31.0-37.0); MEAN PLATELET VOLUME 9.9 fL (7.4-10.4); PLATELET COUNT 238 10x3/uL (130-400); RBC 4.55 10x6/uL (4.00-5.40); RDW 13.6 % (11.5-14.5); WBC 11.5 10x3/uL (4.8-10.8)
[2020-02-09 15:01] LABS: CALC OSMOLALITY 266 mosm/kg (275-300); CALCIUM 8.6 mg/dL (8.5-10.1); CARBON DIOXIDE 27.5 mmol/L (21.0-32.0); CHLORIDE - SERUM 101 mmol/L (98-107); CREATININE - SERUM 0.7 mg/dL (0.6-1.3); GLUCOSE 94 mg/dL (74-106); POTASSIUM - SERUM 4.3 mmol/L (3.5-5.1); SODIUM 134 mmol/L (136-145); UREA NITROGEN 10 mg/dL (7-18); eGFR NON AFRICAN AMERICAN > 90 mL/min (90-120)
[2020-02-09 15:07] LABS: ALBUMIN 3.1 g/dL (3.4-5.0); ALKALINE PHOSPHATASE 86 U/L (30-120); ALT (SGPT) 28 U/L (10-68); C-REACTIVE PROTEIN 3.4 mg/dL (0.0-0.9)
[2020-02-09] MEDS ORDERED: BROMFED-DM COU473 ML PO (15:13)
[2020-02-09] MEDS ORDERED: AUGMENTIN 875-11 TAB PO (15:13)
[2020-02-09] MEDS ORDERED: MEDROL DOSE PACK4 MG PO (15:13)
[2020-02-09 15:31] VITALS: BP 136/92
== END 2020-02-09 15:32 | disposition home or self-care (01) ==
LOC: D.ER 13:46
PROVIDERS: Family Medicine
DX: J32.9 Chronic sinusitis, unspecified (principal); J06.9 Acute upper respiratory infection, unspecified; R05 Cough

== ENCOUNTER 2020-08-12 05:08 | Day surgery (SDC) | payer MEDICAID ==
[~2020-08-12] VITALS: Ht 170.2 cm; Wt 198.2 kg
[~2020-08-12 05:08] MED LIST changes: +BROMFED-DM COU473 ML PO; +GLYBURIDE5 M1 PO; +NP THYROID30 MG PO; +OXYIR5 MG PO; +PEPCID40 MG PO; -TYLENOL W/CODEI1 TAB; +VYVANSE40 MG PO
[2020-08-12 05:28] LABS: BASOPHILS 0.1 % (0-2); EOSINOPHILS 1.5 % (0-7); HEMATOCRIT 38.9 % (36.0-48.0); IMMATURE GRANULOCYTES 0.5 % (0-5); LYMPHOCYTE ABS# 3.22 10x3/uL (1.18-3.74); LYMPHOCYTES 37.7 % (15-50); MCH 31.2 pg (26.0-34.0); MCHC 33.4 g/dL (31.0-37.0); MCV 93.3 fL (80.0-100.0); MEAN PLATELET VOLUME 10.6 fL (7.4-10.4); MONOCYTES 6.6 % (2-11); NEUTROPHIL ABS# 4.57 10x3/uL (1.56-6.13); NEUTROPHILS 53.6 % (40-80); RBC 4.17 10x6/uL (4.00-5.40); RDW 13.8 % (11.5-14.5); WBC 8.5 10x3/uL (4.8-10.8)
[2020-08-12 05:39] LABS: PLATELET COUNT 229 10x3/uL (130-400)
[2020-08-12 05:55] LABS: CALC OSMOLALITY 272 mosm/kg (275-300); CALCIUM 7.9 mg/dL (8.5-10.1); CARBON DIOXIDE 23.7 mmol/L (21.0-32.0); CHLORIDE - SERUM 100 mmol/L (98-107); CREATININE - SERUM 0.7 mg/dL (0.6-1.3); GLUCOSE 161 mg/dL (74-106); POTASSIUM - SERUM 3.8 mmol/L (3.5-5.1); SODIUM 135 mmol/L (136-145); UREA NITROGEN 12 mg/dL (7-18); eGFR NON AFRICAN AMERICAN > 90 mL/min (90-120)
[2020-08-12 06:29] VITALS: BP 151/87; Ht 170.2 cm; Wt 198.2 kg
--- NOTE | 2020-08-12 08:33 | NUR ---
RIGHT POSTERIOR FOREARM WITH ABRASION NOTED; PATIENT STATES SHE FELL A FEW DAYS AGO WHILE HELPING HER DAD. RIGHT LOWER QUADRANT OF ABDOMEN WITH DIME SIZE LESION NOTED. NOTED, DINESH CORDERO
== END 2020-08-12 11:13 | disposition home or self-care (01) ==
LOC: D.OPS 05:08
PROVIDERS: Anesthesiology; ATTEND Obstetrics & Gynecology Maternal & Fetal Medicine
DX: R10.2 Pelvic and perineal pain (principal); Z87.42 Personal history of other diseases of the female genital tract; N80.9 Endometriosis, unspecified

== ENCOUNTER 2020-10-15 19:04 | Emergency (ER) | payer MEDICAID ==
[~2020-10-15] VITALS: Ht 170.2 cm; Wt 197.8 kg
[2020-10-15] MEDS ORDERED: NEURONTIN600 MG PO (19:16)
[2020-10-15 19:17] VITALS: Ht 170.2 cm; Wt 197.8 kg
[2020-10-15] MEDS ORDERED: HYDROCODON-ACE1 EA10 PO (20:42)
[2020-10-15 20:51] VITALS: BP 171/91
== END 2020-10-15 20:51 | disposition home or self-care (01) ==
LOC: D.ER 19:04
DX: M54.16 Radiculopathy, lumbar region (principal); G62.9 Polyneuropathy, unspecified; E11.9 Type 2 diabetes mellitus without complications

== ENCOUNTER 2020-10-21 18:53 | Emergency (ER) | payer MEDICAID ==
[~2020-10-21] VITALS: Ht 170.2 cm; Wt 198.2 kg
[~2020-10-21 18:53] MED LIST changes: +NEURONTIN600 MG PO
[2020-10-21 18:58] VITALS: BP 176/94; Ht 170.2 cm; Wt 198.2 kg
[2020-10-21] MEDS ORDERED: CYCLOBENZAPRINE10 MG PO (22:00)
[2020-10-21] MEDS ORDERED: NAPROSYN500 MG PO (22:00)
== END 2020-10-21 22:07 | disposition home or self-care (01) ==
LOC: D.ER 18:53
DX: M54.5 Low back pain (principal); G89.4 Chronic pain syndrome; G62.9 Polyneuropathy, unspecified; E11.9 Type 2 diabetes mellitus without complications; E07.9 Disorder of thyroid, unspecified